=== PATIENT | female | born 1945 | race Caucasian/White ===

== ENCOUNTER → 2016-09-22 | Outpatient (CLI) | payer BC ==
[~2016-09-22] MED LIST: CHOL100010 PO; DABI150C PO; ESCI10TA17 PO; FLUT0.15 NAE; LEVO100T7 PO; LORA10CA2 PO; METO100T44 PO; MULT-506 PO; VRPSR180 PO
== END | disposition home or self-care (01) ==
LOC: C.LABBFT 12:42
PROVIDERS: ATTEND Physician Assistant Medical
DX: I48.0 Paroxysmal atrial fibrillation (principal); Z51.81 Encounter for therapeutic drug level monitoring; Z79.899 Other long term (current) drug therapy

== ENCOUNTER → 2016-10-08 | Outpatient (CLI) | payer BC ==
[2016-10-08 17:40] LABS: BASO % 0.8 %; BASO ABS # 0.07 K/uL (0-0.2); COMPLETE YES; EOS % 4.5 %; HEMATOCRIT 44.6 % (37-47); IG% 0.2 %; LYMPH % 24.5 %; MEAN CELL VOLUME 93.1 fL (80-100); MEAN CORPUSCULAR HEMOGLOBIN 30.7 pg (25-34); MEAN PLATELET VOLUME 10.1 fL (7.4-10.4); PLATELET COUNT 401 K/uL (130-400); RED BLOOD COUNT 4.79 M/uL (4.2-5.4); WHITE BLOOD COUNT 8.97 K/uL (4.8-10.8)
[2016-10-08 17:51] LABS: ALT/SGPT 31 U/L (12-78); BLOOD UREA NITROGEN 26 mg/dl (7-18); BUN/CREATININE RATIO 14.4 (10-20); CALCIUM 9.7 mg/dl (8.5-10.1); CARBON DIOXIDE 26 mmol/L (21-32); CHLORIDE 101 mmol/L (98-107); CHOLESTEROL 235 mg/dl (0-200); GLUCOSE 103 mg/dl (70-99); POTASSIUM 3.6 mmol/L (3.5-5.1); SODIUM 139 mmol/L (136-145)
[2016-10-08 18:01] LABS: ALB/GLOB RATIO 1.2 (0.9-2); ALKALINE PHOSPHATASE 92 U/L (45-117); AST/SGOT 18 U/L (15-37); CHOLESTEROL/HDL RATIO 4.9; HDL CHOLESTEROL 48 mg/dl; LDL CHOLESTEROL CALCULATED 147 mg/dl; TRIGLYCERIDES 199 mg/dl (0-150); VERY LOW DENSITY LIPOPROT CALC 40 mg/dl
[2016-10-09 06:38] LABS: ESTIMATED AVERAGE GLUCOSE 123 mg/dl; HA1C FLAG Normal (Normal)
== END | disposition home or self-care (01) ==
LOC: C.LABBFT 12:01
PROVIDERS: ATTEND Internal Medicine Cardiovascular Disease
DX: Z00.00 Encounter for general adult medical examination without abnormal findings (principal); Z11.59 Encounter for screening for other viral diseases; E03.9 Hypothyroidism, unspecified; I10 Essential (primary) hypertension; R73.01 Impaired fasting glucose; E78.5 Hyperlipidemia, unspecified; I48.0 Paroxysmal atrial fibrillation

== ENCOUNTER → 2016-11-19 | Outpatient (CLI) | payer BC ==
[2016-11-19 13:20] LABS: BLOOD UREA NITROGEN 24 mg/dl (7-18); BUN/CREATININE RATIO 17.2 (10-20); CARBON DIOXIDE 27 mmol/L (21-32); CHLORIDE 103 mmol/L (98-107); GLUCOSE 93 mg/dl (70-99); POTASSIUM 3.6 mmol/L (3.5-5.1); SODIUM 138 mmol/L (136-145)
[2016-11-19 13:31] LABS: THYROID STIMULATING HORMONE 0.264 uIu/ml (0.300-4.500)
== END | disposition home or self-care (01) ==
LOC: C.LABBFT 10:03
PROVIDERS: ATTEND Internal Medicine
DX: E03.9 Hypothyroidism, unspecified (principal); N18.3 Chronic kidney disease, stage 3 (moderate)

== ENCOUNTER → 2017-03-23 | Outpatient (CLI) | payer BC ==
[~2017-03-23] MED LIST changes: -METO100T44 PO; +METO1TAB69 PO
--- NOTE | 2017-03-24 15:21 | MAMMOGRAPHY REPORT ---
BILATERAL DIGITAL SCREENING MAMMOGRAM TOMOSYNTHESIS WITH CAD: 03/23/2017 CLINICAL HISTORY: Routine screening. Patient has no complaints. TECHNIQUE: Breast tomosynthesis in addition to standard 2D mammography was performed. Current study was also evaluated with a Computer Aided Detection (CAD) system. COMPARISON: Comparison is made to exams dated: 03/21/2016 mammogram, 03/20/2015 ultrasound, 03/20/20 15 mammogram, 03/12/2015 mammogram, 03/09/2014 mammogram, and 03/01/2013 mammogram - [facility]. BREAST COMPOSITION: The tissue of both breasts is heterogeneously dense, which may obscure small mas ses. FINDINGS: There are mild vascular calcifications and scattered benign coarse calcifications in the b reasts. No suspicious mass, architectural distortion or cluster of microcalcifications is seen. IMPRESSION: ACR BI-RADS CATEGORY 2: BENIGN There is no mammographic evidence of malignancy. A 1 year screening mammogram is recommended. The pa tient will receive written notification of the results. Approximately 10% of breast cancers are not detected with mammography. A negative mammographic report should not delay biopsy if a clinically suggestive mass is present. Amara Trejo M.D. ay/:03/24/2017 08:22:17 Emergency Medicine Nurse Practitioner: Jessica NATHAN(R)(M), [facility] letter sent: Normal 1/2 BI-RADS Code: ACR BI-RADS Category 2: Benign
== END | disposition home or self-care (01) ==
LOC: C.MAMM 11:41
PROVIDERS: ATTEND Obstetrics & Gynecology
DX: Z12.31 Encounter for screening mammogram for malignant neoplasm of breast (principal)

== ENCOUNTER → 2017-06-05 | Outpatient (CLI) | payer BC ==
[~2017-06-05] MED LIST changes: +METO100T44 PO; -METO1TAB69 PO
[2017-06-05 12:50] LABS: BLOOD UREA NITROGEN 19 mg/dl (7-18); CALCIUM 9.3 mg/dl (8.5-10.1); CARBON DIOXIDE 23 mmol/L (21-32); GLUCOSE 106 mg/dl (70-99); POTASSIUM 3.8 mmol/L (3.5-5.1); SODIUM 135 mmol/L (136-145)
== END | disposition home or self-care (01) ==
LOC: C.LABBFT 10:35
PROVIDERS: ATTEND Internal Medicine
DX: Z00.00 Encounter for general adult medical examination without abnormal findings (principal); E03.9 Hypothyroidism, unspecified; N18.3 Chronic kidney disease, stage 3 (moderate)

== ENCOUNTER → 2018-01-11 | Outpatient (CLI) | payer BC | END | disposition home or self-care (01) | LOC: C.MAMM 12:13 | PROVIDERS: ATTEND Internal Medicine | DX: Z00.00 Encounter for general adult medical examination without abnormal findings (principal); M81.0 Age-related osteoporosis without current pathological fracture ==

== ENCOUNTER 2018-12-12 09:02 | Inpatient (IN) ==
[2018-12-12] MEDS ORDERED: dilTIAZem HCl 5 MG/ML 5 ML VIAL IV ONE (09:23)
[2018-12-12] MEDS ORDERED: dilTIAZem HCl 5 MG/ML 5 ML VIAL IV STA (09:24)
[2018-12-12] MEDS ORDERED: SODIUM CHLORIDE 0.9% 500 ML IV SCH (09:30)
[2018-12-12] MEDS ORDERED: dilTIAZem HCl 125 MG in DEXTROSE 5% 100 ML IV SCH (09:30)
[2018-12-12 09:35] LABS: Hematocrit (blood only) 40.2 % (37-47); Mean Corpuscular Hgb Conc 34.8 g/dL (32-36); Mean Corpuscular Volume 90.1 fL (80-100); Platelet Count 321 K/uL (130-400); RDW Coefficient of Variation 13.9 % (11.5-14.5); RDW Standard Deviation 46.1 fL (36.4-46.3); Red Blood Count 4.46 M/uL (4.2-5.4); White Blood Count 14.06 K/uL (4.8-10.8)
[2018-12-12 09:36] LABS: iSTAT Creatinine 1.6 mg/dl (0.6-1.3); iSTAT Ionized Calcium 1.09 mmol/l (1.12-1.32)
--- NOTE | 2018-12-12 09:43 | XRay Report ---
XR chest 1V portable HISTORY: 73 years-old Female Chest Pain acute atypical chest pain COMPARISON: Chest radiographs 07/12/2018 TECHNIQUE: Portable AP view of the chest FINDINGS: Cardiac silhouette is enlarged, unchanged. Stable positioning of left subclavian pacer. Calcification the thoracic aortic arch. No pneumothorax or large pleural effusion, focal airspace consolidation or overt pulmonary edema. Mild blunting of the left costophrenic angle. Degenerative changes of the kian ulders and spine. IMPRESSION: 1. Cardiomegaly without overt pulmonary 2. Mild blunting of the left costophrenic angle may be secondary to atelectasis or trace effusion. The above report was generated using voice recognition software. It may contain grammatical, syntax o r spelling errors. Electronically signed by: Demetrius Nesbitt M.D. 12/12/2018 9:41 AM
[2018-12-12 09:45] LABS: Alanine Aminotransferase 38 U/L (12-78); Albumin Level 3.2 gm/dl (3.4-5.0); Aspartate Aminotransferase 21 U/L (15-37); BUN Creatinine Ratio 7.7 (10-20); Blood Urea Nitrogen 13 mg/dl (7-18); Calcium 9.4 mg/dl (8.5-10.1); Carbon Dioxide 23 mmol/L (21-32); Chloride 98 mmol/L (98-107); Creatinine Clr Calc Pharmacy 24.7 ml/min; Est GFR (African American) 36.1; Est GFR (Non-African American) 31.2; Glucose 136 mg/dl (70-99); Sodium 132 mmol/L (136-145)
[2018-12-12 09:46] LABS: INR 1.3 (0.9-1.1); Partial Thromboplastin Ratio 1.5; Prothrombin Time 12.8 Seconds (9.0-12.0)
[2018-12-12 09:50] LABS: Albumin Globulin Ratio 0.7 (0.9-2); Alkaline Phosphatase 90 U/L (45-117); Bilirubin,Total 0.9 mg/dl (0.2-1); Creatine Kinase 67 U/L (26-192); Globulin 4.5 gm/dl (2.5-4.0); Total Protein 7.7 gm/dl (6.4-8.2); Troponin I < 0.015 ng/ml (0-0.045)
[2018-12-12] MEDS ORDERED: METOPROLOL TARTRATE 1 MG/ML VIAL IV STA ×3 (09:53→10:54)
[2018-12-12] MEDS ORDERED: ACETAMINOPHEN 325 MG TAB ONE (09:57)
--- NOTE | 2018-12-12 10:14 | Emergency Department Note ---
Entered by Yoselyn Gonzalez acting as a scribe for Miguel Blair DO History of Present Illness General Chief complaint: Chest Pain Stated complaint: chest pain Time Seen by Provider: 12/12/18 09:23 Source: patient and family (daughter) History of Present Illness Onset (ago): hour(s) (this morning) Location: chest Pain Consistency: + other (episode) Maximum Pain Intensity: 0 Quality: + other (cardiac issue) Relieved By: not by medication (Pradaxa) Associated symptoms: + denies other symptoms (chest pain, lightheadedness ) and + other (diaphoresis, fatigue, instability on feet, back pain, hot/cold feelings, electrolyte imbalance) The patient is a 73 year old female that is presenting to the Emergency Room with complaints of an episode of cardiac issues that worsened this morning. The patient reports that she was feeling nauseous and unstable on her feet. She states that she had back pain but denies any true chest pain. She notes that she currently feels fatigued but denies feeling lightheaded. She reports that she has a history of atrial fibrillation and that she has a pacemaker in place. She denies that she has a defibrillator in place. She notes that she takes Pradaxa. She states that she has been compliant with her medication but notes that she was unable to take her medication this morning secondary to her nausea. The patients daughter reports that the patient was diaphoretic this morning and was unstable on her feet. Her daughter states that the patient fell in the hallway but she denies that the patient hit her head. Her daughter reports that the patient has been unable to walk more than 10 steps at a time without having to sit down due to fatigue. Her daughter notes that the patient was recently in a hospital in [place] for 4 days and diagnosed with a possible UTI. Her daughter states that the patient went to the hospital at that time because she was unstable on her feet and was unable to get herself out of bed. Her daughter notes that the patient was alternating between feeling hot and cold before, during, and after the hospital stay. Her daughter reports that the patient was given fluid during her stay and notes that she went into congestive heart failure as a result. The patients daughter notes that the patients sodium and potassium levels were low during her hospital stay. Her daughter states that the patient had an MRI, CT, and echo completed at that time. Her daughter notes that the patient was started on an antibiotic for a UTI due to some bacteria in her urine culture and an elevated white blood count. Her daughter states that the patient has not felt like herself since being discharged. Her daughter reports that the patient is always in atrial fibrillation. Home Medications Home Medications Medication Instructions Recorded Confirmed Type DABIGATRAN ETEXILATE MESYLATE 150 mg PO BID #0 cap 03/22/14 History (PRADAXA) Escitalopram (Lexapro) 10 mg PO DAILY #0 tab 03/22/14 History LORATADINE (CLARITIN) 10 mg PO DAILY PRN #0 cap 03/22/14 History Verapamil HCl (Verapamil HCl ER) 360 mg PO DAILY #180 03/22/14 History CHOLECALCIFEROL (Vitamin D) 2,000 inter.unit PO DAILY #0 tab 11/04/15 History Fluticasone Propionate (Nasal) 2 spry LAKESHA DAILY #0 11/04/15 History (Flonase Allergy Relief) LEVOTHYROXINE SODIUM 100 mg PO DAILY #0 11/04/15 History Metoprolol Succ (Toprol Xl) 100 mg PO DAILY #0 tab 11/04/15 History (Toprol-Xl ) Multivitamin 1 tab PO DAILY #0 tab 11/04/15 History Allergies Allergy/AdvReac Type Severity Reaction Status Date / Time No Known Allergies Allergy Unverified 11/04/15 14:21 Past Med/Surg History Medical History Pacemaker Episode of shaking (Acute) Headache (Acute) Stroke (Resolved) Migraine (Chronic) Atrial fibrillation (Chronic) Complete heart block Episode of shaking (Acute) Family History Other Family history non-contributory Social History Preferred Language: Algerian marital status: Current Living Situation: Spouse current occupational status: retired Feels Safe at Home: Yes Smoking Status: Never smoker Review of Systems See HPI for pertinent positives & negatives. and A total of 10 systems reviewed and were otherwise negative Physical Exam Vital Signs Vital Signs - 24 hr 12/12/18 09:25 12/12/18 09:29 12/12/18 09:30 Temperature 36.5 C Temperature Source Oral Sepsis Recent Fever Within 48 Hours No Sepsis New/Unexplained Change in Mental Status No Sepsis Action Taken by Nursing No Action Required Pulse Rate 190 H Pulse Rate [Apical] 135 H Respiratory Rate 20 Respiratory Effort / Characteristics Non-Labored Respiratory Depth Normal Respiratory Pattern Regular Blood Pressure 120/60 Blood Pressure [Right Arm] 110/69 Blood Pressure Mean 80 Blood Pressure Mean [Right Arm] 82 Pulse Oximetry 95 95 96 Oxygen Delivery Method Nasal Cannula Nasal Cannula Nasal Cannula Oxygen Flow Rate 3 3 12/12/18 09:54 Temperature Temperature Source Sepsis Recent Fever Within 48 Hours Sepsis New/Unexplained Change in Mental Status Sepsis Action Taken by Nursing Pulse Rate Pulse Rate [Apical] 130 H Respiratory Rate 26 H Respiratory Effort / Characteristics Respiratory Depth Respiratory Pattern Blood Pressure Blood Pressure [Right Arm] 120/68 Blood Pressure Mean Blood Pressure Mean [Right Arm] 85 Pulse Oximetry 100 Oxygen Delivery Method Nasal Cannula Oxygen Flow Rate CONSTITUTIONAL/VITAL SIGNS: Reviewed / noted above. GENERAL: Non-toxic in appearance. INTEGUMENTARY: Warm, dry, and [place]. HEAD: Normocephalic. EYES: without scleral icterus or trauma. ENT/OROPHARYNX: clear and moist. LYMPHADENOPATHY/NECK: Is supple without lymphadenopathy or meningismus. RESPIRATORY: Lungs clear and equal. CARDIOVASCULAR: Rapid irregular heart rate. GI/ABDOMEN: Soft and nontender. No organomegaly or pulsatile mass. No rebound or guarding. Normal bowel sounds. EXTREMITIES: Warm and well perfused. BACK: No CVA tenderness. NEUROLOGICAL: Intact without focal deficits. PSYCHIATRIC: normal affect. MUSCULOSKELETAL: Normally developed with good muscle tone. Course 0910:The patient was evaluated in room B01. A complete history and physical examination was performed. 0953: Upon reevaluation, the patient is still tachycardic. I ordered Lopressor- IV at this time. 1010: I discussed the patient's case with Dr. Ortega [facility], who will evaluate the patient for further management and care. 1020: Upon reevaluation, the patient is resting comfortably. I discussed laborat ory and radiographic results with the patient. She verbalized agreement of the treatment plan. The patient will be evaluated for further management and care. Consultations Consultation #1: I discussed the patient's case with Dr. Ortega [facility] [place], who will evaluate the patient for further management and care. Time: 10:10 Administered Medications Diltiazem HCl 125 mg/ Dextrose 125 mls @ 10 mls/hr IV .[id number] TRI; Protocol Stop: 01/11/19 09:29 Last Admin: 12/12/18 09:43 Dose: 10 mg/hr, 10 mls/hr Documented by: [id number] Cosigned by: [id number] Discontinued Medications Acetaminophen (Tylenol) Confirm Administered Dose 650 mg .ROUTE .STK-MED ONE Stop: 12/12/18 09:58 Last Admin: 12/12/18 09:58 Dose: 650 mg Documented by: [id number] Diltiazem HCl (Cardizem) Confirm Administered Dose 25 mg IV .STK-MED ONE Stop: 12/12/18 09:24 Last Increment: 12/12/18 09:24 Dose: 20 mg Documented by: [id number] Cosigned by: [id number] Diltiazem HCl (Cardizem) 20 mg IV NOW STA Stop: 12/12/18 09:25 Last Admin: 12/12/18 09:32 Dose: Not Given Documented by: [id number] Sodium Chloride (Nss) 500 mls @ 999 mls/hr IV .Q31M TRI Stop: 12/12/18 10:00 Last Infusion: 12/12/18 09:45 Dose: 0 mls/hr Documented by: [id number] Admin: 12/12/18 09:32 Dose: 999 mls/hr Documented by: [id number] Metoprolol Tartrate (Lopressor) 5 mg IV NOW STA Stop: 12/12/18 09:54 Last Admin: 12/12/18 09:59 Dose: 5 mg Documented by: [id number] Medical Decision Making Differential Diagnosis Differential diagnosis considered includes acute myocardial infarction, acute coronary syndrome, myocarditis, pericarditis, pericardial effusions /tamponad, esophageal perforation, thoracic aortic dissection, pulmonary embolism, pneumon ia, pneumothorax, pancreatitis, shingles, acute cholecystitis, perforated abdominal viscus. Medical Records Attestation: I reviewed the patient's medical records. Home Medications Current Medication List: was personally reviewed by me Laboratory Data Attestation: I reviewed the patient's lab results. Result diagrams: 12/12/18 09:17 12/12/18 09:17 Lab Results 12/12/18 12/12/18 12/12/18 Range/Units 09:17 09:17 09:17 WBC 14.06 H (4.8-10.8) K/uL RBC 4.46 (4.2-5.4) M/uL Hgb 14.0 (12.0-16.0) g/dL POC Hgb (12.0-16.0) g/dl Hct 40.2 (37-47) % POC Hct (37-47) % MCV 90.1 (80-100) fL MCH 31.4 (25-34) pg MCHC 34.8 (32-36) g/dL RDW Std Deviation 46.1 (36.4-46.3) fL RDW Coeff of Hernan 13.9 (11.5-14.5) % Plt Count 321 (130-400) K/uL MPV 9.0 (7.4-10.4) fL PT 12.8 H (9.0-12.0) Seconds INR 1.3 H (0.9-1.1) APTT 41.0 H (21.0-31.0) Seconds PTT Ratio 1.5 POC Sodium (135-144) mEq/L Sodium 132 L (136-145) mmol/L POC Potassium (3.3-5.0) mEq/L Potassium 4.0 (3.5-5.1) mmol/L POC Chloride (101-112) mEq/L Chloride 98 (98-107) mmol/L Carbon Dioxide 23 (21-32) mmol/L POC Total CO2 (24-31) mEq/l Anion Gap 11.0 (3-11) POC Anion Gap (16-25) mmol/L POC BUN (7-18) mg/dl BUN 13 (7-18) mg/dl Creatinine 1.63 H (0.6-1.2) mg/dl POC Creatinine (0.6-1.3) mg/dl Est Cr Clr Drug Dosing 24.7 ml/min Est GFR ( Amer) 36.1 Est GFR (Non-Af Amer) 31.2 BUN/Creatinine Ratio 7.7 L (10-20) Glucose 136 H (70-99) mg/dl POC Glucose (other) (70-99) mg/dl Calcium 9.4 (8.5-10.1) mg/dl POC Ioniz Calcium Diandra (1.12-1.32) mmol/l Total Bilirubin 0.9 (0.2-1) mg/dl AST 21 (15-37) U/L ALT 38 (12-78) U/L Alkaline Phosphatase 90 (45-117) U/L Total Creatine Kinase 67 (26-192) U/L POC Troponin I (0-0.045) ng/ml Troponin I < 0.015 (0-0.045) ng/ml Total Protein 7.7 (6.4-8.2) gm/dl Albumin 3.2 L (3.4-5.0) gm/dl Globulin 4.5 H (2.5-4.0) gm/dl Albumin/Globulin Ratio 0.7 L (0.9-2) Lipase 99 (73-393) U/L 12/12/18 12/12/18 Range/Units 09:21 09:22 WBC (4.8-10.8) K/uL RBC (4.2-5.4) M/uL Hgb (12.0-16.0) g/dL POC Hgb 15.0 (12.0-16.0) g/dl Hct (37-47) % POC Hct 44 (37-47) % MCV (80-100) fL MCH (25-34) pg MCHC (32-36) g/dL RDW Std Deviation (36.4-46.3) fL RDW Coeff of Hernan (11.5-14.5) % Plt Count (130-400) K/uL MPV (7.4-10.4) fL PT (9.0-12.0) Seconds INR (0.9-1.1) APTT (21.0-31.0) Seconds PTT Ratio POC Sodium 131 L (135-144) mEq/L Sodium (136-145) mmol/L POC Potassium 4.0 (3.3-5.0) mEq/L Potassium (3.5-5.1) mmol/L POC Chloride 96 L (101-112) mEq/L Chloride (98-107) mmol/L Carbon Dioxide (21-32) mmol/L POC Total CO2 19 L (24-31) mEq/l Anion Gap (3-11) POC Anion Gap 20.0 (16-25) mmol/L POC BUN 13 (7-18) mg/dl BUN (7-18) mg/dl Creatinine (0.6-1.2) mg/dl POC Creatinine 1.6 H (0.6-1.3) mg/dl Est Cr Clr Drug Dosing ml/min Est GFR ( Amer) Est GFR (Non-Af Amer) BUN/Creatinine Ratio (10-20) Glucose (70-99) mg/dl POC Glucose (other) 143 H (70-99) mg/dl Calcium (8.5-10.1) mg/dl POC Ioniz Calcium Diandra 1.09 L (1.12-1.32) mmol/l Total Bilirubin (0.2-1) mg/dl AST (15-37) U/L ALT (12-78) U/L Alkaline Phosphatase (45-117) U/L Total Creatine Kinase (26-192) U/L POC Troponin I < 0.03 (0-0.045) ng/ml Troponin I (0-0.045) ng/ml Total Protein (6.4-8.2) gm/dl Albumin (3.4-5.0) gm/dl Globulin (2.5-4.0) gm/dl Albumin/Globulin Ratio (0.9-2) Lipase (73-393) U/L Imaging Data Radiologist's Impression: Radiology results as stated below per my review and the radiologist's interpretation: XR chest 1V portable HISTORY: 73 years-old Female Chest Pain acute atypical chest pain COMPARISON: Chest radiographs 07/12/2018 TECHNIQUE: Portable AP view of the chest FINDINGS: Cardiac silhouette is enlarged, unchanged. Stable positioning of left subclavian pacer. Calcification the thoracic aortic arch. No pneumothorax or large pleural effusion, focal airspace consolidation or overt pulmonary edema. Mild blunting of the left costophrenic angle. Degenerative changes of the shoulders and spine. IMPRESSION: 1. Cardiomegaly without overt pulmonary 2. Mild blunting of the left costophrenic angle may be secondary to atelectasis or trace effusion. The above report was generated using voice recognition software. It may contain grammatical, syntax or spelling errors. Electronically signed by: Demetrius Nesbitt M.D. 12/12/2018 9:41 AM ECG Data Attestation: I personally reviewed and interpreted this ECG as follows: Indication: chest pain Rate (beats per minute): 194 Rhythm: atrial fibrillation Findings: no PAC, no PVC, no ST elevation and no ectopy Blood Pressure Blood Pressure Findings: Normal blood pressure MDM Narrative This is a 73-year-old female who presents to the ED with a chief complaint of generalized weakness and fatigue. The patient has a history of A. fib as well as a pacemaker. She is chronically on Pradaxa. The patient states that her symptoms have been going on for several days but worse today. Her initial EKG shows A. fib with a rate of 194. No ischemic changes. Her physical exam reve als generalized weakness. She does have a rapid irregular pulse on exam. White blood cell count was 14. Creatinine was 1.63. Troponin was negative and a chest x-ray was negative for acute disease. Other electrolytes and chemistries were unremarkable. The patient was initially treated with IV Cardizem bolus 20 mg and a 10 mg/h drip. She continued to be somewhat tachycardic with heart rates in the 120s to 140s. The patient was then given 5 mg IV Lopressor this decreased her rate to the 100-110's. The patient's symptoms did improve. She will be seen by the hospitalist, and I spoke with. Impression & Plan Atrial fibrillation with RVR Critical Care Time Critical Care Time: Yes Total Critical Care Time: 35 I have personally spent 35 minutes of critical care time in the direct management of this patient. This includes bedside care, interpretation of diagnostic studies, and testing, discussion with consultants, patient, and [facility], and other required patient management activities. This 35 minutes is in excess of all separately billable procedures. Discharge Plan Visit Data Chief Complaint: Chest Pain Stated Complaint: chest pain ED Provider: Miguel Blair Discharge Problem: Atrial fibrillation with RVR Patient Disposition: Being Evaluated by Hospitalist Forms Stand Alone Forms: Call Back Authorization, [facility] Prescriptions Prescriptions: No Action DABIGATRAN ETEXILATE MESYLATE (PRADAXA) 150 MG capsule 150 mg PO BID Qty: 0 RF: 0 Escitalopram (Lexapro) 10 MG tablet 10 mg PO DAILY Qty: 0 RF: 0 LORATADINE (CLARITIN) 10 MG capsule 10 mg PO DAILY PRN (Reason: Nasal Congestion) Qty: 0 RF: 0 Verapamil HCl (Verapamil HCl ER) 180 MG [id number] 360 mg PO DAILY Qty: 180 RF: 0 Fluticasone Propionate (Nasal) (Flonase Allergy Relief) 50 MCG/ACT SPR 2 spry LAKESHA DAILY Qty: 0 RF: 0 LEVOTHYROXINE SODIUM 100 MCG tablet 100 mg PO DAILY Qty: 0 RF: 0 Metoprolol Succ (Toprol Xl) (Toprol-Xl ) 100 MG [id number] 100 mg PO DAILY Qty: 0 RF: 0 Multivitamin tablet 1 tab PO DAILY Qty: 0 RF: 0 CHOLECALCIFEROL (Vitamin D) 1,000 INTER.UNIT tablet 2,000 inter.unit PO DAILY Qty: 0 RF: 0 Referrals Referrals: Vivien Fragoso MD [Primary Care Provider] - The scribe's documentation has been prepared under my direction and personally reviewed by me in its entirety. I confirm that the note above accurately reflects all work, treatment, procedures, and medical decision making performed by me.
[2018-12-12 10:23] LABS: Basophils # (auto) 0.04 K/uL (0-0.2); Basophils % (auto) 0.3 %; Eosinophils # (auto) 0.02 K/uL (0-0.5); Eosinophils % (auto) 0.1 %; Immature Granulocytes # (auto) 0.07 K/uL (0.00-0.02); Immature Granulocytes % (auto) 0.5 %; Lymphocytes # (auto) 1.84 K/uL (1.2-3.4); Lymphocytes % (auto) 13.1 %; Monocytes # (auto) 0.65 K/uL (0.11-0.59); Monocytes % (auto) 4.6 %; Neutrophils # (auto) 11.44 K/uL (1.4-6.5); Neutrophils % (auto) 81.4 %
--- NOTE | 2018-12-12 10:56 | History & Physical Report ---
Date of Service December 12, 2018 Assessment & Plan (1) Atrial fibrillation with RVR: 73 y/o F Hx CVA 2009, HTN, HLD, hypothyroid, SVTs, chronic AF, complete heart block 2016 leading to pacer placement. The pt presented with nonspecific complaint of nausea, diaphoresis, fatigue and an unsteady gait. She had some back pain but denied CP or SOB. She was apparently unable to walk across the room without resting due to fatigue. When she arrived in the ER, rapid AF in the 200BPM range was apparent. She responded to a dose of diltiazem and IV Metoprolol with symptomatic improvement, but her rate remained in the 120s. Initial labs demonstrated mild ALINA and hyponatremia, and were otherwise unremarkable including a normal troponin. 1) Rapid AF - placed on a Diltiazem drip. Received 7.5 mg Metoprolol. We can be liberal with the rate agents contingent on her BP as she has a pacer. She is anticoagulated with Pradaxa. Her daily Toprol was initilly prescribed at 100QD and then reduced o 50. 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 Due to her symptoms, an additional trop is pending. 2) History of CVA - remains on Pradaxa 3) HTN - cont Verapamil, Toprol when off Diltiazem drip 4) HLD is reported in chart - ni treated 5) Hypothyroidism - cont Synthroid - TSH pending Full code - Pradaxa prophylaxis Total time for this admit including review of labs, meds, imaging, records - discussion with pt and ER attending - 38 min Present on Admission?: Yes History of Present Illness Chief Complaint: Rapid AF Primary Care Provider: Vivien Fragoso MD 73 y/o F Hx CVA 2009, HTN, HLD, hypothyroid, SVTs, chronic AF, complete heart block 2016 leading to pacer placement. The pt presented with nonspecific complaint of nausea, diaphoresis, fatigue and an unsteady gait. She had some back pain but denied CP or SOB. She was apparently unable to walk across the room without resting due to fatigue. When she arrived in the ER, rapid AF in the 200BPM range was apparent. She responded to a dose of diltiazem and IV Metoprolol with symptomatic improvement, but her rate remained in the 120s. Initial labs demonstrated mild ALINA and hyponatremia, and were otherwise unremarkable including a normal troponin. PMH: 1) Chornic AF 2) SVTs 3) CVA 2009 - prior to diagnosis of arrhythmias - residual L weakness - was treated with TPA 4) Hypothyroidism 5) HTN 6) HLD - untreated 7) Vitamin D deficiency 8) Complete heart block - may have occured as she was requiring a high dose of rate agents for AF - she received a pacer in 2016 Surgical: No surgical history aside from a pacer Social: No history of drinking or smoking Family: Father due to lung disease - possibly COPD and silicosis Mother following head trauma Allergies Allergy/AdvReac Type Severity Reaction Status Date / Time No Known Allergies Allergy Unverified 12/12/18 11:00 Home Medications Home Medications Medication Instructions Recorded Confirmed Type acetaminophen [Tylenol] 325 mg PO Q6H PRN 12/12/18 12/12/18 History cephalexin 500 mg PO TID 12/12/18 12/12/18 History cholecalciferol (vitamin D3) 2,000 unit PO HS 12/12/18 12/12/18 History [Vitamin D3] dabigatran etexilate [Pradaxa] 150 mg PO BID 12/12/18 12/12/18 History escitalopram oxalate 10 mg PO QAM 12/12/18 12/12/18 History fluticasone propionate [Flonase 2 spray INTRANASAL DAILY PRN 12/12/18 12/12/18 History Allergy Relief] levothyroxine 100 mcg PO QAM 12/12/18 12/12/18 History metoprolol succinate 50 mg PO QAM 12/12/18 12/12/18 History verapamil 360 mg PO QAM 12/12/18 12/12/18 History Past Med/Surg History Medical History Pacemaker Episode of shaking (Acute) Headache (Acute) Stroke (Resolved) Migraine (Chronic) Atrial fibrillation (Chronic) Complete heart block Episode of shaking (Acute) Family History Other Family history non-contributory Social History Preferred Language: Prydeinig marital status: Current Living Situation: Spouse current occupational status: retired Feels Safe at Home: Yes Smoking Status: Never smoker Review of Systems Review of Systems: Gen: Generalized fatigue reported, diaphoresis - denies f marquis ENT: Denies congestion, throat pain, hearing loss Eyes: Denies acute visual changes CV: Denies CP - did not discern palpitations Pulmonary: Denies SOB, cough, wheezing GI: Nausea without vomiting Neuro: Denies acute or unilateral weakness - gait was acutely unsteady Musculoskeletal: Denies joint pain, inflammation Endocrine: Denies polydipsia, polyuria Skin: Denies acute rashes or ulcers Physical Exam Physical Exam: General: AAO x 3, no distress ENT: No erythema or exudates, no thrush Eyes: VERONICA, EOMI Head and neck: Normocephalic, atraumatic, No JVD, neck is supple. Chest/heart: Nontender, S1,2, tachy/irreg Lungs: CTAB, no wheezing or crackles Abdomen: Nontender, nondistended, BS+ Neuro: AAO x 3, speech is clear, no unilateral weakness or loss of sensation, coordination intact Musculoskeletal: No joint inflammation, muscle tenderness, FROM Skin: No acute rashes or ulcers Extremities: No clubbing, cyanosis, edema Results & Data Vital Signs (Past 12 Hours) Vital Signs Temp Pulse Pulse Resp BP BP Pulse Ox 12/12/18 10:25 128 H 18 111/71 99 12/12/18 10:12 110 H 24 103/64 93 12/12/18 10:11 111 H 22 93 12/12/18 10:01 136 H 24 125/73 100 12/12/18 10:00 146 H 24 99 12/12/18 09:54 143 H 130 H 26 H 120/68 120/68 100 12/12/18 09:50 139 H 22 100 12/12/18 09:40 136 H 24 98 12/12/18 09:31 132 H 32 H 112/68 98 12/12/18 09:30 132 H 135 H 21 110/69 97 12/12/18 09:29 95 12/12/18 09:25 97.7 F 190 H 20 120/60 95 12/12/18 09:20 195 H 32 H 98 12/12/18 09:13 200 H 16 Diagnostic Findings EKG: initial - AF, RVR 190s CXR: No evidence of CHF or PNM PG Care Time/CCT Total # of Minutes Spent Total Time Spent with Patient: Total time spent is greater than 50% in coordination of care (as documented) at patient's floor/unit and/or counseling patient:
[2018-12-12] MEDS ORDERED: SODIUM CHLORIDE 0.9% 500 ML IV ONE (11:52)
[2018-12-12] MEDS ORDERED: MAGNESIUM HYDROXIDE SUSP 30 ML UDC PO PRN (12:38)
[2018-12-12] MEDS ORDERED: POLYETHYLENE (MIRALAX) 17 GM PACK PO PRN (12:38)
[2018-12-12] MEDS ORDERED: ALUMINUM/MAGNESIUM SUSP 30 ML UDC PO PRN (12:38)
[2018-12-12] MEDS ORDERED: MoRPHine SULFATE 2 MG/ML CARP IV PRN (12:38)
[2018-12-12] MEDS ORDERED: METOPROLOL TARTRATE 1 MG/ML VIAL IV ONE (13:23)
[2018-12-12] MEDS: SODIUM CHLORIDE 0.9% 1000ML 1,000 ML IV SCH ×2 (13:24→20:48)
[2018-12-12] MEDS: dilTIAZem HCl 125 MG in DEXTROSE 5% 100 ML IV SCH ×2 (14:51→23:17)
[2018-12-12] MEDS: ONDANSETRON INJ 2 MG/ML 2 ML VIAL IV PRN (16:36)
[2018-12-12] MEDS: DABIGATRAN ETEXILATE 75 MG CAP PO SCH (20:48)
[2018-12-13] MEDS: ACETAMINOPHEN 325 MG TAB PO PRN ×3 (03:54→21:54)
[2018-12-13] MEDS: LEVOTHYROXINE SODIUM 100 MCG TABLET PO SCH (06:36)
[2018-12-13 07:08] LABS: Basophils # (auto) 0.03 K/uL (0-0.2); Basophils % (auto) 0.3 %; Hematocrit (blood only) 32.7 % (37-47); Hemoglobin 11.2 g/dL (12.0-16.0); Immature Granulocytes # (auto) 0.02 K/uL (0.00-0.02); Immature Granulocytes % (auto) 0.2 %; Lymphocytes # (auto) 1.42 K/uL (1.2-3.4); Lymphocytes % (auto) 15.4 %; Mean Corpuscular Hgb Conc 34.3 g/dL (32-36); Mean Corpuscular Volume 91.9 fL (80-100); Mean Platelet Volume 8.8 fL (7.4-10.4); Monocytes # (auto) 0.34 K/uL (0.11-0.59); Monocytes % (auto) 3.7 %; Neutrophils # (auto) 7.42 K/uL (1.4-6.5); Neutrophils % (auto) 80.4 %; Platelet Count 223 K/uL (130-400); RDW Coefficient of Variation 14.1 % (11.5-14.5); RDW Standard Deviation 47.5 fL (36.4-46.3); Red Blood Count 3.56 M/uL (4.2-5.4); White Blood Count 9.23 K/uL (4.8-10.8)
[2018-12-13 07:37] LABS: BUN Creatinine Ratio 8.7 (10-20); Calcium 8.2 mg/dl (8.5-10.1); Est GFR (African American) 66.8; Est GFR (Non-African American) 57.6; Magnesium 1.6 mg/dl (1.8-2.4); Potassium 3.2 mmol/L (3.5-5.1)
[2018-12-13] MEDS: dilTIAZem HCl 125 MG in DEXTROSE 5% 100 ML IV SCH (08:05)
[2018-12-13] MEDS: METOPROLOL SUCC 50MG EXT REL TAB PO SCH (08:06)
[2018-12-13] MEDS: ESCITALOPRAM OXALATE 10 MG TAB PO SCH (08:06)
[2018-12-13] MEDS: VERAPAMIL HCL 180 MG TABCR PO SCH ×2 (08:06→21:55)
[2018-12-13] MEDS: DABIGATRAN ETEXILATE 75 MG CAP PO SCH ×2 (08:06→21:54)
[2018-12-13] MEDS ORDERED: POTASSIUM CHLORIDE 10 MEQ / 100ML WTR IV STA (08:22)
[2018-12-13] MEDS ORDERED: FUROSEMIDE 20 MG in SYRINGE 0 ML IV ONE (08:30)
[2018-12-13] MEDS: POTASSIUM CHLORIDE / WTR 10 MEQ/100 ML PLCT IV SCH ×3 (08:37→10:29)
[2018-12-13] MEDS: cefTRIAXone SODIUM 1,000 MG in DEXTROSE 5% 50 ML IV SCH (08:38)
[2018-12-13] MEDS: MAGNESIUM SULFATE / D5W 1 GM/100 ML BAG IV SCH ×2 (08:38→09:39)
[2018-12-13 08:39] LABS: Appearance Urine Clear (Clear); Bacteria Urine Automated Negative (Negative); Bilirubin Urine Negative (Negative); Blood Urine Negative (Negative); Color Urine Yellow; Glucose Urine UA Negative (Negative); Ketones Urine Negative (Negative); Leukocyte Esterase Urine Trace (Negative); Nitrite Urine Negative (Negative); Protein Urine Trace (Negative); RBC Urine Automated 0-4 /hpf (0-4); Specific Gravity Urine 1.014 (1.000-1.030); Urobilinogen Urine Negative (Negative)
[2018-12-13] MEDS: ALBUT/IPRATROP 3MG/0.5MG NEB 3 ML VIAL NEB PRN (09:08)
[2018-12-13 11:13] LABS: Lyme Ab IgG w/WB Rflx Negative (Negative); Lyme Ab IgM w/WB Rflx Negative (Negative)
--- NOTE | 2018-12-13 17:30 | Hospitalist Progress Note ---
Date of Service December 13, 2018 Assessment & Plan (1) Atrial fibrillation with RVR: 73 y/o F Hx CVA 2009, HTN, HLD, hypothyroid, SVTs, chronic AF, complete heart block 2015 leading to pacer placement. The pt presented with nonspecific complaint of nausea, diaphoresis, fatigue and an unsteady gait. She had some back pain but denied CP or SOB. She was apparently unable to walk across the room without resting due to fatigue. When she arrived in the ER, rapid AF in the 200BPM range was apparent. She responded to a dose of diltiazem and IV Metoprolol with symptomatic improvement, but her rate remained in the 120s. Initial labs demonstrated mild ALINA and hyponatremia, and were otherwise unremarkable including a normal troponin. Rapid AF - placed on a Diltiazem drip. Received 7.5 mg Metoprolol. We can be liberal with the rate agents contingent on her BP as she has a pacer. She is anticoagulated with Pradaxa. Her daily Toprol was initilly prescribed at 100QD and then reduced o 50. We will restart 100QD and should discuss this with her paint specialist prior to DC. given good rate control will initiate short acting verapamil inhopes of returning to her usual home medications, and that this issue was affected by physiologic stressors Full code - Pradaxa dvt prophylaxis (2) Fever: fever without defined source, check cultures, get records and check lyme (3) Hypokalemia: replete, apparently this was issue at recent hospital stay (4) Hypomagnesemia: replete (5) HTN (hypertension): now with metoprolol at 100mg restart short acting verapamil (6) History of CVA (cerebrovascular accident): control risk factors, remains on Pradaxa (7) Hypothyroidism: on synthroid Results & Data Vital Signs (Past 12 Hours) Vital Signs Temp Pulse Pulse Resp BP Pulse Ox 12/13/18 15:56 36.8 C 66 17 104/67 94 12/13/18 14:36 67 12/13/18 13:46 67 12/13/18 12:35 74 12/13/18 11:10 37.6 C H 85 20 107/66 94 12/13/18 09:11 91 H 16 94 12/13/18 08:25 37.5 C 133 H 28 H 137/71 93 12/13/18 07:11 37.6 C H 102 H 20 98/59 L 94 12/13/18 06:37 37.7 C H PG Care Time/CCT Total # of Minutes Spent Total Time Spent with Patient: Total time spent is greater than 50% in coordination of care (as documented) at patient's floor/unit and/or counseling patient:
[2018-12-13] MEDS: GUAIFENESIN/CODEINE 200MG/20MG 10ML UDC PO PRN (17:42)
[2018-12-13] MEDS: VERAPAMIL HCL 40 MG TAB PO SCH ×2 (18:19→22:28)
[2018-12-14] MEDS: LEVOTHYROXINE SODIUM 100 MCG TABLET PO SCH (06:26)
[2018-12-14] MEDS: VERAPAMIL HCL 40 MG TAB PO SCH (06:26)
[2018-12-14] MEDS: ALBUT/IPRATROP 3MG/0.5MG NEB 3 ML VIAL NEB PRN (08:05)
[2018-12-14] MEDS: cefTRIAXone SODIUM 1,000 MG in DEXTROSE 5% 50 ML IV SCH (08:57)
[2018-12-14] MEDS: dilTIAZem HCL 240 MG CAPCR PO SCH ×2 (08:57→10:50)
[2018-12-14] MEDS: ESCITALOPRAM OXALATE 10 MG TAB PO SCH (08:58)
[2018-12-14] MEDS: DABIGATRAN ETEXILATE 75 MG CAP PO SCH ×2 (08:58→20:32)
[2018-12-14] MEDS: METOPROLOL SUCC 50MG EXT REL TAB PO SCH (08:58)
--- NOTE | 2018-12-14 08:58 | Cardiology Consultation ---
Date of Consultation December 14, 2018 Assessment & Plan (1) Atrial fibrillation with RVR: She has a long history of atrial fibrillation and although the heart rates have been somewhat elevated in general they have been reasonable. She now presents with a very rapid heart rate on the same medications she has been on. I suspect the increase in heart rate is due to high catecholamines. I agree that we need better rate control when she is in atrial fibrillation, now she is in sinus rhythm but I would still like to increase her AV jason blockers. I would like to put her back on her outpatient verapamil (360 mg), continue the metoprolol succinate 100 mg daily and since her blood pressure is borderline (although asymptomatic) add digoxin. Since her creatinine is elevated today I am just going to give her loading dose of 0.5 mg in divided doses. (2) Pacemaker: I believe her pacemaker is functioning normally on telemetry, but I will interrogated today and it can also tell us her atrial fibrillation burden and overall heart rates. (3) AV block: She has a history of heart block, at times however she is conducting and the pacemaker can accommodate that. It gives an unusual look on telemetry but is likely normal function. We will evaluate the pacer today. History of Present Illness Reason for Consultation: AF with RVR Attending Physician: Alden Monet MD History of Present Illness This is a 73-year-old woman who has a long history of palpitations which I believe were first documented on event monitoring around July of 1999. At that time she was wearing an event monitor, had some palpitations and sent in a recording on August 03, 1999 which shows an irregular intermittently wide complex tachycardia. Possibilities included bypass tract conduction during atrial fibrillation versus aberrancy. It does not appear to be a ventricular arrhythmia. At that time she was evaluated by Dr. Thang Caballero who felt that she should have an electrophysiologic study, his letter suggests that to exclude a bypass tract conduction however she was nervous about the possible risks apparently and that study was never done. I believe that rhythm probably represented atrial fibrillation with rapid conduction and aberrancy. She apparently continued to have intermittent palpitations (although she is very vague about her symptoms) until presenting with a large CVA and was sent to [facility]. That occurred in December of 2009, evaluation at [facility] demonstrated a moderate sized patent foramen ovale with [id number] shunting which could be induced by Valsalva but no atrial mass or thrombus identified. Additionally she had minor atherosclerosis in her carotids but no obstructive disease. She has been on anticoagulation since. More recently in 2016 she had syncope and documented complete heart block as well as rapidly conducted atrial fibrillation when her AV jason blocking medications were withheld and she had a dual-chamber pacemaker implanted on 11/06/2015. Her atrial fibrillation was been becoming quite frequent and she was started on Multaq in the summer of 2015. That was not very effective in controlling her arrhythmia and she may have been having side effects on it therefore it was discontinued. She spent the majority of her time in atrial fibrillation (although not continuously), her digoxin was discontinued and metoprolol succinate was added 10/10/2016. Heart rate histograms indicate that she is not always in atrial fibrillation although we cannot necessarily account for sensing dropout due to lack of sensing of atrial fibrillation. During atrial fibrillation her heart rate did tend to be fast and when I had last seen her in the office July 12, 2018 she was on verapamil ER 360 mg daily and I added metoprolol succinate 50 mg daily. She presents now with a febrile illness and a rapid heart rate, initially at [facility] in [place] and now here. Her heart rate was very fast when she first arrived, she was started on intravenous diltiazem and her heart rate was controlled. That was discontinued and she was on her outpatient dose of verapamil as well as an increased dose of metoprolol succinate to 100 mg daily until this morning. At the time of my evaluation she is feeling weak and tired, she does not feel palpitations and she has not had difficulty with lightheadedness, dizziness or palpitations preceding this admission. She has not had chest discomfort and her cardiac enzymes are negative. Echocardiography done at [facility] shows normal left ventricular function. Allergies Allergy/AdvReac Type Severity Reaction Status Date / Time No Known Allergies Allergy Unverified 12/12/18 11:00 Home Medications Home Medications Medication Instructions Recorded Confirmed Type acetaminophen [Tylenol] 325 mg PO Q6H PRN 12/12/18 12/12/18 History cephalexin 500 mg PO TID 12/12/18 12/12/18 History cholecalciferol (vitamin D3) 2,000 unit PO HS 12/12/18 12/12/18 History [Vitamin D3] dabigatran etexilate [Pradaxa] 150 mg PO BID 12/12/18 12/12/18 History escitalopram oxalate 10 mg PO QAM 12/12/18 12/12/18 History fluticasone propionate [Flonase 2 spray INTRANASAL DAILY PRN 12/12/18 12/12/18 History Allergy Relief] levothyroxine 100 mcg PO QAM 12/12/18 12/12/18 History metoprolol succinate 50 mg PO QAM 12/12/18 12/12/18 History verapamil 360 mg PO QAM 12/12/18 12/12/18 History Patient History Medical History Pacemaker Episode of shaking (Acute) Headache (Acute) Stroke (Resolved) Migraine (Chronic) Atrial fibrillation (Chronic) Complete heart block Episode of shaking (Acute) Family History Other Family history non-contributory Social History Preferred Language: Taiwanese Communication Ability: Effective Film Splicer Required: No Beliefs That Will Affect Care: None marital status: Current Living Situation: Spouse current occupational status: retired Other Information That Helps Us Care for You: No Feels Safe at Home: Yes Safety Concerns: Feels Safe At This Time Smoking Status: Never smoker Do You Dip or Chew Tobacco: No Second Hand Exposure: No Tobacco Cessation Education Requested by Patient: No Hx Alcohol Use: No Hx Substance Use: No Review of Systems Review of Systems: All systems reviewed & are unremarkable except as noted in HPI & below Physical Exam Physical Exam: Constitutional: Alert, cooperative and in no distress. HEENT: Unremarkable Neck: No jugular venous distention, carotid pulses are normal and equal bilaterally without bruits. Pulmonary: Crackles on auscultation bilaterally. Cardiac: Regular rhythm with no murmur, gallop or rub. Abdomen: Soft, nontender with normal bowel sounds. Extremities: No edema. Distal pulses intact. Neurologic: No focal findings. Gait is steady. Skin: No rash, ecchymoses or petechiae. Results & Data Vital Signs (Past 12 Hours) Vital Signs Temp Pulse Pulse Resp BP Pulse Ox 12/14/18 08:09 68 12/14/18 08:05 92 H 20 90 12/14/18 06:40 36.6 C 89 19 103/52 L 91 12/14/18 04:18 36.6 C 60 18 99/64 L 92 12/13/18 23:07 36.6 C 60 17 91/54 L 93 12/13/18 23:00 60 Diagnostic Findings Her admission electrocardiogram shows atrial flutter with 4-1 AV conduction at a rate of 67 bpm Telemetry: Initially atrial fibrillation, sometime around December 13, 2018 she converted to an AV paced rhythm with some atrial sensing. Normal MVP operation. Pacemaker evaluation: Pending
[2018-12-14] MEDS: ONDANSETRON INJ 2 MG/ML 2 ML VIAL IV PRN ×3 (09:06→21:58)
[2018-12-14 09:07] LABS: BUN Creatinine Ratio 12.4 (10-20); Calcium 8.8 mg/dl (8.5-10.1); Creatinine Clr Calc Pharmacy 24.8 ml/min; Est GFR (African American) 36.4; Est GFR (Non-African American) 31.4; Magnesium 2.5 mg/dl (1.8-2.4); Phosphorus 2.5 mg/dl (2.5-4.9); Potassium 3.7 mmol/L (3.5-5.1)
[2018-12-14] MEDS ORDERED: DIGOXIN 0.25 MG TAB PO ONE ×2 (10:45→14:00)
[2018-12-14] MEDS: VERAPAMIL HCL 180 MG TABCR PO SCH (11:36)
--- NOTE | 2018-12-14 13:55 | Hospitalist Progress Note ---
Date of Service December 14, 2018 Assessment & Plan (1) Atrial fibrillation with RVR: 73 y/o F Hx CVA 2009, HTN, HLD, hypothyroid, SVTs, chronic AF, complete heart block 2015 leading to pacer placement. The pt presented with nonspecific complaint of nausea, diaphoresis, fatigue and an unsteady gait. She had some back pain but denied CP or SOB. She was apparently unable to walk across the room without resting due to fatigue. When she arrived in the ER, rapid AF in the 200BPM range was apparent. She responded to a dose of diltiazem and IV Metoprolol with symptomatic improvement, but her rate remained in the 120s. Initial labs demonstrated mild ALINA and hyponatremia, and were otherwise unremarkable including a normal troponin. Rapid AF - placed on a Diltiazem drip. Received 7.5 mg Metoprolol. Her daily Toprol was increased to 100QD she maintains her verapamil and has been taken off her diltiazem drip. Electrophysiology is seen on 12/14 and is adding digoxin. She is anticoagulated with Pradaxa Full code - Pradaxa dvt prophylaxis (2) Fever: fever without defined source, pending results of urine and blood cultures, Lyme check was negative (3) Hypokalemia: replete, apparently this was issue at recent hospital stay her potassium is remained replete but her sodium is dipped somewhat. 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 Her cardiac rhythm has bounced between sinus paced and A. fib flutter rate is never been spectacularly high but is also not been perfectly controlled. She has seen electrophysiology who will interrogate her pacemaker and her adding digoxin to her verapamil and metoprolol. Her metoprolol is been increased on presentation. Review of Systems Review of Systems: ROS: well nourished well developed. No double vision blurry vision No problems with speech or swallowing No palpitations, chest pain or pressure experiences no palpitations with a rapid rate No Wheezing or breathing issues Occasional right-sided abdominal pain without nausea vomiting or diarrhea No burning urine urine frequency or changes in color No focal joint pain or muscle pain No skin rashes or oral lesions No unusual bruising or bleeding No focused back pain or numbness or loss of strength No changes in memory or confusion Physical Exam Physical Exam: The patient appeared well nourished and normally developed. She is in no distress during my visit Vital signs as documented. Head exam is unremarkable. normocephalic, atraumatic Neck is without jugular venous distension, thyromegaly, or lymphademopathy Lungs are clear to auscultation and percussion. Cardiac exam reveals she is in a rate controlled rhythm there are no overt murmurs Abdominal exam reveals normal bowel sounds, no masses, no organomegaly minor reproducible tenderness in the right mid abdomen not Sierra sign or in an area consistent with renal colic clinically Extremities are nonedematous and both pedal pulses are present Neurologic exam is A&Ox3, no focal deficits, strength is equal bilateral Psychologically seems anxious Skin is warm Dry Results & Data Vital Signs (Past 12 Hours) Vital Signs Temp Pulse Pulse Resp BP Pulse Ox 12/14/18 10:50 68 12/14/18 10:42 37.2 C 60 20 101/64 93 12/14/18 09:10 37.1 C 12/14/18 08:09 68 12/14/18 08:05 92 H 20 90 12/14/18 06:40 36.6 C 89 19 103/52 L 91 12/14/18 04:18 36.6 C 60 18 99/64 L 92 PG Care Time/CCT Total # of Minutes Spent Total Time Spent with Patient: Total time spent is greater than 50% in coordination of care (as documented) at patient's floor/unit and/or counseling patient:
[2018-12-14] MEDS: ACETAMINOPHEN 325 MG TAB PO PRN (13:58)
[2018-12-14] MEDS: GUAIFENESIN/CODEINE 200MG/20MG 10ML UDC PO PRN (14:04)
[2018-12-15] MEDS: ALBUT/IPRATROP 3MG/0.5MG NEB 3 ML VIAL NEB PRN ×3 (04:07→19:02)
[2018-12-15] MEDS ORDERED: FUROSEMIDE 40 MG/4 ML VIAL IV STA (04:33)
[2018-12-15 04:44] LABS: Hematocrit (blood only) 33.4 % (37-47); Hemoglobin 11.6 g/dL (12.0-16.0); Mean Corpuscular Volume 88.4 fL (80-100); Mean Platelet Volume 9.5 fL (7.4-10.4); Platelet Count 257 K/uL (130-400); RDW Coefficient of Variation 14.2 % (11.5-14.5); RDW Standard Deviation 46.2 fL (36.4-46.3); Red Blood Count 3.78 M/uL (4.2-5.4); White Blood Count 13.42 K/uL (4.8-10.8)
[2018-12-15] MEDS ORDERED: FUROSEMIDE 40 MG in SYRINGE 0 ML IV ONE (04:45)
[2018-12-15 04:48] LABS: Mean Corpuscular Hgb Conc 34.7 g/dL (32-36)
--- NOTE | 2018-12-15 04:49 | Progress Note ---
Date of Service December 15, 2018 at about 4:30 am Received a page from the patient's nurse that the patient was having increased shortness of breath and work of breathing throughout the night, including increased oxygen requirements. In brief review of the chart, patient was admitted for A. fib with RVR. Apparently denied shortness of breath on arrival. No mention of respiratory difficulties in last progress note. Presently afebrile, paced at 60 bpm, respiratory rate in the mid 20s with SpO2 92% now on 8 L oxygen via oxygen mask. Patient had a noted three-point hemoglobin drop, worsening hyponatremia, and new ALINA on last labs. Nursing reports overnight she has had decreased urine output as well. 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 On exam, found patient awake, alert, with some increased work of breathing. She says that it is a little harder to breathe but denies any chest pain. Denies any acute worsening overnight. Has noticed some wheezing as well. She says she has had some gagging overnight (which is new) without vomiting. Regular rhythm, lungs have mild diffuse wheezing throughout, and some mild work of breathing. She had just received a DuoNeb before this exam. Patient says it did not help with her breathing. Positive JVD. Portable chest x-ray notes a new right lower lung effusion versus loculation in comparison to x-ray three days prior. [Formal rads read pending.] Discussed case with Dr. Fuentes. We will proceed with following: - Give a single dose of Lasix 40 mg IV. - Check morning labs, including magnesium and albumin levels. - Ordered a transthoracic echocardiogram. - We will monitor her respiratory status. Consider BiPAP if continuing to worsen. Hector Jefferson, PGY3 Overnight call Results & Data Vital Signs (Past 12 Hours) Vital Signs Temp Pulse Pulse Resp BP BP Pulse Ox 12/15/18 04:09 59 L 20 92 12/15/18 03:37 36.8 C 60 28 H 106/66 90 12/15/18 00:00 61 12/14/18 23:34 36.4 C L 61 19 98/62 L 90 12/14/18 20:30 60 12/14/18 18:57 36.5 C 60 17 97/67 L 91
[2018-12-15 05:00] LABS: BUN Creatinine Ratio 14.3 (10-20); Calcium 8.6 mg/dl (8.5-10.1); Creatinine Clr Calc Pharmacy 18.8 ml/min; Est GFR (Non-African American) 22.4; Magnesium 2.3 mg/dl (1.8-2.4); Potassium 4.1 mmol/L (3.5-5.1)
[2018-12-15 05:15] LABS: Basophils # (auto) 0.02 K/uL (0-0.2); Basophils % (auto) 0.1 %; Echinocytes 2+; Immature Granulocytes # (auto) 0.04 K/uL (0.00-0.02); Immature Granulocytes % (auto) 0.3 %; Lymphocytes # (auto) 1.45 K/uL (1.2-3.4); Lymphocytes % (auto) 10.8 %; Monocytes # (auto) 0.34 K/uL (0.11-0.59); Monocytes % (auto) 2.5 %; Neutrophils # (auto) 11.57 K/uL (1.4-6.5); Neutrophils % (auto) 86.3 %
[2018-12-15] MEDS ORDERED: PIPERACILL/TAZOBAC CONSULT ACTIVE PRN (07:00)
[2018-12-15] MEDS ORDERED: PIPERACILLIN/TAZOBACTAM 3.375 GM in DEXTROSE 5% 100 ML IV ONE (07:15)
[2018-12-15] MEDS ORDERED: PERFLUTREN LIPID MICROSPHERE (DEFINITY) IV ONE (07:27)
[2018-12-15] MEDS ORDERED: SODIUM CHLORIDE 0.9% 1000ML 1,000 ML IV SCH (07:30)
--- NOTE | 2018-12-15 07:30 | XRay Report ---
XR chest 1V portable HISTORY: Shortness of breath. COMPARISON: Chest 12/12/2018. FINDINGS: No pneumothorax. The heart is mildly enlarged. This remains unchanged. Left-sided dual-amsoud felicia pacemaker. Mild congestive change persists. Interval development of small bilateral pleural effus ions most pronounced on the right with bibasilar densities. This favors atelectasis from the pleural effusions. A pneumonia could also have a similar appearance. IMPRESSION: Interval development of small bilateral pleural effusions most pronounced on the right with bibasilar densities. Electronically signed by: Jaun Olivares M.D. 12/15/2018 7:29 AM
[2018-12-15] MEDS: LEVOTHYROXINE SODIUM 100 MCG TABLET PO SCH (07:57)
[2018-12-15 08:01] LABS: Allen Test Pos (Pos); Base Excess ABG -4.9 mEq/L (-9-1.8); HCO3 ABG 17 mmol/L (19-24); Oxygen Saturation ABG 93.3 % (90-95); PCO2 ABG 23 mmHg (35-46); PO2 ABG 66 mm/Hg (80-95); pH ABG 7.48 (7.35-7.45)
--- NOTE | 2018-12-15 09:11 | Ultrasound Report ---
RENAL ULTRASOUND HISTORY: acute renal failure COMPARISON: Abdominal ultrasound 03/04/2010. FINDINGS: Right kidney: 9.4 cm. No hydronephrosis. Normal corticomedullary differentiation and cortical thickne ss. Left kidney: 9.4 cm. No hydronephrosis. Normal corticomedullary differentiation and cortical thicknes s. Bladder: No bladder wall thickening. The ureteral jets are not identified this time. Miscellaneous: There is a left pleural effusion. Trace ascites. IMPRESSION: 1. No hydronephrosis. 2. Trace ascites and a left pleural effusion. Electronically signed by: Jaun Olivares M.D. 12/15/2018 9:10 AM
[2018-12-15] MEDS ORDERED: DOXYCYCLINE HYCLATE 100 MG in DEXTROSE 5% 100 ML IV STA (09:33)
[2018-12-15] MEDS: DABIGATRAN ETEXILATE 75 MG CAP PO SCH ×2 (09:54→21:43)
[2018-12-15] MEDS: METOPROLOL SUCC 50MG EXT REL TAB PO SCH (09:54)
[2018-12-15] MEDS: ESCITALOPRAM OXALATE 10 MG TAB PO SCH (09:54)
[2018-12-15] MEDS: VERAPAMIL HCL 180 MG TABCR PO SCH (09:54)
--- NOTE | 2018-12-15 09:59 | Nephrology Consultation ---
Date of Consultation December 15, 2018 Assessment & Plan (1) ALINA (acute kidney injury): -- Non-oliguric -- No emergent indication for HD -- Renal US reviewed -- Baseline creatinine <1 mg/dL -- Clinically consistent with ATN associated with hypotension, AF/RVR -- Medications appropriate for kidney function -- Volume status appears appropriate -- Start NaHCO3 replacement 650 mg Q 8 hours -- Repeat metabolic profile at 3 PM (2) Hyponatremia: -- Volume status acceptable -- Free water restriction to 1.8 L/d -- NaHCO3 replacement -- Monitor metabolic profile twice daily -- SSRI held (3) Acute respiratory distress: -- Clinically suggestive of possible PE but unlikely due to chronic anticoagulation -- R to L shunt chronic -- Possible aspiration, Zosyn added overnight -- non contrast chest CT requested today (4) Atrial fibrillation with RVR: -- Rate controlled -- Anticoagulated with Pradaxa -- Digoxin started yesterday (5) Hypothyroidism: -- TSH 4.1 (6) Pacemaker: - Interrogated yesterday, atrial fibrillation 86% (7) AV block: History of Present Illness Reason for Consultation: ALINA Requesting Physician: Alden Monet MD Attending Physician: Alden Monet MD History of Present Illness Mrs. Vicki Blas is a 73-year-old female with a history of PFO, CVA, hypertension, hyperlipidemia, hypothyroidism, atrial fibrillation, AV block, and prior UTI. She presented with nausea, diaphoresis, fatigue and an unsteady gait. The patient was recently admitted to the hospital in [facility] while on vacation with these symptoms. Vicki reports a progressive decline in appetite and activity tolerance over days to weeks prior to presentation. She notes some subjective chills without fever, mild nausea, and poor appetite within 1-2 days prior to admission. On the day that she was admitted to the hospital, she was experiencing notable weakness in her lower extremities. Evaluation was notable for several electrolyte abnormalities and possible UTI. She was hyponatremic. Initially, this responded to IVF saline and diuretics. The patient left the hospital AMA once her symptoms improved and electrolytes stabilized. 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 Unfortunately, symptoms returned requiring admission to [facility]. Creatinine on admission was normal at 0.9 mg/dL. Hospitalization was complicated by AFib with RVR and hypotension. Creatinine lisa within the first 24 hours to 1.6 mg/dL. She has had progressive recurrent hyponatremia. Today, creatinine was 2.1 mg/dL. The patient remains non-oliguric. Renal US did not demonstrate obstruction. TTE obtained in [place] was reviewed. Heart rate has improved. BP acceptable. Digoxin 0.5 mg provided yesterday. Overnight, acute increasing hypoxia noted. ABG demonstrated respiratory alkalosis with concurrent metabolic acidosis. Allergies Allergy/AdvReac Type Severity Reaction Status Date / Time No Known Allergies Allergy Unverified 12/12/18 11:00 Home Medications Home Medications Medication Instructions Recorded Confirmed Type acetaminophen [Tylenol] 325 mg PO Q6H PRN 12/12/18 12/12/18 History cephalexin 500 mg PO TID 12/12/18 12/12/18 History cholecalciferol (vitamin D3) 2,000 unit PO HS 12/12/18 12/12/18 History [Vitamin D3] dabigatran etexilate [Pradaxa] 150 mg PO BID 12/12/18 12/12/18 History escitalopram oxalate 10 mg PO QAM 12/12/18 12/12/18 History fluticasone propionate [Flonase 2 spray INTRANASAL DAILY PRN 12/12/18 12/12/18 History Allergy Relief] levothyroxine 100 mcg PO QAM 12/12/18 12/12/18 History metoprolol succinate 50 mg PO QAM 12/12/18 12/12/18 History verapamil 360 mg PO QAM 12/12/18 12/12/18 History Patient History Medical History Pacemaker Episode of shaking (Acute) Headache (Acute) Stroke (Resolved) Migraine (Chronic) Atrial fibrillation (Chronic) Complete heart block Episode of shaking (Acute) Family History Other Family history non-contributory Social History Preferred Language: Sinhala Communication Ability: Effective Neurocritical Care Physician Required: No Beliefs That Will Affect Care: None marital status: Current Living Situation: Spouse current occupational status: retired Other Information That Helps Us Care for You: No Feels Safe at Home: Yes Safety Concerns: Feels Safe At This Time Smoking Status: Never smoker Do You Dip or Chew Tobacco: No Second Hand Exposure: No Tobacco Cessation Education Requested by Patient: No Hx Alcohol Use: No Hx Substance Use: No Review of Systems Review of Systems: All systems reviewed & are unremarkable except as noted in HPI & below Physical Exam Constitutional: well developed; no acute distress Eyes: no scleral abnormality and no corneal abnormality ENMT: Mouth: + dry oral mucous membranes; no oral mucosal abnormality Neck: normal visual inspection Thyroid: normal thyroid Respiratory: + labored breathing Auscultation: + wheezes; no crackles Cardiovascular: Rate/Rhythm: + irregularly irregular Heart Sounds: normal S1 and normal S2 Vessels: + JVD Extremities: no edema Gastrointestinal (Abdomen): Inspection/Auscultation: + abdomen distended and normal bowel sounds Percussion/Palpation: + abdomen tender (RUQ mild) Musculoskeletal: Extremities: no cyanosis and no clubbing Skin: no rashes Neurologic: Motor/Sensory: no tremor and no asterixis Results & Data Vital Signs (Past 12 Hours) Vital Signs Temp Pulse Pulse Resp BP BP Pulse Ox 12/15/18 09:52 60 18 94 12/15/18 07:55 37.1 C 60 24 106/64 92 12/15/18 07:15 60 12/15/18 04:09 59 L 20 92 12/15/18 03:37 36.8 C 60 28 H 106/66 90 12/15/18 00:00 61 12/14/18 23:34 36.4 C L 61 19 98/62 L 90 Laboratory Results Laboratory Results - last 24 hr 12/14/18 12/15/18 12/15/18 10:18 04:29 04:29 WBC RBC Hgb Hct MCV MCH MCHC RDW Std Deviation RDW Coeff of Hernan Plt Count MPV Immature Gran % (Auto) Neut % (Auto) Lymph % (Auto) Pepin % (Auto) Eos % (Auto) Baso % (Auto) Immature Gran # (Auto) Neut # (Auto) Lymph # (Auto) Pepin # (Auto) Eos # (Auto) Baso # (Auto) Echinocytes Peripher Smr Path Cons ABG pH ABG pCO2 ABG pO2 ABG HCO3 ABG O2 Saturation ABG Base Excess Darío Test Barometric Pressure Oxygen Given Sodium 125 L Potassium 4.1 Chloride 93 L Carbon Dioxide 20 L Anion Gap 12.0 H BUN 31 H D Creatinine 2.14 H D Est Cr Clr Drug Dosing 18.8 Est GFR ( Amer) 26.0 Est GFR (Non-Af Amer) 22.4 BUN/Creatinine Ratio 14.3 Glucose 126 H Calcium 8.6 Magnesium 2.3 Urine Color Urine Appearance Urine pH Ur Specific [place]ble Urine Protein Urine Glucose (UA) Urine Ketones Urine Blood Urine Nitrite Urine Bilirubin Urine Urobilinogen Ur Leukocyte Esterase Ur Random Sodium 55 Digoxin 1.4 12/15/18 12/15/18 12/15/18 04:29 07:10 07:48 WBC 13.42 H RBC 3.78 L Hgb 11.6 L Hct 33.4 L MCV 88.4 MCH 30.7 MCHC 34.7 RDW Std Deviation 46.2 RDW Coeff of Hernan 14.2 Plt Count 257 MPV 9.5 Immature Gran % (Auto) 0.3 Neut % (Auto) 86.3 Lymph % (Auto) 10.8 Pepin % (Auto) 2.5 Eos % (Auto) 0.0 Baso % (Auto) 0.1 Immature Gran # (Auto) 0.04 H Neut # (Auto) 11.57 H Lymph # (Auto) 1.45 Pepin # (Auto) 0.34 Eos # (Auto) 0.00 Baso # (Auto) 0.02 Echinocytes 2+ Peripher Smr Path Cons ABG pH 7.48 H ABG pCO2 23 L ABG pO2 66 L ABG HCO3 17 L ABG O2 Saturation 93.3 ABG Base Excess -4.9 Darío Test Pos Barometric Pressure 733.8 Oxygen Given 8 L Sodium Potassium Chloride Carbon Dioxide Anion Gap BUN Creatinine Est Cr Clr Drug Dosing Est GFR ( Amer) Est GFR (Non-Af Amer) BUN/Creatinine Ratio Glucose Calcium Magnesium Urine Color Pending Urine Appearance Pending Urine pH Pending Ur Specific [place] Pending Urine Protein Pending Urine Glucose (UA) Pending Urine Ketones Pending Urine Blood Pending Urine Nitrite Pending Urine Bilirubin Pending Urine Urobilinogen Pending Ur Leukocyte Esterase Pending Ur Random Sodium Digoxin
[2018-12-15 10:09] LABS: Appearance Urine Turbid (Clear); Bacteria Urine Automated Negative (Negative); Bilirubin Urine Negative (Negative); Blood Urine Negative (Negative); Color Urine Dark Yellow; Epithelial Cell Urine Auto >30 /lpf (0-5); Glucose Urine UA Negative (Negative); Ketones Urine Trace (Negative); Leukocyte Esterase Urine 1+ (Negative); Nitrite Urine Negative (Negative); Protein Urine 1+ (Negative); RBC Urine Automated 0-4 /hpf (0-4); Specific Gravity Urine 1.022 (1.000-1.030); Urobilinogen Urine Negative (Negative); WBC Urine Automated >30 /hpf (0-5)
[2018-12-15 11:10] LABS: Cast Urine Automated >30 /lpf (0-5)
[2018-12-15] MEDS: SODIUM BICARBONATE 650 MG TAB PO SCH ×3 (11:27→21:44)
[2018-12-15] MEDS ORDERED: NORMOSOL-R 500 ML IV ONE (15:13)
--- NOTE | 2018-12-15 15:18 | Hospitalist Progress Note ---
Date of Service December 15, 2018 Assessment & Plan (1) Fever: 73 y/o F Hx CVA 2009, HTN, HLD, hypothyroid, SVTs, chronic AF, complete heart block 2015 leading to pacer placement. The pt presented with nonspecific complaint of nausea, diaphoresis, fatigue and an unsteady gait. She had some back pain but denied CP or SOB. She was apparently unable to walk across the room without resting due to fatigue. When she arrived in the ER, rapid AF in the 200BPM range was apparent. She responded to a dose of diltiazem and IV Metoprolol with symptomatic improvement, but her rate remained in the 120s. Initial labs demonstrated mild ALINA and hyponatremia, and were otherwise unremarkable including a normal troponin. fever, peripheral smear now with concern for anaplasmosis, negative results of urine and blood cultures, Lyme check was negative Pt started on doxycycline and also zosyn as developed gram negative and/or aspiration pneumonitis with concern for aspiration pneumonia (2) Atrial fibrillation with RVR: Rapid AF - initially placed on a Diltiazem drip. Received 7.5 mg Metoprolol. Her daily Toprol was increased to 100QD she maintains her verapamil and has been taken off her diltiazem drip. Electrophysiology is seen on 12/14 and is adding digoxin. She is anticoagulated with Pradaxa now rate controlled Pt has developed acute kidney injury and thus digoxin dose was one time load Full code - Pradaxa dvt prophylaxis (3) Acute kidney injury: Pt has had progressive elevation of Cr. stable K+ and bicarb, normal renal U/s and nephrology has seen and feels this is ATN from brief hypotension during fever and afib (4) Acute respiratory failure with hypoxia: pt had episode of aspiration of water and now has right lower lobe changes on CXR, CT scan is pending. started on Zosyn due to concern for gram negative and/or aspiration pneumonitis with concern for aspiration pneumonia (5) HTN (hypertension): now with metoprolol at 100mg resume home verapamil (6) History of CVA (cerebrovascular accident): control risk factors, remains on Pradaxa (7) Hypothyroidism: Clinically stable on synthroid Results & Data Vital Signs (Past 12 Hours) Vital Signs Temp Pulse Pulse Resp BP BP Pulse Ox 12/15/18 11:46 37.1 C 61 20 81/57 L 90 12/15/18 09:52 60 18 94 12/15/18 07:55 37.1 C 60 24 106/64 92 12/15/18 07:15 60 12/15/18 04:09 59 L 20 92 12/15/18 03:37 36.8 C 60 28 H 106/66 90 PG Care Time/CCT Total # of Minutes Spent Total Time Spent with Patient: Total time spent is greater than 50% in coordination of care (as documented) at patient's floor/unit and/or counseling patient:
[2018-12-15] MEDS: PIPERACILLIN/TAZOBACTAM 3.375 GM in DEXTROSE 5% 100 ML IV SCH (15:29)
[2018-12-15 15:41] LABS: Albumin Level 2.4 gm/dl (3.4-5.0); BUN Creatinine Ratio 17.9 (10-20); Calcium 8.8 mg/dl (8.5-10.1); Creatinine Clr Calc Pharmacy 23.5 ml/min; Est GFR (African American) 29.8; Est GFR (Non-African American) 25.7; Potassium 4.2 mmol/L (3.5-5.1)
[2018-12-15 15:44] LABS: Albumin Globulin Ratio 0.6 (0.9-2); Bilirubin,Total 0.6 mg/dl (0.2-1); Total Protein 6.4 gm/dl (6.4-8.2)
--- NOTE | 2018-12-15 16:12 | CT Scan Report ---
CT chest wo con CT DOSE: 171.08 mGy.cm CLINICAL HISTORY: 73 years-old Female with acute respiratory distress. Acute respiratory distress TECHNIQUE: Multiaxial CT images of the chest were performed without contrast. A dose lowering techni que was utilized adhering to the principles of ALARA. COMPARISON: Chest radiograph of same day. FINDINGS: Limited study without the use of IV contrast. No focal thyroid nodule. Mildly prominent hilar and sub carinal lymph nodes are seen measuring up to 9 mm. Moderate cardiomegaly with prominently enlarged ri ght atrium. Left subclavian pacer is noted with leads overlying the right atrium and right ventricle. No pericardial effusion. No thoracic aortic aneurysm. Calcified plaque of the thoracic aortic arch. Small bilateral pleural effusions are noted with bibasilar consolidative opacities. Limited study sec ondary to respiratory motion. No pneumothorax. No significant intralobular septal thickening to sugge st pulmonary edema. No suspicious pulmonary nodules or masses. 2 mm solid nodule of the apical segmen t right upper lobe, image 51 series 4 is indeterminate and likely benign. Central airways appear to b e patent. Mild nonspecific stranding about the upper abdomen. Trace perihepatic ascites. Fluid distended distal esophagus. Soft tissues and breast parenchyma appear unremarkable. Degenerative changes are seen abo ut the shoulders and spine. No suspicious bone lesions. IMPRESSION: 1. Motion degraded exam. 2. Cardiomegaly without overt pulmonary edema. 3. Small pleural effusions with bibasilar dependent consolidative and groundglass densities suggestiv e of atelectasis or pneumonitis. 4. Prominent mediastinal and hilar lymph nodes, likely reactive. 5. Trace upper abdominal ascites with mild nonspecific stranding of the upper abdomen, partially imag ed. Electronically signed by: Demetrius Nesbitt M.D. 12/15/2018 4:10 PM
[2018-12-15] MEDS: LORazepam 0.5 MG/1 ML VIAL IV PRN (17:17)
[2018-12-15] MEDS: DOXYCYCLINE HYCLATE 100 MG in DEXTROSE 5% 100 ML IV SCH (21:43)
[2018-12-16] MEDS: PIPERACILLIN/TAZOBACTAM 3.375 GM in DEXTROSE 5% 100 ML IV SCH ×3 (03:24→18:29)
[2018-12-16] MEDS: LEVOTHYROXINE SODIUM 100 MCG TABLET PO SCH (06:17)
[2018-12-16] MEDS: SODIUM BICARBONATE 650 MG TAB PO SCH ×3 (06:17→21:02)
[2018-12-16 06:26] LABS: Hemoglobin 9.9 g/dL (12.0-16.0); Mean Corpuscular Hgb Conc 35.4 g/dL (32-36); Mean Corpuscular Volume 86.4 fL (80-100); Mean Platelet Volume 9.6 fL (7.4-10.4); Platelet Count 231 K/uL (130-400); RDW Coefficient of Variation 13.8 % (11.5-14.5); RDW Standard Deviation 44.1 fL (36.4-46.3); Red Blood Count 3.24 M/uL (4.2-5.4); White Blood Count 8.15 K/uL (4.8-10.8)
[2018-12-16 06:55] LABS: Albumin Level 2.3 gm/dl (3.4-5.0); BUN Creatinine Ratio 21.3 (10-20); Calcium 8.2 mg/dl (8.5-10.1); Creatinine Clr Calc Pharmacy 30.1 ml/min; Est GFR (African American) 39.9; Est GFR (Non-African American) 34.4; Potassium 3.6 mmol/L (3.5-5.1)
[2018-12-16] MEDS: ALBUT/IPRATROP 3MG/0.5MG NEB 3 ML VIAL NEB PRN (06:59)
[2018-12-16] MEDS: DOXYCYCLINE HYCLATE 100 MG in DEXTROSE 5% 100 ML IV SCH ×2 (08:21→22:40)
[2018-12-16] MEDS: DABIGATRAN ETEXILATE 75 MG CAP PO SCH ×2 (08:23→21:02)
[2018-12-16] MEDS: VERAPAMIL HCL 180 MG TABCR PO SCH (08:23)
[2018-12-16] MEDS: ESCITALOPRAM OXALATE 10 MG TAB PO SCH (08:24)
[2018-12-16] MEDS: METOPROLOL SUCC 50MG EXT REL TAB PO SCH (08:24)
--- NOTE | 2018-12-16 08:27 | Cardiology Progress Note ---
Date of Service December 16, 2018 Assessment & Plan (1) Atrial fibrillation with RVR: She has a long history of atrial fibrillation and although the heart rates have been somewhat elevated in general they have been reasonable. She now presents with a very rapid heart rate on the same medications she has been on. I suspect the increase in heart rate was due to high catecholamines. I agree that we need better rate control when she is in atrial fibrillation, now she is on an increase her AV jason blockers. Specifically her Toprol has been increased and I added a loading dose of digoxin (level 1.4 yesterday). This and treating her underlying condition has controlled her heart rate well. Her blood pressure is borderline and somewhat low at times. The advantage of digoxin as it may not slow her heart rate therefore my inclination is to continue digoxin and decrease her metoprolol back to her outpatient dose. I am going to do that now that she is on telemetry and we can follow her rhythm. (2) Pacemaker: Pacemaker interrogation shows normal pacemaker function, her unusual pattern on telemetry was MVP mode. She is in atrial fibrillation most, but not all, of the time. Overall rate control since last interrogation is adequate although a little bit elevated and further rate control may be prudent over the long run. (3) AV block: She has a history of heart block, at times however she is conducting and the pacemaker can accommodate that. It gives an unusual look on telemetry but is normal function. (4) Right ventricular dilation: On her echocardiogram yesterday she has right ventricular dilatation but her pressures are not elevated. She does have severe TR. This may be acute related to her pulmonary presentation, in any case there is no indication for further evaluation or treatment but we can follow this as an outpatient to see if it resolves. Subjective She is feeling better, she is still on oxygen and still has some shortness of breath and has not been out of bed. She does not have any cardiovascular symptoms, she is not a palpitations or chest discomfort. She is tolerating her increasing medications well. Physical Exam Physical Exam: Constitutional: Alert, cooperative and in no distress. Pulmonary: Expiratory wheezing on auscultation bilaterally. Cardiac: Regular rhythm with no murmur, gallop or rub. Abdomen: Soft, nontender with normal bowel sounds. Extremities: No edema. Skin: No rash, ecchymoses or petechiae. Results & Data Vital Signs (Past 12 Hours) Vital Signs Temp Pulse Pulse Resp BP BP Pulse Ox 12/16/18 07:04 60 20 97 12/16/18 06:59 36.7 C 60 18 97/57 L 97 12/16/18 04:54 60 20 94 12/16/18 03:07 36.5 C 63 22 105/65 93 12/16/18 01:47 62 18 89 L 12/16/18 00:00 60 12/15/18 23:20 36.6 C 60 23 91/48 L 93 12/15/18 22:54 60 20 91 12/15/18 20:45 60 Diagnostic Findings Telemetry: Ventricular pacing, no further rapid heart rates. Echocardiogram: Normal LV function, suggestion of acute right ventricular overload without elevated pressures.
[2018-12-16] MEDS ORDERED: POTASSIUM CHLORIDE 10 MEQ TABCR PO STA (09:03)
--- NOTE | 2018-12-16 09:45 | Nephrology Progress Note ---
Date of Service December 16, 2018 Assessment & Plan (1) ALINA (acute kidney injury): -- Non-oliguric -- Renal US did not demonstrate evidence of obstruction -- Creatinine improving with supportive care -- Baseline creatinine <1 mg/dL -- Clinically consistent with ATN associated with hypotension, AF/RVR -- Medications appropriate for kidney function -- Volume status appears euvolemic -- Continue NaHCO3 replacement 650 mg Q 8 hours -- Repeat metabolic profile at 3 PM (2) Hyponatremia: -- Volume status acceptable -- Free water restriction to 1.8 L/d -- Continue NaHCO3 replacement for now -- Monitor metabolic profile twice daily -- SSRI held (3) Acute respiratory distress: -- Clinically suggestive of possible PE but unlikely due to chronic anticoagulation -- R to L shunt chronic -- Cardiology consult reviewed, TTE notable for TR but normal right sided pressures -- Possible aspiration, bibasilar pneumonitis noted on CT chest yesterday, Zosyn was added -- Doxy added yesterday for possible anaplasmosis (4) Atrial fibrillation with RVR: -- Rate controlled -- Anticoagulated with Pradaxa -- Digoxin aded (5) Hypothyroidism: -- TSH 4.1 (6) Pacemaker: (7) AV block: Subjective No acute events overnight. Overall feeling improved today. Continues to have notable oxygen requirement. She denies significant dyspnea at rest. No fevers or chills overnight. Denies significant orthopnea. No chest pain or palpitations. Peripheral smear demonstrated intracellular inclusions suggesting possible anaplasmosis. Review of Systems Review of Systems: All systems reviewed & are unremarkable except as noted in HPI & below Physical Exam Constitutional: well developed; no acute distress Eyes: no scleral abnormality and no corneal abnormality ENMT: Mouth: + dry oral mucous membranes; no oral mucosal abnormality Neck: normal visual inspection Thyroid: normal thyroid Respiratory: + labored breathing Auscultation: + wheezes; no crackles Cardiovascular: Rate/Rhythm: + irregularly irregular Heart Sounds: normal S1 and normal S2 Vessels: + JVD Extremities: no edema Gastrointestinal (Abdomen): Inspection/Auscultation: + abdomen distended and normal bowel sounds Percussion/Palpation: + abdomen tender (RUQ mild) Musculoskeletal: Extremities: no cyanosis and no clubbing Skin: no rashes Neurologic: Motor/Sensory: no tremor and no asterixis Results & Data Vital Signs (Past 12 Hours) Vital Signs Temp Pulse Pulse Resp BP BP Pulse Ox 12/16/18 08:24 60 18 115/70 93 12/16/18 08:00 60 12/16/18 07:04 60 20 97 12/16/18 06:59 36.7 C 60 18 97/57 L 97 12/16/18 04:54 60 20 94 12/16/18 03:07 36.5 C 63 22 105/65 93 12/16/18 01:47 62 18 89 L 12/16/18 00:00 60 12/15/18 23:20 36.6 C 60 23 91/48 L 93 12/15/18 22:54 60 20 91 Laboratory Results Laboratory Results - last 24 hr 12/15/18 12/15/18 12/15/18 07:10 15:14 15:39 WBC RBC Hgb Hct MCV MCH MCHC RDW Std Deviation RDW Coeff of Hernan Plt Count MPV Sodium 124 L Potassium 4.2 Chloride 93 L Carbon Dioxide 19 L Anion Gap 12.0 H BUN 34 H Creatinine 1.91 H Est Cr Clr Drug Dosing 23.5 Est GFR ( Amer) 29.8 Est GFR (Non-Af Amer) 25.7 BUN/Creatinine Ratio 17.9 Glucose 130 H Lactate 2.4 H* Calcium 8.8 Total Bilirubin 0.6 AST 37 ALT 44 Alkaline Phosphatase 93 Total Protein 6.4 Albumin 2.4 L Globulin 4.0 Albumin/Globulin Ratio 0.6 L Urine Color Dark Yellow Urine Appearance Turbid A Urine pH 5.0 Ur Specific [place] 1.022 Urine Protein 1+ H Urine Glucose (UA) Negative Urine Ketones Trace H Urine Blood Negative Urine Nitrite Negative Urine Bilirubin Negative Urine Urobilinogen Negative Ur Leukocyte Esterase 1+ H Urine WBC (Auto) >30 H Urine RBC (Auto) 0-4 U Hyaline Cast (Auto) >30 H U Epithel Cells (Auto) >30 H Urine Bacteria (Auto) Negative Ur Renal Epithelial Cell Not Reportable Granular Casts 1-5 H Urine Yeast Budding A 12/16/18 12/16/18 06:02 06:02 WBC 8.15 RBC 3.24 L Hgb 9.9 L Hct 28.0 L MCV 86.4 MCH 30.6 MCHC 35.4 RDW Std Deviation 44.1 RDW Coeff of Hernan 13.8 Plt Count 231 MPV 9.6 Sodium 125 L Potassium 3.6 Chloride 93 L Carbon Dioxide 21 Anion Gap 11.0 BUN 32 H Creatinine 1.50 H D Est Cr Clr Drug Dosing 30.1 Est GFR ( Amer) 39.9 Est GFR (Non-Af Amer) 34.4 BUN/Creatinine Ratio 21.3 H Glucose 84 Lactate Calcium 8.2 L Total Bilirubin AST ALT Alkaline Phosphatase Total Protein Albumin 2.3 L Globulin Albumin/Globulin Ratio Urine Color Urine Appearance Urine pH Ur Specific [place] Urine Protein Urine Glucose (UA) Urine Ketones Urine Blood Urine Nitrite Urine Bilirubin Urine Urobilinogen Ur Leukocyte Esterase Urine WBC (Auto) Urine RBC (Auto) U Hyaline Cast (Auto) U Epithel Cells (Auto) Urine Bacteria (Auto) Ur Renal Epithelial Cell Granular Casts Urine Yeast
[2018-12-16 15:30] LABS: Albumin Level 2.4 gm/dl (3.4-5.0); BUN Creatinine Ratio 18.9 (10-20); Calcium 8.5 mg/dl (8.5-10.1); Creatinine Clr Calc Pharmacy 28.6 ml/min; Est GFR (African American) 37.5; Est GFR (Non-African American) 32.3; Phosphorus 2.4 mg/dl (2.5-4.9); Potassium 3.5 mmol/L (3.5-5.1)
--- NOTE | 2018-12-16 16:20 | Consultation Report ---
DATE OF CONSULTATION: 12/16/2018 PULMONARY MEDICINE CONSULTATION REASON FOR CONSULTATION: Dyspnea/hypoxemia. HISTORY OF PRESENT ILLNESS: A 73-year-old white female with past history of CVA in 2010, hypertension, hypothyroidism, chronic atrial fibrillation with bouts of supraventricular tachycardia and complete heart block in 2016 leading to pacemaker implantation, was admitted onto the hospitalist service on 12/12 with diaphoresis, nausea, vomiting and unsteady gait as well as weakness. She denied chest pain, but she was unable to walk across the room without resting due to fatigue. She was brought to the Emergency Room and found to be in atrial fibrillation with a rapid ventricular response as well as hyponatremic. She was given a dose of IV diltiazem and IV metoprolol with a rate coming down into the 120s. She also demonstrated a mild ALINA and had a normal troponin level. She was placed on IV diltiazem drip and she has been chronically anticoagulated with Pradaxa. Her metoprolol dose was adjusted. She has a negative smoking history, but her father did of lung disease, possibly COPD and had silicosis/occupational lung disease. There was significant secondary exposure. Chest x-ray showed no acute infiltrate on admission. She was admitted on to Dr. Monet's service. Dr. Trent was consulted on 12/14 who was familiar with her history. He wanted to place her back on outpatient verapamil at 360 mg daily and metoprolol 100 mg daily and interrogated the pacemaker, which was functioning properly. Her tachyarrhythmias began in 07/1999. She has a patent foramen ovale with right to left shunting, mild atherosclerosis involving the carotids without occlusive disease. She had a syncopal episode in 2016. She was started on Multaq in the summer of 2016, which was not very effective in controlling her arrhythmia and because of side effects, was discontinued. She presented with a febrile illness and rapid ventricular response and was initially seen at [facility] in [place] where they were vacationing and once again started on intravenous diltiazem. Echocardiogram showed normal LV function. She was discharged and then readmitted here, found to be in atrial flutter with a 4:1 AV conduction at a rate of 67. She has been evaluated by Dr. Miguel Bhatt from nephrology who felt that her ATN was associated with hypotension, AF/RVR and restricted her free water to 1.8 liters daily. There was a question of aspiration with right lower lobe infiltrate and she was started on IV Zosyn and I have been asked to see the patient in consultation. She states she is unable to produce phlegm. She has had no pleuritic pain or hemoptysis, but has been dyspneic with modest exertion. Echo has shown acute right ventricular overload with elevated PA pressures with an LVEF estimated at 65% and the RV was mildly dilated with PA pressures, with [id number] TR, but normal estimated pulmonary arterial systolic pressure. Chest CT done on 12/15 without the use of IV contrast. Cardiomegaly without overt pulmonary edema was seen. Small pleural effusions with bibasilar dependent consolidative and ground-glass densities very suggestive of atelectasis versus pneumonitis. Prominent mediastinal and hilar lymphadenopathy and a suggestion of abdominal ascites. Outside CT scan done of the head at the [facility] showed no acute abnormality. LABORATORIES: H and H 9.9 and 28, white count 8100. ABGs on 8 liters on 12/15/2018; pH 7.48, pCO2 23, pO2 66. Sodium 125, creatinine 1.5. Blood cultures negative. Urine culture negative. OVERALL ASSESSMENT AND PLAN: A 73-year-old with chronic atrial fibrillation, pacemaker insertion, acute tubular necrosis with hyponatremia and admitted with a febrile illness(presumably secondary to Aasplasmosis) with a suggestion of pulmonary hypertension, right ventricular overload and a history of a patent foramen ovale with right to left intrapulmonic shunting. The chest CT scan obtained without contrast really shows a small right pleural effusion with a right lower lobe infiltrate and a suggestion of atelectasis. Certainly aspiration pneumonia cannot be ruled out in this patient.The degree of hypoxemia requiring high flow O2 supplementation is surprising and no doubt the R to L shunting is problematic with the acute febrile illness playing a contributing role.May need a R heart catheterization down the road. At this point in time, I agree with current treatment including pulmonary toilet and the use of aerosolized bronchodilator, IV antibiotic in the form of Zosyn and the patient is also on IV doxycycline and has received 1 dose of IV Lasix. At this point in time, I would continue to follow and look for clearance of that infiltrate and resolution of the right pleural effusion as well as monitoring the patient's temperature and febrile response to treatment. We will follow along with you. Thank you very much for this consultation. No intervention or workup is planned at this point in time. BIJUD
--- NOTE | 2018-12-16 16:30 | Hospitalist Progress Note ---
Date of Service December 16, 2018 Assessment & Plan (1) Fever: 73 y/o F Hx CVA 2009, HTN, HLD, hypothyroid, SVTs, chronic AF, complete heart block 2015 leading to pacer placement. The pt presented with nonspecific complaint of nausea, diaphoresis, fatigue and an unsteady gait. She had some back pain but denied CP or SOB. She was apparently unable to walk across the room without resting due to fatigue. When she arrived in the ER, rapid AF in the 200BPM range was apparent. She responded to a dose of diltiazem and IV Metoprolol with symptomatic improvement, but her rate remained in the 120s. Initial labs demonstrated mild ALINA and hyponatremia, and were otherwise unremarkable including a normal troponin. fever, peripheral smear now with concern for anaplasmosis, negative results of urine and blood cultures, Lyme check was negative Pt started on doxycycline and also zosyn as developed gram negative and/or aspiration pneumonitis with concern for aspiration pneumonia (2) Atrial fibrillation with RVR: Rapid AF - initially placed on a Diltiazem drip. Received 7.5 mg Metoprolol. Her daily Toprol was increased to 100QD she maintains her verapamil and has been taken off her diltiazem drip. Electrophysiology is seen on 12/14 and added digoxin. She is anticoagulated with Pradaxa now rate controlled Pt has developed acute kidney injury and thus digoxin dose was reduced to 0.125 daily Full code - Pradaxa dvt prophylaxis (3) Acute kidney injury: Pt has had progressive elevation of Cr. stable K+ and bicarb, normal renal U/s and nephrology has seen and feels this is ATN Patient has had gradual improvement of her creatinine since the event associate with hypotension, however not at baseline (4) Acute respiratory failure with hypoxia: pt had episode of aspiration of water and now has right lower lobe changes on CXR, CT scan is pending. started on Zosyn due to concern for gram negative and/or aspiration pneumonitis with concern for aspiration pneumonia patient has required high flow oxygen to combat this respiratory failure (5) HTN (hypertension): now with metoprolol at 100mg plus home verapamil 360 mg a day (6) History of CVA (cerebrovascular accident): control risk factors, remains on Pradaxa (7) Hypothyroidism: Clinically stable on synthroid Subjective To good spirits she remains on high flow oxygen she is only a little cough she said no episodes of aspiration remains on dual antibiotic treatment 1 for aspiration pneumonia 1 for her anaplasmosis. Her atrial fibrillation is been in good control Review of Systems Review of Systems: ROS: She has fatigue and mild uncomfortable distress No double vision blurry vision No problems with speech or swallowing No palpitations, chest pain or pressure She feels dyspneic and has a mild nonproductive cough No abdominal pain nausea vomiting diarrhea changes in appetite or weight No burning urine urine frequency or changes in color No focal joint pain or muscle pain No skin rashes or oral lesions No unusual bruising or bleeding No focused back pain or numbness or loss of strength No changes in memory or confusion Physical Exam Physical Exam: The patient appeared well nourished and normally developed. She is in mild to moderate distress Vital signs as documented. Head exam is unremarkable. normocephalic, atraumatic Neck is without jugular venous distension, thyromegaly, or lymphademopathy Lungs are with bibasilar coarse rhonchi right greater than left Cardiac exam reveals irregular but rate controlled no murmurs Abdominal exam reveals normal bowel sounds, no masses, no organomegaly Extremities are nonedematous and both pedal pulses are present Neurologic exam is A&Ox3, no focal deficits, strength is equal bilateral Psychologically seems neither anxious or depressed Skin is warm Dry without rashes Results & Data Vital Signs (Past 12 Hours) Vital Signs Temp Pulse Pulse Resp BP Pulse Ox 12/16/18 15:39 36.6 C 60 18 91/59 L 96 12/16/18 15:03 60 60 20 91 12/16/18 11:36 36.5 C 59 L 18 94/59 L 93 12/16/18 11:05 60 18 91 12/16/18 08:24 60 18 115/70 93 12/16/18 08:00 60 12/16/18 07:04 60 20 97 12/16/18 06:59 36.7 C 60 18 97/57 L 97 12/16/18 04:54 60 20 94 PG Care Time/CCT Total # of Minutes Spent Total Time Spent with Patient: Total time spent is greater than 50% in coordination of care (as documented) at patient's floor/unit and/or counseling patient:
[2018-12-16] MEDS: DIGOXIN 0.125 MG TAB PO SCH (17:13)
[2018-12-16] MEDS: ACETAMINOPHEN 325 MG TAB PO PRN (19:50)
[2018-12-16] MEDS: LORazepam 0.5 MG/1 ML VIAL IV PRN (21:48)
[2018-12-17] MEDS: PIPERACILLIN/TAZOBACTAM 3.375 GM in DEXTROSE 5% 100 ML IV SCH ×3 (04:46→19:52)
[2018-12-17] MEDS: SODIUM BICARBONATE 650 MG TAB PO SCH ×3 (04:52→19:53)
[2018-12-17] MEDS: LEVOTHYROXINE SODIUM 100 MCG TABLET PO SCH (04:53)
[2018-12-17 07:13] LABS: BUN Creatinine Ratio 21.4 (10-20); Calcium 8.8 mg/dl (8.5-10.1); Creatinine Clr Calc Pharmacy 34.5 ml/min; Est GFR (African American) 47.9; Est GFR (Non-African American) 41.3; Potassium 3.5 mmol/L (3.5-5.1)
--- NOTE | 2018-12-17 08:57 | Nuclear Medicine Report ---
NM pul vent and perfuse CLINICAL HISTORY: Abnormal chest x-ray. Fatigue. Aspiration. . COMPARISON STUDY: Chest CT and chest x-ray 12/15/2018 TECHNIQUE: Immediately following the inhalation of 33 mCi of technetium 99 M DTPA for the ventilation scan and the intravenous administration of 5.4 mCi of technetium 99 M MAA for the perfusion scan, an terior, oblique, lateral, and posterior views of the chest were obtained. FINDINGS: Prominence of the cardiac silhouette. No segmental or mismatched filling defects within the lungs. IMPRESSION: Above findings consistent with a very low probability scan. Electronically signed by: Jaun Olivares M.D. 12/17/2018 8:56 AM
[2018-12-17] MEDS ORDERED: METOPROLOL SUCC 50MG EXT REL TAB PO SCH (09:00)
--- NOTE | 2018-12-17 09:26 | Nephrology Progress Note ---
Date of Service December 17, 2018 Assessment & Plan (1) ALINA (acute kidney injury): -- Non-oliguric -- Renal US did not demonstrate evidence of obstruction -- Creatinine improving with supportive care -- Baseline creatinine <1 mg/dL -- Clinically consistent with ATN associated with hypotension, AF/RVR -- Medications appropriate for kidney function -- Volume status acceptable -- Continue NaHCO3 replacement 650 mg Q 8 hours -- Repeat metabolic profile tomorrow AM (2) Hyponatremia: -- Volume status acceptable -- Free water restriction to 1.8 L/d -- Continue NaHCO3 replacement for now -- Monitor metabolic profile twice daily -- Advance diet as tolerated (3) Acute respiratory distress: -- Pulm consult reviewed this morning -- R to L shunt chronic -- Cardiology consult reviewed, TTE notable for TR but normal right sided pressures -- Possible aspiration, bibasilar pneumonitis noted on CT chest, remains on Zosyn -- Doxy added for possible anaplasmosis (4) Atrial fibrillation with RVR: -- Rate controlled -- Anticoagulated with Pradaxa -- Digoxin added during admission (5) Hypothyroidism: -- TSH 4.1 (6) Pacemaker: (7) AV block: Subjective No acute events overnight. Returned from [employer] this morning. Dyspnea improved. O2 is being weaned. No fevers or chills. No chest pain or palpitations. Appetite improving. Mild intermittent nausea persists. Tolerating liquid diet. No other GI symptoms at this time. Review of Systems Review of Systems: All systems reviewed & are unremarkable except as noted in HPI & below Physical Exam Constitutional: well developed; no acute distress Eyes: no scleral abnormality and no corneal abnormality ENMT: Mouth: + dry oral mucous membranes; no oral mucosal abnormality Neck: normal visual inspection Thyroid: normal thyroid Respiratory: + labored breathing Auscultation: + wheezes; no crackles Cardiovascular: Rate/Rhythm: + irregularly irregular Heart Sounds: normal S1 and normal S2 Vessels: + JVD Extremities: no edema Gastrointestinal (Abdomen): Inspection/Auscultation: + abdomen distended and normal bowel sounds Percussion/Palpation: + abdomen tender (RUQ mild) Musculoskeletal: Extremities: no cyanosis and no clubbing Skin: no rashes Neurologic: Motor/Sensory: no tremor and no asterixis Results & Data Vital Signs (Past 12 Hours) Vital Signs Temp Pulse Resp BP Pulse Ox 12/17/18 07:35 36.6 C 60 17 110/66 93 12/17/18 06:57 68 18 97 12/17/18 04:30 36.5 C 59 L 16 97/63 L 92 12/17/18 04:05 67 20 93 12/17/18 00:03 36.5 C 23 95 12/16/18 23:19 66 18 94 Laboratory Results Laboratory Results - last 24 hr 12/16/18 12/17/18 14:57 06:13 Sodium 124 L 127 L Potassium 3.5 3.5 Chloride 91 L 93 L Carbon Dioxide 24 26 Anion Gap 9.0 9.0 BUN 30 H 28 H Creatinine 1.58 H 1.29 H Est Cr Clr Drug Dosing 28.6 34.5 Est GFR ( Amer) 37.5 47.9 Est GFR (Non-Af Amer) 32.3 41.3 BUN/Creatinine Ratio 18.9 21.4 H Glucose 108 H 79 Calcium 8.5 8.8 Phosphorus 2.4 L Albumin 2.4 L
[2018-12-17] MEDS: DOXYCYCLINE HYCLATE 100 MG in DEXTROSE 5% 100 ML IV SCH ×2 (09:30→23:53)
--- NOTE | 2018-12-17 09:33 | Cardiology Progress Note ---
Date of Service December 17, 2018 Assessment & Plan (1) Atrial fibrillation with RVR: She has a long history of atrial fibrillation and although the heart rates have been somewhat elevated in general they have been reasonable. She now presents with a very rapid heart rate on the same medications she has been on. I suspect the increase in heart rate was due to high catecholamines. I agree that we need better rate control when she is in atrial fibrillation, now she is on an increase her AV jason blockers. Specifically I added a loading dose of digoxin (level 1.4) with a daily dose starting December 16, 2018. This and treating her underlying condition has controlled her heart rate very well. Her blood pressure is borderline and somewhat low at times. The advantage of digoxin as it may not lower her blood pressure therefore my inclination is to continue digoxin and perhaps we can discontinue metoprolol. I am going to do that now that she is on telemetry and we can follow her rhythm. If she goes home we can also follow her heart rate with her pacemaker monitoring. (2) Pacemaker: Pacemaker interrogation shows normal pacemaker function, her unusual pattern on telemetry was MVP mode. She is in atrial fibrillation most, but not all, of the time. Overall rate control since last interrogation is adequate although a little bit elevated and further rate control may be prudent over the long run. (3) AV block: She has a history of heart block, at times however she is conducting and the pacemaker can accommodate that. It gives an unusual look on telemetry but is normal function. (4) Right ventricular dilation: On her echocardiogram this visit she has right ventricular dilatation but her pressures are not elevated. She does have severe TR. This may be acute related to her pulmonary presentation, possibly due to volume overload, in any case there is no indication for further evaluation or treatment now but we can follow this as an outpatient to see if it resolves. Subjective She looks better today and evidently is feeling better as well. Less shortness of breath. No cardiovascular symptoms. Physical Exam Physical Exam: Constitutional: Alert, cooperative and in no distress. Pulmonary: Clear to auscultation bilaterally. Cardiac: Regular rhythm with no murmur, gallop or rub. Abdomen: Soft, nontender with normal bowel sounds. Extremities: No edema. Skin: No rash, ecchymoses or petechiae. Results & Data Vital Signs (Past 12 Hours) Vital Signs Temp Pulse Resp BP Pulse Ox 07/12/19 07:35 36.6 C 60 17 110/66 93 12/17/18 06:57 68 18 97 12/17/18 04:30 36.5 C 59 L 16 97/63 L 92 12/17/18 04:05 67 20 93 12/17/18 00:03 36.5 C 23 95 12/16/18 23:19 66 18 94 Diagnostic Findings Telemetry: Pacing in the 60s for the most part, only rare conduction. Underlying rhythm is for the most part atrial fibrillation.
[2018-12-17] MEDS: DABIGATRAN ETEXILATE 75 MG CAP PO SCH ×2 (10:09→19:53)
[2018-12-17] MEDS: VERAPAMIL HCL 180 MG TABCR PO SCH (10:10)
[2018-12-17] MEDS: ESCITALOPRAM OXALATE 10 MG TAB PO SCH (10:10)
--- NOTE | 2018-12-17 14:16 | Hospitalist Progress Note ---
Date of Service December 17, 2018 Assessment & Plan (1) Fever: 73 y/o F Hx CVA 2009, HTN, HLD, hypothyroid, SVTs, chronic AF, complete heart block 2015 leading to pacer placement. The pt presented with nonspecific complaint of nausea, diaphoresis, fatigue and an unsteady gait. She had some back pain but denied CP or SOB. She was apparently unable to walk across the room without resting due to fatigue. When she arrived in the ER, rapid AF in the 200BPM range was apparent. She responded to a dose of diltiazem and IV Metoprolol with symptomatic improvement, but her rate remained in the 120s. Initial labs demonstrated mild ALINA and hyponatremia, and were otherwise unremarkable including a normal troponin. fever, peripheral smear now with concern for anaplasmosis, negative results of urine and blood cultures, Lyme check was negative Pt started on doxycycline and also zosyn as developed gram negative and/or aspiration pneumonitis with concern for aspiration pneumonia patient is in no additional fever since the addition of treatment for anaplasmosis (2) Atrial fibrillation with RVR: Rapid AF - initially placed on a Diltiazem drip. Received 7.5 mg Metoprolol. Her daily Toprol was increased to 100QD she maintains her verapamil and has been taken off her diltiazem drip. Electrophysiology is seen on 12/14 and added digoxin. She is anticoagulated with Pradaxa now rate controlled Pt has developed acute kidney injury and thus digoxin dose was reduced to 0.125 daily Full code - Pradaxa dvt prophylaxis (3) Acute kidney injury: Patient had chronic daily improvement of her creatinine, previously she has had normal renal U/s and nephrology has seen and feels this is ATN Patient has had gradual improvement of her creatinine since the event associate with hypotension, however not at baseline but trending downward nicely (4) Acute respiratory failure with hypoxia: pt had episode of aspiration of water and now has right lower lobe changes on CXR, CT scan is pending. started on Zosyn due to concern for gram negative and/or aspiration pneumonitis with concern for aspiration pneumonia patient has been able to be weaned off high flow There is some mention of a right to left shunt in the chart on her echo this does not seem to be the case this might be typographical airoxygen. (5) HTN (hypertension): now with metoprolol at 100mg plus home verapamil 360 mg a day (6) History of CVA (cerebrovascular accident): control risk factors, remains on Pradaxa (7) Hypothyroidism: Clinically stable on synthroid (8) Insomnia: Will try 1 dose of Seroquel at bedtime to see if it improves her sleep Subjective Patient feels somewhat improved today she did have a poor night sleep she is off high flow oxygen to nasal cannula she is able to eat her clear liquid diet and will progress to more soft bite sized diet. Pulmonary medicine has no new interventions regarding her hypoxia Review of Systems Review of Systems: ROS: Fatigued and in mild distress No double vision blurry vision No problems with speech or swallowing No palpitations, chest pain or pressure Shortness of breath and dyspnea on exertion No abdominal pain nausea vomiting diarrhea changes in appetite or weight No burning urine or changes in color No focal joint pain or muscle pain No skin rashes or oral lesions No unusual bruising or bleeding No focused back pain or numbness or loss of strength No changes in memory or confusion Physical Exam Physical Exam: The patient appeared well nourished and in mild to moderate distress Vital signs as documented. Head exam is unremarkable. normocephalic, atraumatic Neck is without jugular venous distension, thyromegaly, or lymphademopathy Lungs are coarse bilaterally with rales at the bases which is more consistent with atelectasis Cardiac exam reveals Rhythm is regular. Rate is been controlled Abdominal exam reveals normal bowel sounds, no masses, no organomegaly Extremities are nonedematous and both pedal pulses are present Neurologic exam is A&Ox3, no focal deficits, strength is equal bilateral Psychologically seems depressed Skin is warm Dry Results & Data Vital Signs (Past 12 Hours) Vital Signs Temp Pulse Resp BP BP Pulse Ox 12/17/18 11:02 36.5 C 73 18 104/66 98 12/17/18 07:35 36.6 C 60 17 110/66 93 12/17/18 06:57 68 18 97 12/17/18 04:30 36.5 C 59 L 16 97/63 L 92 12/17/18 04:05 67 20 93 PG Care Time/CCT Total # of Minutes Spent Total Time Spent with Patient: Total time spent is greater than 50% in coordination of care (as documented) at patient's floor/unit and/or counseling patient:
[2018-12-17] MEDS: DIGOXIN 0.125 MG TAB PO SCH (16:01)
[2018-12-17] MEDS ORDERED: QUETIAPINE FUMARATE 25 MG TABLET PO SCH (21:00)
[2018-12-18] MEDS: PIPERACILLIN/TAZOBACTAM 3.375 GM in DEXTROSE 5% 100 ML IV SCH ×2 (02:10→11:08)
[2018-12-18] MEDS: LEVOTHYROXINE SODIUM 100 MCG TABLET PO SCH (06:34)
[2018-12-18] MEDS: SODIUM BICARBONATE 650 MG TAB PO SCH (06:35)
[2018-12-18 07:23] LABS: Hematocrit (blood only) 28.1 % (37-47); Hemoglobin 9.7 g/dL (12.0-16.0); Mean Corpuscular Hgb Conc 34.5 g/dL (32-36); Mean Corpuscular Volume 89.8 fL (80-100); Mean Platelet Volume 8.5 fL (7.4-10.4); Platelet Count 308 K/uL (130-400); RDW Coefficient of Variation 13.9 % (11.5-14.5); RDW Standard Deviation 45.8 fL (36.4-46.3); Red Blood Count 3.13 M/uL (4.2-5.4); White Blood Count 7.24 K/uL (4.8-10.8)
[2018-12-18 08:04] LABS: Creatinine Clr Calc Pharmacy 41.8 ml/min; Est GFR (African American) 60.1; Est GFR (Non-African American) 51.8; Potassium 3.2 mmol/L (3.5-5.1)
[2018-12-18] MEDS ORDERED: POTASSIUM CHLORIDE 10 MEQ / 100ML WTR IV STA (08:13)
[2018-12-18] MEDS: VERAPAMIL HCL 180 MG TABCR PO SCH (08:46)
[2018-12-18] MEDS: DOXYCYCLINE HYCLATE 100 MG in DEXTROSE 5% 100 ML IV SCH ×2 (08:46→21:11)
[2018-12-18] MEDS: ESCITALOPRAM OXALATE 10 MG TAB PO SCH (08:46)
[2018-12-18] MEDS: DABIGATRAN ETEXILATE 75 MG CAP PO SCH ×2 (08:46→20:45)
[2018-12-18] MEDS: POTASSIUM CHLORIDE / WTR 10 MEQ/100 ML PLCT IV SCH ×3 (09:29→11:38)
--- NOTE | 2018-12-18 10:22 | Nephrology Progress Note ---
Date of Service December 18, 2018 Assessment & Plan (1) ALINA (acute kidney injury): -- Non-oliguric -- Renal US did not demonstrate evidence of obstruction -- Creatinine improving with supportive care -- Baseline creatinine <1 mg/dL -- Clinically consistent with ATN associated with hypotension, AF/RVR -- Medications appropriate for kidney function -- Volume status acceptable -- Stop NaHCO3 replacement -- Repeat metabolic profile tomorrow AM (2) Hyponatremia: -- Volume status acceptable -- Serum sodium improved -- Stop fluid restriction and oral NaHCO3 (3) Acute respiratory distress: -- Possible aspiration, bibasilar pneumonitis noted on CT chest, remains on Zosyn -- Doxy added for possible anaplasmosis (4) Atrial fibrillation with RVR: -- Rate controlled -- Anticoagulated with Pradaxa -- Digoxin added during admission (5) Hypothyroidism: -- TSH 4.1 (6) Pacemaker: (7) AV block: Subjective No acute events overnight. Vicki feels well this morning. O2 weaned off. No fevers or chills. Breathing comfortably. Appetite improving. Denies abdominal pain. Review of Systems Review of Systems: All systems reviewed & are unremarkable except as noted in HPI & below Physical Exam Constitutional: well developed; no acute distress Eyes: no scleral abnormality and no corneal abnormality ENMT: Mouth: no oral mucosal abnormality and oral mucous membranes not dry Neck: normal visual inspection Thyroid: normal thyroid Respiratory: normal respiratory effort Auscultation: lungs clear to auscultation bilaterally Cardiovascular: Rate/Rhythm: + irregularly irregular Heart Sounds: normal S1 and normal S2 Vessels: no JVD Extremities: no edema Gastrointestinal (Abdomen): Percussion/Palpation: abdomen soft; abdomen nontender Musculoskeletal: Extremities: no cyanosis and no clubbing Skin: no rashes Neurologic: Motor/Sensory: no tremor and no asterixis Results & Data Vital Signs (Past 12 Hours) Vital Signs Temp Pulse Resp BP Pulse Ox 12/18/18 08:40 112/72 93 12/18/18 08:19 95 12/18/18 07:06 37 C 73 20 96/58 L 95 12/18/18 04:01 36.6 C 67 18 98/59 L 93 12/17/18 23:04 37.0 C 60 18 109/68 93 Laboratory Results Laboratory Results - last 24 hr 0712/18/18 12/18/18 07:11 07:11 07:11 WBC 7.24 RBC 3.13 L Hgb 9.7 L Hct 28.1 L MCV 89.8 MCH 31.0 MCHC 34.5 RDW Std Deviation 45.8 RDW Coeff of [place]an 13.9 Plt Count 308 MPV 8.5 Sodium 136 D Potassium 3.2 L Chloride 101 Carbon Dioxide 28 Anion Gap 7.0 BUN 16 Creatinine 1.07 Est Cr Clr Drug Dosing 41.8 Est GFR ( Amer) 60.1 Est GFR (Non-Af Amer) 51.8 BUN/Creatinine Ratio 15.0 Glucose 79 Calcium 9.0 Digoxin 1.1
[2018-12-18] MEDS: POTASSIUM CHLORIDE 20 MEQ TABCR PO SCH ×2 (10:30→20:45)
--- NOTE | 2018-12-18 10:34 | Cardiology Progress Note ---
Date of Service December 18, 2018 Assessment & Plan (1) Atrial fibrillation with RVR: She has a long history of atrial fibrillation and although the heart rates have been somewhat elevated in general they have been reasonable. She now presents with a very rapid heart rate on the same medications she has been on. I suspect the increase in heart rate was due to high catecholamines. I agree that we need better rate control when she is in atrial fibrillation, now she is on an increase her AV jason blockers. Specifically I added a loading dose of digoxin (level 1.4) with a daily dose starting December 16, 2018. This and treating her underlying condition has controlled her heart rate very well. Her blood pressure is borderline and somewhat low at times. The advantage of digoxin as it may not lower her blood pressure therefore my inclination is to continue digoxin and perhaps we can discontinue metoprolol. I discontinued her metoprolol yesterday but she may have received it, so far her heart rate is well controlled. Digoxin level is good at 1.1 today. If she goes home we can also follow her heart rate with her pacemaker monitoring. (2) Pacemaker: Pacemaker interrogation shows normal pacemaker function, her unusual pattern on telemetry was MVP mode. She is in atrial fibrillation most, but not all, of the time. Overall rate control since last interrogation is adequate although a little bit elevated and further rate control may be prudent over the long run. (3) AV block: She has a history of heart block, at times however she is conducting and the pacemaker can accommodate that. It gives an unusual look on telemetry but is normal function. (4) Right ventricular dilation: On her echocardiogram this visit she has right ventricular dilatation but her pressures are not elevated. She does have severe TR. This may be acute related to her pulmonary presentation, possibly due to volume overload, in any case there is no indication for further evaluation or treatment now but we can follow this as an outpatient to see if it resolves. Subjective She is feeling quite well today, she is not on oxygen and is not short of breath at rest. Understand with activity she is short of breath and I did not evaluate that. She has no palpitations. Physical Exam Physical Exam: Constitutional: Alert, cooperative and in no distress. Pulmonary: Clear to auscultation bilaterally. Cardiac: Irregular rhythm with no murmur, gallop or rub. Abdomen: Soft, nontender with normal bowel sounds. Extremities: No edema. Skin: No rash, ecchymoses or petechiae. Results & Data Vital Signs (Past 12 Hours) Vital Signs Temp Pulse Resp BP Pulse Ox 12/18/18 08:40 112/72 93 12/18/18 08:19 95 12/18/18 07:06 37 C 73 20 96/58 L 95 12/18/18 04:01 36.6 C 67 18 98/59 L 93 12/17/18 23:04 37.0 C 60 18 109/68 93 Diagnostic Findings Telemetry: Atrial fibrillation with intermittent ventricular pacing. Heart rate overall well controlled
[2018-12-18] MEDS ORDERED: Nursing to Pharmacy Communication ONE (11:07)
--- NOTE | 2018-12-18 15:52 | Hospitalist Progress Note ---
Date of Service December 18, 2018 Assessment & Plan (1) Fever: 73 y/o F Hx CVA 2009, HTN, HLD, hypothyroid, SVTs, chronic AF, complete heart block 2015 leading to pacer placement. The pt presented with nonspecific complaint of nausea, diaphoresis, fatigue and an unsteady gait. She had some back pain but denied CP or SOB. She was apparently unable to walk across the room without resting due to fatigue. When she arrived in the ER, rapid AF in the 200BPM range was apparent. She responded to a dose of diltiazem and IV Metoprolol with symptomatic improvement, but her rate remained in the 120s. Initial labs demonstrated mild ALINA and hyponatremia, and were otherwise unremarkable including a normal troponin. fever, peripheral smear now with concern for anaplasmosis, negative results of urine and blood cultures, Lyme check was negative Pt started on doxycycline and also zosyn as developed gram negative and/or aspiration pneumonitis with concern for aspiration pneumonia patient is in no additional fever since the addition of treatment for anaplasmosis. Patient's oxygen requirement is now returned to room air her Zosyn will be discontinued in favor that this was pneumonitis and not pneumonia she maintains doxycycline for her anaplasmosis (2) Atrial fibrillation with RVR: Rapid AF - initially placed on a Diltiazem drip. Received 7.5 mg Metoprolol. Her daily Toprol was increased to 100QD she maintains her verapamil and has been taken off her diltiazem drip. Electrophysiology is seen on 12/14 and added digoxin. She is anticoagulated with Pradaxa Continues to remain rate controlled Pt has developed acute kidney injury and thus digoxin dose was reduced to 0.125 daily Full code - Pradaxa dvt prophylaxis (3) Acute kidney injury: Acute kidney injury is resolved, previously she has had normal renal U/s and nephrology had diagnosed ATN (4) Acute respiratory failure with hypoxia: pt had episode of aspiration of water and had right lower lobe changes on CXR, started on Zosyn due to concern for gram negative and/or aspiration pneumonitis with concern for aspiration pneumonia patient is now been weaned off oxygen in the room air suggesting this is not pneumonia but more likely a pneumonitis which has resolved There is some mention of a right to left shunt in the chart on her echo this does not seem to be the case this might be typographical airoxygen. (5) HTN (hypertension): now with metoprolol at 100mg plus home verapamil 360 mg a day (6) History of CVA (cerebrovascular accident): control risk factors, remains on Pradaxa (7) Hypothyroidism: Clinically stable on synthroid (8) Insomnia: We will stop Seroquel as it had an untoward effect on eating a feeling of being hung over in the morning Subjective Patient feels better today although the Seroquel for sleep was slightly deeper with some of a hangover she has not having it tonight. She is markedly weak and deconditioned and will have a PT OT evaluation. She overall is improving her sodium is returned to normal she still is hypokalemic. Her A. fib is been in control and she is currently on room air suggesting that her pneumonic process has resolved Review of Systems Review of Systems: ROS: well nourished well developed. No double vision blurry vision No problems with speech or swallowing No palpitations, chest pain or pressure No Wheezing or breathing issues No abdominal pain nausea vomiting diarrhea changes in appetite or weight No burning urine urine frequency or changes in color No focal joint pain or muscle pain No skin rashes or oral lesions No unusual bruising or bleeding No focused back pain or numbness or loss of strength overall feels very weak and fatigued No changes in memory or confusion Physical Exam Physical Exam: The patient appeared well nourished and normally developed. Vital signs as documented. Her heart rate remains rate controlled Head exam is unremarkable. normocephalic, atraumatic Neck is without jugular venous distension, thyromegaly, or lymphademopathy Lungs are with some right basilar persistent rhonchi but much less than previous Cardiac exam reveals rate controlled irregular rhythm Abdominal exam reveals normal bowel sounds, no masses, no organomegaly Extremities are nonedematous and both pedal pulses are present Neurologic exam is A&Ox3, no focal deficits, strength is equal bilateral globally reduced Psychologically seems anxious Skin is warm Dry Results & Data Vital Signs (Past 12 Hours) Vital Signs Temp Pulse Pulse Resp BP Pulse Ox 12/18/18 15:32 36.5 C 60 20 111/57 L 92 12/18/18 14:47 60 12/18/18 10:57 36.6 C 72 20 101/64 92 12/18/18 08:40 112/72 93 12/18/18 08:19 95 12/18/18 07:06 37 C 73 20 96/58 L 95 12/18/18 04:01 36.6 C 67 18 98/59 L 93 PG Care Time/CCT Total # of Minutes Spent Total Time Spent with Patient: Total time spent is greater than 50% in coordination of care (as documented) at patient's floor/unit and/or counseling patient:
[2018-12-18] MEDS: DIGOXIN 0.125 MG TAB PO SCH (15:59)
[2018-12-19] MEDS: LEVOTHYROXINE SODIUM 100 MCG TABLET PO SCH (05:41)
[2018-12-19] MEDS: DOXYCYCLINE HYCLATE 100 MG in DEXTROSE 5% 100 ML IV SCH (09:27)
[2018-12-19] MEDS: VERAPAMIL HCL 180 MG TABCR PO SCH (09:28)
[2018-12-19] MEDS: DABIGATRAN ETEXILATE 75 MG CAP PO SCH ×2 (09:28→20:24)
[2018-12-19] MEDS: ESCITALOPRAM OXALATE 10 MG TAB PO SCH (09:28)
[2018-12-19] MEDS: POTASSIUM CHLORIDE 20 MEQ TABCR PO SCH (09:28)
[2018-12-19 10:31] LABS: Albumin Level 2.6 gm/dl (3.4-5.0); BUN Creatinine Ratio 11.9 (10-20); Calcium 9.1 mg/dl (8.5-10.1); Creatinine Clr Calc Pharmacy 45.1 ml/min; Est GFR (Non-African American) 56.9; Phosphorus 2.4 mg/dl (2.5-4.9); Potassium 4.3 mmol/L (3.5-5.1)
--- NOTE | 2018-12-19 11:05 | Nephrology Progress Note ---
Date of Service December 19, 2018 Assessment & Plan (1) ALINA (acute kidney injury): -- Consistent with ATN associated with hypotension, AF/RVR -- Creatinine has returned to baseline -- Metabolic profile is otherwise normal at this time -- Volume status acceptable -- Nephrology will sign-off, please call with any additional questions or concerns (2) Hyponatremia: -- Associated with acute illness, poor solute intake, and CRS -- This appears to have resolved -- Outpatient follow up can be arranged in the nephrology clinic at discharge if additional monitoring is felt necessary (3) Acute respiratory distress: -- Possible aspiration, bibasilar pneumonitis noted on CT chest, remains on Zosyn -- Doxy added for suspected anaplasmosis (4) Atrial fibrillation with RVR: -- Rate controlled -- Anticoagulated with Pradaxa -- Digoxin level has been appropriate (5) Hypothyroidism: -- TSH 4.1 (6) Pacemaker: (7) AV block: Subjective No acute events overnight. Metabolic profile remains normal. Vicki feels reasonably well. Breathing comfortably on room air. Review of Systems Review of Systems: All systems reviewed & are unremarkable except as noted in HPI & below Physical Exam Constitutional: well developed; no acute distress Eyes: no scleral abnormality and no corneal abnormality ENMT: Mouth: no oral mucosal abnormality and oral mucous membranes not dry Neck: normal visual inspection Thyroid: normal thyroid Respiratory: normal respiratory effort Auscultation: lungs clear to auscultation bilaterally Cardiovascular: Rate/Rhythm: + irregularly irregular Heart Sounds: normal S1 and normal S2 Vessels: no JVD Extremities: no edema Gastrointestinal (Abdomen): Inspection/Auscultation: + abdomen distended and normal bowel sounds Percussion/Palpation: abdomen soft; abdomen nontender Musculoskeletal: Extremities: no cyanosis and no clubbing Skin: no rashes Neurologic: Motor/Sensory: no tremor and no asterixis Results & Data Vital Signs (Past 12 Hours) Vital Signs Temp Pulse Pulse Resp BP Pulse Ox 12/19/18 10:49 36.4 C L 77 18 123/69 92 12/19/18 07:36 37 C 78 18 126/75 94 12/19/18 07:12 66 12/19/18 03:41 36.8 C 64 18 109/69 97 Laboratory Results Laboratory Results - last 24 hr 12/19/18 09:49 Sodium 137 Potassium 4.3 D Chloride 104 Carbon Dioxide 26 Anion Gap 7.0 BUN 12 Creatinine 0.99 Est Cr Clr Drug Dosing 45.1 Est GFR ( Amer) 66.0 Est GFR (Non-Af Amer) 56.9 BUN/Creatinine Ratio 11.9 Glucose 91 Calcium 9.1 Phosphorus 2.4 L Albumin 2.6 L
--- NOTE | 2018-12-19 11:59 | Progress Note ---
DATE: 12/19/2018 Chart reviewed. The patient not examined as she was in the bathroom during my visit. SUBJECTIVE: Review of the ventilation perfusion lung scan was essentially normal and certainly suggested a low probability scan for pulmonary thromboembolic disease to explain the patient's significant hypoxemia and A-a gradient on admission. Zosyn has been discontinued. There is no historical suggestion of aspiration and suspect some atelectasis on the CT scan of 12/15/2018. We will repeat a chest x-ray and come back to see the patient when she is disposed for examination.
--- NOTE | 2018-12-19 12:31 | XRay Report ---
TWO VIEW CHEST CLINICAL HISTORY: Atelectasis.. FINDINGS: PA and lateral chest radiographs are compared to chest x-ray and chest CT dated 12/15/2018. A 2-lead cardiac pacemaker is unchanged in position and partially obscures the left mid chest. The he art is enlarged and there is atherosclerotic calcification of the thoracic aorta. The pulmonary vascu lature is noncongested. Chronic interstitial thickening is similar to previous. Small pleural effusio ns are identified with bibasilar atelectasis. There is no pneumothorax. The skeletal structures are o steopenic. The bony thorax appears intact. IMPRESSION: 1. Cardiomegaly and cardiac pacemaker. There is no radiographic evidence of congestive failure. 2. Small pleural effusions with bibasilar atelectasis are similar to previous. Electronically signed by: Honorio Jeffers M.D. 12/19/2018 12:30 PM
--- NOTE | 2018-12-19 13:31 | Hospitalist Progress Note ---
Date of Service December 19, 2018 Assessment & Plan (1) Fever: 73 y/o F Hx CVA 2009, HTN, HLD, hypothyroid, SVTs, chronic AF, complete heart block 2015 leading to pacer placement. The pt presented with nonspecific complaint of nausea, diaphoresis, fatigue and an unsteady gait. She had some back pain but denied CP or SOB. She was apparently unable to walk across the room without resting due to fatigue. When she arrived in the ER, rapid AF in the 200BPM range was apparent. She responded to a dose of diltiazem and IV Metoprolol with symptomatic improvement, but her rate remained in the 120s. Initial labs demonstrated mild ALINA and hyponatremia, and were otherwise unremarkable including a normal troponin. fever, peripheral smear now with concern for anaplasmosis, negative results of urine and blood cultures, Lyme check was negative Pt started on doxycycline and also zosyn as developed gram negative and/or aspiration pneumonitis with concern for aspiration pneumonia patient is in no additional fever since the addition of treatment for anaplasmosis. Physician oral doxycycline on 12/19 Patient's oxygen requirement is now returned to room air her Zosyn will be discontinued in favor that this was pneumonitis and not pneumonia she maintains doxycycline for her anaplasmosis (2) Atrial fibrillation with RVR: Rapid AF - initially placed on a Diltiazem drip. Received 7.5 mg Metoprolol. Her daily Toprol was increased to 100QD she maintains her verapamil and has been taken off her diltiazem drip. Electrophysiology is seen on 12/14 and added digoxin. She is anticoagulated with Pradaxa Continues to remain rate controlled Pt has developed acute kidney injury and thus digoxin dose was reduced to 0.125 daily acute kidney injury is resolved Full code - Pradaxa dvt prophylaxis (3) Acute kidney injury: Acute kidney injury is resolved, previously she has had normal renal U/s and nephrology had diagnosed ATN (4) Acute respiratory failure with hypoxia: pt had episode of aspiration of water and had right lower lobe changes on CXR, started on Zosyn due to concern for gram negative and/or aspiration pneumon itis with concern for aspiration pneumonia patient is now been weaned off oxygen in the room air suggesting this is not pneumonia but more likely a pneumonitis which has resolved There is some mention of a right to left shunt in the chart on her echo this does not seem to be the case this might be typographical airoxygen. (5) HTN (hypertension): now with metoprolol at 100mg plus home verapamil 360 mg a day (6) History of CVA (cerebrovascular accident): control risk factors, remains on Pradaxa consider adding antiplatelet agent (7) Hypothyroidism: Remain clinically stable on synthroid (8) Insomnia: We will stop Seroquel as it had an untoward effect on eating a feeling of being hung over in the morning Subjective Patient feels improved she still using incentive spirometry overall she has had good control of her atrial arrhythmia laboratories have returned to normal sodium is at 137 electrolytes are replete. Patient be moved to med telemetry continue to watch her atrial fib continue her rehab with hopes that she will transition to home with outpatient rehab this week Review of Systems 2 Review of Systems: ROS: well nourished well developed. No double vision blurry vision No problems with speech or swallowing No palpitations, chest pain or pressure No Wheezing or breathing issues No abdominal pain nausea vomiting diarrhea changes in appetite or weight No burning urine urine frequency or changes in color No focal joint pain or muscle pain No skin rashes or oral lesions No unusual bruising or bleeding No focused back pain or numbness or loss of strength No changes in memory or confusion Physical Exam Physical Exam: The patient appeared well nourished and normally developed. Vital signs as documented. Head exam is unremarkable. normocephalic, atraumatic Neck is without jugular venous distension, thyromegaly, or lymphademopathy Lungs are few basilar rales which clear with deep inspiration Cardiac exam reveals irregular rate controlled rhythm Abdominal exam reveals normal bowel sounds, no masses, no organomegaly Extremities are nonedematous and both pedal pulses are present Neurologic exam is A&Ox3, no focal deficits, strength is equal bilateral Psychologically seems neither anxious or depressed Skin is warm Dry without bruises or lesions Results & Data Vital Signs (Past 12 Hours) Vital Signs Temp Pulse Pulse Resp BP Pulse Ox 12/19/18 10:49 36.4 C L 77 18 123/69 92 12/19/18 07:36 37 C 78 18 126/75 94 12/19/18 07:12 66 12/19/18 03:41 36.8 C 64 18 109/69 97 PG Care Time/CCT Total # of Minutes Spent Total Time Spent with Patient: Total time spent is greater than 50% in coordination of care (as documented) at patient's floor/unit and/or counseling patient:
[2018-12-19] MEDS: DIGOXIN 0.125 MG TAB PO SCH (15:53)
[2018-12-19] MEDS: DOXYCYCLINE HYCLATE 100 MG CAP PO SCH (20:24)
[2018-12-20] MEDS: LEVOTHYROXINE SODIUM 100 MCG TABLET PO SCH (05:39)
[2018-12-20 06:47] LABS: Hematocrit (blood only) 30.6 % (37-47); Hemoglobin 10.2 g/dL (12.0-16.0); Mean Corpuscular Hgb Conc 33.3 g/dL (32-36); Mean Corpuscular Volume 91.6 fL (80-100); Mean Platelet Volume 8.5 fL (7.4-10.4); Platelet Count 390 K/uL (130-400); RDW Coefficient of Variation 14.6 % (11.5-14.5); RDW Standard Deviation 48.5 fL (36.4-46.3); Red Blood Count 3.34 M/uL (4.2-5.4); White Blood Count 10.03 K/uL (4.8-10.8)
[2018-12-20] MEDS: VERAPAMIL HCL 180 MG TABCR PO SCH (08:05)
[2018-12-20] MEDS: DABIGATRAN ETEXILATE 75 MG CAP PO SCH (08:05)
[2018-12-20] MEDS: ESCITALOPRAM OXALATE 10 MG TAB PO SCH (08:05)
[2018-12-20] MEDS: DOXYCYCLINE HYCLATE 100 MG CAP PO SCH (08:05)
[2018-12-20] MEDS: DIGOXIN 0.125 MG TAB PO SCH (16:35)
[2018-12-25 00:07] LABS: Ehrlichia chaff DNA Bld Not Detected (Not Detected)
--- NOTE | 2018-12-27 06:52 | Discharge Summary ---
Date of Service date of admission - December 12, 2018 date of discharge - December 20, 2018 Admission HPI Per Admitting Provider 73 y/o F Hx CVA 2009, HTN, HLD, hypothyroid, SVTs, chronic AF, complete heart block 2015 leading to pacer placement. The pt presented with nonspecific complaint of nausea, diaphoresis, fatigue and an unsteady gait. She had some back pain but denied CP or SOB. She was apparently unable to walk across the room without resting due to fatigue. When she arrived in the ER, rapid AF in the 200BPM range was apparent. She responded to a dose of diltiazem and IV Metoprolol with symptomatic improvement, but her rate remained in the 120s. Initial labs demonstrated mild ALNIA and hyponatremia, and were otherwise unremarkable including a normal troponin. Principal Diagnosis anaplasmosis tick-borne infection Discharge Exam Constitutional well developed and well nourished; no acute distress ENMT external ear and nose normal, oropharynx normal Respiratory normal respiratory effort; no respiratory distress Auscultation: + rales (fine, bases); no wheezes Cardiovascular Rate/Rhythm: regular rate and + irregularly irregular Heart Sounds: normal S1 and normal S2; no murmur Vessels: posterior tibial pulses present and dorsalis pedis pulses present; no JVD Extremities: no edema Gastrointestinal (Abdomen) normal bowel sounds, soft, nontender, no hepatosplenomegaly Skin no rashes, warm and dry Psychiatric A+Ox3, euthymic affect Discharge Data Allergies Allergy/AdvReac Type Severity Reaction Status Date / Time No Known Allergies Allergy Unverified 12/22/18 14:15 Consultations 1. cardiology - Justino rTent MD 2. nephrology - Miguel Bhatt DO 3. pulmonary - Obdulio Law MD 4. PT, OT Ordered Studies 1. CT chest: IMPRESSION: 1. Motion degraded exam. 2. Cardiomegaly without overt pulmonary edema. 3. Small pleural effusions with bibasilar dependent consolidative and groundglass densities suggestive of atelectasis or pneumonitis. 4. Prominent mediastinal and hilar lymph nodes, likely reactive. 5. Trace upper abdominal ascites with mild nonspecific stranding of the upper abdomen, partially imaged. 2. renal u/s - no hydronephrosis. 3. chest x-ray - IMPRESSION: 1. Cardiomegaly and cardiac pacemaker. There is no radiographic evidence of congestive failure. 2. Small pleural effusions with bibasilar atelectasis are similar to previous. 4. V/Q scan - low probability for PE. 5. echocardiogram - * EF 60-65% * moderate RV systolic dysfunction * moderate-severe TR * normal estimated pulmonary pressures Hospital Course (1) Anaplasmosis: Patient had fevers with chills about 24 hours after admission. Blood/urine cultures were dispatched on the AM of 12/13/18. These were ultimately negative. On 12/15/18 a formal peripheral smear by pathology showed intracytoplasmic inclusion bodies highly concerning for anaplasmosis. Doxycycline was added at that time. The patient's infectious symptoms, fatigue, etc all improved with doxycycline therapy. At time of discharge anaplasmosis and ehrlichia PCR testing were both pending; however, she will complete a course of doxycycline for suspected anaplasmosis. (2) Atrial fibrillation with RVR: Patient had severe a.fib with RVR at time of hospital presentation. Fortunately troponins remained negative and she never had decompensated CHF. She was seen in consult by Dr Justino Trent who provided retana recommendations for her cardiac care. Ultimately a combination of digoxin and verapamil were used for rate control. This combination provided excellent control while hospitalized. Metoprolol was discontinued in jose juan of digoxin. She remains on pradaxa twice daily for anticoagulation. Echo showed preserved EF but development of RV dysfunction - etiology uncertain. Will need follow-up for such. (3) Acute respiratory failure with hypoxia: The patient's respiratory status worsened on the AM of 12/15/18. CT chest showed findings suggestive of a pneumonitis. She was seen by Dr Obdulio Law from pulmonary who recommended broad-spectrum IV antibiotics in addition to the doxycycline for the suspected anaplamosis. Apparently the patient has a history of a right-left shunt via a PFO and this was felt to be contributing to her oxygen requirement as well. Further, she received some IV diuretic for questionable decompensated CHF although later on it was felt that CHF was likely not a primary player in her clinical course. She gradually improved from a pulmonary standpoint and O2 was weaned off by the time of discharge. Additional work-up for her hypoxia included V/Q scan which showed low probability for PE. At discharge she will remain on doxycycline for the anaplasmosis; this will also cover any atypical infectious process of the lungs. (4) Acute kidney injury: Likely due to ATN in setting of hypotension from infection and a.fib with RVR. Peak Cr 2.1, improving to 0.9 at discharge. Retana recommendations were provided by Dr Bhatt from [facility]. (5) Hyponatremia: Lowest Na level was 124, improving to 137 by discharge. SIADH was suspected, and the sodium normalized with fluid restriction. She will need BMP after discharge to ensure stability. Perhaps the hyponatremia was related to her anaplasmosis infection or her pneumonitis. (6) HTN (hypertension): Controlled during the stay. (7) Hypothyroidism: TSH was 4 while here. She remains on synthroid 100mcg daily. (8) Pacemaker: Placed remotely for h/o high degree AV block. (9) Right heart failure: NEW, as seen on echo this admission. Etiology uncertain. Follow-up with cardiology advised. Total Time Total Time Spent Total Time Spent (In Minutes): 45 Total Time Includes: Examination of the Patient, Discharge Planning and Med ication Reconciliation Discharge Plan Discharge Items Patient Disposition: Home - Home Health Services Reason For Visit: rapid a.fib Discharge Diagnosis: 1. rapid a.fib - much improved. 2. suspected anaplasmosis (tick-borne infection) - resolving. Discharge Goals: Diagnostic testing and Therapeutic intervention Activity: Resume your previous activity Activity Comment: as tolerated Non-emergency contact: Primary Care Provider Call non-emergency contact if: you have any medication questions, your symptoms worsen and your temperature is above 100.5 Follow-up/Referrals: Vivien Fragoso MD [Primary Care Provider] - 12/22/18 2:00 pm (Please, follow up at Dr. Fragoso's office with her associate, Renee NIX, on ThursdayDecember 22 at 2:00 pm. *If you need to change this appointment, call their office at [phone].) Diet: Heart Healthy Diet Texture: Dental soft (bite-sized) Addtl Provider Instructions: You were admitted to the hospital due to rapid atrial fibrillation. Shortly after admission you then developed fever with shaking chills. We ultimately found evidence of a tick-borne infection called anaplasmosis. You improved with doxycycline antibiotic. Dr Trent from [facility] saw you for your a.fib and multiple changes were made in your a.fib medications. Recommendations - 1. anaplasmosis treatment - * doxycycline 100mg twice a day for 8 days * this medication can cause heartburn * it can also cause a rash if you go out in the sun while taking it; thus, cover up well and use sunscreen liberally over the next 10 days * we have sent confirmatory testing and this should be back in about 1 week; your family doctor can follow-up on these lab tests 2. a.fib - * STOP your metoprolol * in its place please take digoxin 0.125mg daily, about 4-5pm each day * I have called the digoxin into the pharmacy for you follow-up - see separate section. Return to [facility] if -- * you have recurrent fevers over 100.5 degrees * you have worsening shortness of breath or chest pains * you have rapid heart beating / palpitations * you have worsening fatigue or weakness * any other concerns Prescriptions: New doxycycline hyclate 100 mg Capsule 100 mg PO BID 8 Days Qty: 16 RF: 0 digoxin 125 mcg Tablet 0.125 mg PO DAILY@1600 Qty: 30 RF: 2 Continued loratadine 10 mg tablet 1 PO .Take 1 tablet daily Qty: 90 RF: 0 acetaminophen [Tylenol] 325 mg Tablet 325 mg PO Q6H PRN (Reason: Pain) RF: 0 verapamil 360 mg capsule,ext rel. pellets 24 hr 360 mg PO QAM RF: 0 levothyroxine 100 mcg tablet 100 mcg PO QAM RF: 0 fluticasone propionate [Flonase Allergy Relief] 50 mcg/actuation [place],Suspension 2 spray INTRANASAL DAILY PRN (Reason: Congestion) RF: 0 escitalopram oxalate 10 mg tablet 10 mg PO QAM RF: 0 cholecalciferol (vitamin D3) [Vitamin D3] 2,000 unit Tablet 2,000 unit PO HS RF: 0 Pradaxa 150 mg capsule 150 mg PO BID RF: 0 Discontinued metoprolol succinate 50 mg tablet extended release 24 hr 50 mg PO QAM RF: 0 cephalexin 500 mg capsule 500 mg PO TID RF: 0 Stand-Alone Forms: Call Back Authorization, [facility] Discharge Orders: Discharge Order (Routine); Ordered 12/20/18 Ordered By: Khoa Ortega Admission Data Admit Date/Time: 12/12/18 11:20 Attending Provider: Khoa Ortega Admit Provider: Royer Bahena Primary Care Provider: Vivien Fragoso Other Providers: Royer Bahena ; Khoa Ortega ; Justino Trent ; Suraj Law Service: Telemetry Medical Other Interventions: Discharge Summary Assessment (RN) Last Done: 12/20/18 16:05 Pending Studies at Discharge: Yes Studies:: tick-borne disease testing DC Date/Time DO NOT enter until pt leaves facility: 12/20/18 16:55
== END 2018-12-20 16:55 | disposition home health service (06) | DRG 308 ==
LOC: ED 09:02 → SUATTDRO 11:20 → 2S 11:57 → 2N 12-19 13:26

== ENCOUNTER 2021-05-23 12:47 | Inpatient (IN) ==
[2021-05-23] MEDS ORDERED: HYDROmorphone INJ 1 MG/ML SYRINGE IV STA (13:21)
[2021-05-23 13:55] LABS: Basophils # (auto) 0.03 K/uL (0-0.2); Basophils % (auto) 0.3 %; Eosinophils # (auto) 0.03 K/uL (0-0.5); Eosinophils % (auto) 0.3 %; Hematocrit (blood only) 33.8 % (37-47); Hemoglobin 11.6 g/dL (12.0-16.0); Immature Granulocytes # (auto) 0.01 K/uL (0.00-0.02); Immature Granulocytes % (auto) 0.1 %; Lymphocytes # (auto) 1.53 K/uL (1.2-3.4); Lymphocytes % (auto) 13.7 %; Mean Corpuscular Hemoglobin 30.9 pg (25-34); Mean Corpuscular Hgb Conc 34.3 g/dL (32-36); Mean Corpuscular Volume 89.9 fL (80-100); Mean Platelet Volume 8.8 fL (7.4-10.4); Monocytes # (auto) 1.07 K/uL (0.11-0.59); Monocytes % (auto) 9.6 %; Neutrophils # (auto) 8.53 K/uL (1.4-6.5); Platelet Count 332 K/uL (130-400); RDW Coefficient of Variation 12.8 % (11.5-14.5); RDW Standard Deviation 42.2 fL (36.4-46.3); Red Blood Count 3.76 M/uL (4.2-5.4)
--- NOTE | 2021-05-23 14:01 | Emergency Department Note ---
Impression & Plan Postoperative pain of left knee, Foreign body of left knee ED Provider Note CHIEF COMPLAINT: Left knee pain HISTORY OF PRESENT ILLNESS: Vicki Blas is a 76 year old female with recent history of left knee replacement on 04/15/21 followed by revision on 05/15/21 due to infection, currently on IV Vancomycin through R PICC, who presents to the Emergency Department for evaluation of worsening pain to her left knee over the past week. Currently she describes her pain as "spasms" and rates her discomfort as a 9/10 which has not been relieved after taking Oxycodone and Tramadol yesterday as well as Flexeril today. The patient states that she has been having difficulty ambulating secondary to her discomfort which has led to several falls. She denies hitting her head or losing consciousness during these episodes and denies injuring anything else. The patient does still have the post-operat nichole bandage in place over her left knee with a small amount of dried blood on the gauze. She states that she previously had a wound vac but this has since been removed. She has not had yet had a post-op check since her last procedure. The patient denies recent fevers/chills, chest pain, palpitations, shortness of breath, abdominal pain, nausea, vomiting, diarrhea or urinary symptoms. No other acute complaints. REVIEW OF SYSTEMS: 10 systems were reviewed and were negative unless otherwise stated in HPI as above PHYSICAL EXAM: VITALS: Vitals are noted on the nurse's note and reviewed by myself. Vital signs stable. General: Resting in bed, appears uncomfortable but no acute distress HEENT: Normocephalic, atraumatic, PERRL, EOMI, oropharynx clear Neck: No mid-line cervical tenderness, ROM intact Resp: Good inspiratory effort on room air, lung sounds clear bilaterally CV: Regular rate and rhythm, peripheral pulses palpated Abd: Soft, non-tender MSK/Integumentary: With attention to the LLE, left knee with post-op dressing in place with small amount of dried blood, otherwise clean, dry and intact. Left knee appears edematous with some ecchymosis surrounding the dressing, warm and tender to the touch. ROM intact but limited secondary to pain. No significant tenderness to palpation of the hip, thigh, amaya/calf or foot. D/p pulse intact. Moving all other extremities without apparent pain or difficulty. No other appreciable wounds or rashes. Neuro: Awake, alert, interacting and answering questions appropriately Differential diagnosis includes post-operative pain, post-operative infection, septic joint, new fracture, dislocation, subluxation, effusion, hardware malfunction among others were considered. EMERGENCY DEPARTMENT COURSE: Physical exam and history were performed. Nursing triage notes, EMR, and medication list were personally reviewed. Patient with recent history of left knee replacement on 04/15/21 followed by revision on 05/15/21 due to infection, currently on IV Vancomycin through R PICC, who presents to the Emergency Department for evaluation of worsening pain to her left knee over the past week as described above. See exam as above. She was offered pain medication. IV access was established and she was given Dilaudid 1 mg. Labs were obtained and reviewed by myself as below. Of note, she did have a leukocytosis with a WBC of 11.20 increased from 8.94 since previous draw on 05/20. Mild anemia with hemoglobin 11.6 which appears to be at baseline compared to previous. She was hyponatremic with Na 131, slightly decreased from 132 on 05/22. Additional electrolytes WNL. LFTs non-diagnostic. Lactate not elevated at 1.9. CRP increased at 5.67 and ESR elevated at 41 consistent with recent infection and operative procedure. X-rays were obtained and were reviewed by radiologist and myself as below. This did show a 3 cm foreign body, thought to be a catheter fragment, projected over the inferior margin of the patella. Upon reevaluation, the patient was feeling improved after receiving the pain medication. I discussed the results of the above findings with her and her at bedside as well as my attending, Dr. Peña, who was involved throughout the patient's course of care. Nathanael Ervin PA-C of [facility] was also contacted regarding the patient's case. He agreed to evaluate the patient for further management. The patient and her verbalized their understanding and agreement with this treatment plan. The chart was completed utilizing [employer] Voice Recognition Software. Grammatical errors, random word insertions, pronoun errors, and incomplete sentences are an occasional consequence of this system due to software limitations, ambient noise, and hardware issues. Any formal questions or concer ns about the content, text, or information contained within the body of this dictation should be directly addressed to the provider for clarification. Past Med/Surg History Medical History Anaplasmosis Atrial fibrillation Complete heart block Depression Dyslipidemia History of CVA (cerebrovascular accident) HTN (hypertension) Hypothyroidism Impaired fasting glucose Mitral valve disease Osteoporosis declines meds Pacemaker Rheumatic fever Urge incontinence Vitamin D deficiency Surgical History History of permanent cardiac pacemaker placement Status post left knee replacement Family History Unknown Cancer Thyroid disorder History of arthritis Other Family history non-contributory Social History Smoking Status: Never smoker Second Hand Exposure: No; Hx Alcohol Use: No Hx Substance Use: No Preferred Language: Spanish Communication Ability: Effective Hearing Ability: Normal Screener Perfumer Required: No marital status: Current Living Situation: Spouse current occupational status: retired Feels Safe at Home: Yes Seatbelt Use: always Sunscreen Use: Yes Assistive Devices: Glasses and Walker Allergies Allergies Allergy/AdvReac Type Severity Reaction Status Date / Time simvastatin Allergy Unknown MYALGIA Verified 05/23/21 14:19 Sulfa (Sulfonamide Allergy Unknown Verified 05/23/21 14:19 Antibiotics) Home Meds Home Medications Medication Instructions Recorded Confirmed acetaminophen 325 mg tablet 325 mg PO Q6H PRN 01/10/19 05/23/21 (Tylenol) cholecalciferol (vitamin D3) 50 2,000 unit PO HS 01/10/19 05/23/21 mcg (2,000 unit) tablet (Vitamin D3) Previous Rx's Medication Instructions Recorded dabigatran etexilate 150 mg 150 mg PO BID #180 cap 07/20/20 capsule (Pradaxa) triamterene 37.5 1 cap PO DAILY #90 cap 11/13/20 mg-hydrochlorothiazide 25 mg capsule verapamil 360 mg 24 hr 360 mg PO DAILY #90 cap 11/13/20 capsule,extended release digoxin 125 mcg (0.125 mg) tablet 125 mcg PO DAILY #90 tab 04/08/21 cyclobenzaprine 5 mg tablet 5 mg PO BID PRN #30 tab 04/30/21 Results & Data (ED) Vital Signs Vital Signs - 24 hr 05/23/21 12:39 05/23/21 13:04 05/23/21 13:30 Temperature 36.9 C Temperature Source Oral Pulse Rate 103 H 95 H 98 H Pulse Rate from SpO2 Sensor 103 H Respiratory Rate 18 18 22 Respiratory Effort / Characteristics Non-Labored Spontaneous Respiratory Depth Normal Blood Pressure 132/59 L 135/70 Blood Pressure Mean 83 91 Pulse Oximetry 98 99 97 Oxygen Delivery Method Room Air Sepsis Recent Fever Within 48 Hours No Sepsis New/Unexplained Change in Mental Status No Sepsis Action Taken by Nursing No Action Required 05/23/21 14:00 05/23/21 14:30 05/23/21 15:00 Temperature Temperature Source Pulse Rate 100 H 84 93 H Pulse Rate from SpO2 Sensor Respiratory Rate 19 22 15 Respiratory Effort / Characteristics Respiratory Depth Blood Pressure 129/67 Blood Pressure Mean 87 Pulse Oximetry 97 97 98 Oxygen Delivery Method Sepsis Recent Fever Within 48 Hours Sepsis New/Unexplained Change in Mental Status Sepsis Action Taken by Nursing 05/23/21 15:30 05/23/21 16:00 05/23/21 16:37 Temperature Temperature Source Pulse Rate 82 91 H Pulse Rate from SpO2 Sensor Respiratory Rate 16 21 57 H Respiratory Effort / Characteristics Respiratory Depth Blood Pressure 129/67 118/88 Blood Pressure Mean 87 98 Pulse Oximetry Oxygen Delivery Method Sepsis Recent Fever Within 48 Hours Sepsis New/Unexplained Change in Mental Status Sepsis Action Taken by Nursing 05/23/21 17:00 05/23/21 17:30 05/23/21 18:00 Temperature Temperature Source Pulse Rate 105 H 98 H 81 Pulse Rate from SpO2 Sensor 80 83 Respiratory Rate 15 19 21 Respiratory Effort / Characteristics Respiratory Depth Blood Pressure 120/84 Blood Pressure Mean 96 Pulse Oximetry 94 96 Oxygen Delivery Method Sepsis Recent Fever Within 48 Hours Sepsis New/Unexplained Change in Mental Status Sepsis Action Taken by Nursing 05/23/21 18:30 05/23/21 18:37 Temperature Temperature Source Pulse Rate 84 Pulse Rate from SpO2 Sensor Respiratory Rate 17 Respiratory Effort / Characteristics Respiratory Depth Blood Pressure 134/80 Blood Pressure Mean 98 Pulse Oximetry 98 Oxygen Delivery Method Room Air Sepsis Recent Fever Within 48 Hours Sepsis New/Unexplained Change in Mental Status Sepsis Action Taken by Nursing Laboratory Data Result diagrams: 05/23/21 13:45 05/23/21 13:45 Lab Results 12/16/21 12/16/21 12/16/21 Range/Units 13:45 13:45 13:45 WBC 11.20 H (4.8-10.8) K/uL RBC 3.76 L (4.2-5.4) M/uL Hgb 11.6 L (12.0-16.0) g/dL Hct 33.8 L (37-47) % MCV 89.9 (80-100) fL MCH 30.9 (25-34) pg MCHC 34.3 (32-36) g/dL RDW Std Deviation 42.2 (36.4-46.3) fL RDW Coeff of Hernan 12.8 (11.5-14.5) % Plt Count 332 (130-400) K/uL MPV 8.8 (7.4-10.4) fL Immature Gran % (Auto) 0.1 % Neut % (Auto) 76.0 % Lymph % (Auto) 13.7 % Wallace % (Auto) 9.6 % Eos % (Auto) 0.3 % Baso % (Auto) 0.3 % Neut # (Auto) 8.53 H (1.4-6.5) K/uL Lymph # (Auto) 1.53 (1.2-3.4) K/uL Wallace # (Auto) 1.07 H (0.11-0.59) K/uL Eos # (Auto) 0.03 (0-0.5) K/uL Baso # (Auto) 0.03 (0-0.2) K/uL Immature Gran # (Auto) 0.01 (0.00-0.02) K/uL ESR 41 H (0-30) mm/hr Sodium 131 L (136-145) mmol/L Potassium 3.5 (3.5-5.1) mmol/L Chloride 99 (98-107) mmol/L Carbon Dioxide 23 (21-32) mmol/L Anion Gap 9.0 (3-11) BUN 13 (7-18) mg/dl Creatinine 0.99 (0.6-1.2) mg/dl Est Cr Clr Drug Dosing 43.1 ml/min Est GFR ( Amer) 64.6 ml/min Est GFR (Non-Af Amer) 55.7 ml/min BUN/Creatinine Ratio 12.6 (10-20) Glucose 121 H (70-99) mg/dl Lactate (0.4-2.0) mmol/L Calcium 9.6 (8.5-10.1) mg/dl Total Bilirubin 0.8 (0.2-1) mg/dl AST 57 H (15-37) U/L ALT 36 (12-78) Alkaline Phosphatase 93 (45-117) U/L C-Reactive Protein 5.67 H (0-0.29) mg/dl Total Protein 6.9 (6.4-8.2) gm/dl Albumin 3.1 L (3.4-5.0) gm/dl Globulin 3.8 (2.5-4.0) gm/dl Albumin/Globulin Ratio 0.8 L (0.9-2) SARS-CoV-2, RNA, NAAT (NEGATIVE) 05/23/21 05/23/21 Range/Units 13:45 17:00 WBC (4.8-10.8) K/uL RBC (4.2-5.4) M/uL Hgb (12.0-16.0) g/dL Hct (37-47) % MCV (80-100) fL MCH (25-34) pg MCHC (32-36) g/dL RDW Std Deviation (36.4-46.3) fL RDW Coeff of Hernan (11.5-14.5) % Plt Count (130-400) K/uL MPV (7.4-10.4) fL Immature Gran % (Auto) % Neut % (Auto) % Lymph % (Auto) % Wallace % (Auto) % Eos % (Auto) % Baso % (Auto) % Neut # (Auto) (1.4-6.5) K/uL Lymph # (Auto) (1.2-3.4) K/uL Wallace # (Auto) (0.11-0.59) K/uL Eos # (Auto) (0-0.5) K/uL Baso # (Auto) (0-0.2) K/uL Immature Gran # (Auto) (0.00-0.02) K/uL ESR (0-30) mm/hr Sodium (136-145) mmol/L Potassium (3.5-5.1) mmol/L Chloride (98-107) mmol/L Carbon Dioxide (21-32) mmol/L Anion Gap (3-11) BUN (7-18) mg/dl Creatinine (0.6-1.2) mg/dl Est Cr Clr Drug Dosing ml/min Est GFR ( Amer) ml/min Est GFR (Non-Af Amer) ml/min BUN/Creatinine Ratio (10-20) Glucose (70-99) mg/dl Lactate 1.9 (0.4-2.0) mmol/L Calcium (8.5-10.1) mg/dl Total Bilirubin (0.2-1) mg/dl AST (15-37) U/L ALT (12-78) Alkaline Phosphatase (45-117) U/L C-Reactive Protein (0-0.29) mg/dl Total Protein (6.4-8.2) gm/dl Albumin (3.4-5.0) gm/dl Globulin (2.5-4.0) gm/dl Albumin/Globulin Ratio (0.9-2) SARS-CoV-2, RNA, NAAT NEGATIVE (NEGATIVE) Administered Medications Discontinued Medications Hydromorphone HCl (Hydromorphone Inj 1 Mg/Ml Syringe) 1 mg IV NOW STA Stop: 05/23/21 13:22 Last Admin: 05/23/21 13:35 Dose: 1 mg Documented by: [id number] Imaging Data Radiologist's Impression: Knee X-Ray 05/23/21 13:21 XR knee LT 3V HISTORY: 76 years-old Female recent replacement, infection, pain [knee total joint arthroplasty COMPARISON: Left knee radiographs 06/09/2019 TECHNIQUE: 3 views of the left knee FINDINGS: Left knee total joint arthroplasty with patellar resurfacing. Anterior midline skin christophe are noted along with a surgical drainage catheter versus catheter f ragment measuring 3 cm projected along the inferior margin of the patella on the lateral film. Overlying gauze material is present. Suspected small joint effusion with mild circumferential soft tissue prominence. IMPRESSION: Left knee total joint arthroplasty and patellar resurfacing with anterior skin christophe. There is a 3 cm catheter fragment projected over the inferior margin of the patella suggestive of a foreign body. ACT 112: Negative or not required by law. The above report was generated using voice recognition software. It may contain grammatical, syntax or spelling errors. Electronically signed by: Alex Nesbitt M.D. 05/23/2021 2:05 PM Discharge Plan Visit Data Chief Complaint: Leg Injury/Pain Stated Complaint: L LEG CRAMPING ED Provider: Adrien Peña ED Midlevel Provider: Trish Mejia Patient Disposition: Admitted As Inpatient Prescriptions Prescriptions: No Action Pradaxa 150 mg capsule 150 mg PO BID Qty: 180 RF: 3 triamterene-hydrochlorothiazid 37.5-25 mg capsule 1 cap PO DAILY Qty: 90 RF: 3 verapamil 360 mg capsule,ext rel. pellets 24 hr 360 mg PO DAILY Qty: 90 RF: 3 digoxin 125 mcg (0.125 mg) tablet 125 mcg PO DAILY Qty: 90 RF: 3 cyclobenzaprine 5 mg tablet 5 mg PO BID PRN (Reason: muscle spasm) Qty: 30 RF: 0 acetaminophen [Tylenol] 325 mg tablet 325 mg PO Q6H PRN (Reason: Pain) RF: 0 cholecalciferol (vitamin D3) [Vitamin D3] 2,000 unit tablet 2,000 unit PO HS RF: 0
--- NOTE | 2021-05-23 14:07 | XRay Report ---
XR knee LT 3V HISTORY: 76 years-old Female recent replacement, infection, pain [knee total joint arthroplasty COMPARISON: Left knee radiographs 06/09/2019 TECHNIQUE: 3 views of the left knee FINDINGS: Left knee total joint arthroplasty with patellar resurfacing. Anterior midline skin christophe are noted along with a surgical drainage catheter versus catheter fragment measuring 3 cm projected along the inferior margin of the patella on the lateral film. Overlying gauze material is present. Suspected sm all joint effusion with mild circumferential soft tissue prominence. IMPRESSION: Left knee total joint arthroplasty and patellar resurfacing with anterior skin christophe. T here is a 3 cm catheter fragment projected over the inferior margin of the patella suggestive of a fo reign body. ACT 112: Negative or not required by law. The above report was generated using voice recognition software. It may contain grammatical, syntax o r spelling errors. Electronically signed by: Alex Nesbitt M.D. 05/23/2021 2:05 PM
[2021-05-23 15:12] LABS: Albumin Globulin Ratio 0.8 (0.9-2); Albumin Level 3.1 gm/dl (3.4-5.0); BUN Creatinine Ratio 12.6 (10-20); Bilirubin,Total 0.8 mg/dl (0.2-1); C Reactive Protein 5.67 mg/dl (0-0.29); Calcium 9.6 mg/dl (8.5-10.1); Creatinine Clr Calc Pharmacy 43.1 ml/min; Est GFR (African American) 64.6 ml/min; Est GFR (Non-African American) 55.7 ml/min; Globulin 3.8 gm/dl (2.5-4.0); Potassium 3.5 mmol/L (3.5-5.1); Total Protein 6.9 gm/dl (6.4-8.2)
--- NOTE | 2021-05-23 17:50 | History & Physical Report ---
Date of Service May 23, 2021 Assessment & Plan (1) Ambulatory dysfunction: Plan: Patient will be admitted for ambulatory dysfunction and pain control. We tried to ambulate the patient after putting on her new immobilizer. She initially started out well for the first few steps however she continued to become more anxious and her ambulation ability declined rapidly. I have discussed the case with Dr. Ti Matson. We will have orthotics place her in a hinged knee brace tomorrow with range of motion of 0 to 40 degrees. We will also start her on PT and OT protocols weightbearing as tolerated with a hinged knee brace or immobilizer on at all times. He would like to continue the IV antibiotics that he had started secondary to her wound dehiscence. We will consult [facility] for medical management. I have discussed the case as well wi th Dr. Castorena who is agreeable to take her on his service. History of Present Illness Chief Complaint: Ambulatory dysfunction status post left TKA Primary Care Provider: Vivien Fragoso MD Patient is a 76-year-old white female who had undergone a total knee arthroplasty by Dr. Ti Matson in April. The patient states that she was doing well postoperatively however she ended up having part of her wound dehisce. She was taken back to surgery early May and underwent irrigation and debridement of the wound dehiscence along with I believe a retinacular repair. Dr. Matson placed her on IV vancomycin 1000 mg daily secondary to her w ound dehiscence. She was placed in an immobilizer to keep her from bending the knee to ensure healing. She was started on home health PT and nursing care after her second surgery. The patient states that she was having spasms off and on in the left lower extremity. This was around the knee mostly and also sometimes in the hamstring region and also the quadriceps regions. She denies any low back pain and no pain in the left buttock radiating down into the foot. Patient was having ever-increasing ability to ambulate secondary to the spasms. She is accompanied by her presently who states that within the last 48 hours she continued to have multiple spasms and continued pain in the left lower extremity. Dr. Matson had ordered a muscle relaxer for the patient of which she approximately had 2 doses which did not seem to help. An appointment was scheduled for her tomorrow to see Dr. Matson in the office however patient continued to have pain in the left knee and inability to ambulate and they came into the emergency room to be seen. After examination of the patient and attempts to ambulate her it was felt that she would not be able to go home and is being admitted for ambulation dysfunction. Allergies Allergy/AdvReac Type Severity Reaction Status Date / Time simvastatin Allergy Unknown MYALGIA Verified 05/23/21 14:19 Sulfa (Sulfonamide Allergy Unknown Verified 05/23/21 14:19 Antibiotics) Home Medications Medication Instructions Recorded Confirmed Type acetaminophen 325 mg tablet 325 mg PO Q6H PRN 01/10/19 05/23/21 History (Tylenol) cholecalciferol (vitamin D3) 50 2,000 unit PO HS 01/10/19 05/23/21 History mcg (2,000 unit) tablet (Vitamin D3) dabigatran etexilate 150 mg 150 mg PO BID #180 cap 07/20/20 05/23/21 Rx capsule (Pradaxa) triamterene 37.5 1 cap PO DAILY #90 cap 11/13/20 05/23/21 Rx mg-hydrochlorothiazide 25 mg capsule verapamil 360 mg 24 hr 360 mg PO DAILY #90 cap 11/13/20 05/23/21 Rx capsule,extended release digoxin 125 mcg (0.125 mg) tablet 125 mcg PO DAILY #90 tab 04/08/21 05/23/21 Rx cyclobenzaprine 5 mg tablet 5 mg PO BID PRN #30 tab 04/30/21 05/23/21 Rx Past Med/Surg History Medical History Anaplasmosis Atrial fibrillation Complete heart block Depression Dyslipidemia History of CVA (cerebrovascular accident) HTN (hypertension) Hypothyroidism Impaired fasting glucose Mitral valve disease Osteoporosis declines meds Pacemaker Rheumatic fever Urge incontinence Vitamin D deficiency Surgical History History of permanent cardiac pacemaker placement Status post left knee replacement Family History Unknown Cancer Thyroid disorder History of arthritis Other Family history non-contributory Social History Smoking Status: Never smoker Second Hand Exposure: No; Hx Alcohol Use: No Hx Substance Use: No Preferred Language: Portuguese Communication Ability: Effective Hearing Ability: Normal Application Defense 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 Required: No marital status: Current Living Situation: Spouse current occupational status: retired Feels Safe at Home: Yes Seatbelt Use: always Sunscreen Use: Yes Assistive Devices: Walker Review of Systems Review of Systems: All systems reviewed & are unremarkable except as noted in HPI & below Physical Exam Constitutional: WD/WN, vitals as above Eyes: PERRL, conjunctivae normal, anicteric sclerae ENMT: external ear and nose normal, oropharynx normal Respiratory: normal respiratory effort, lungs clear to auscultation Cardiovascular: Rate/Rhythm: + irregularly irregular Gastrointestinal (Abdomen): normal bowel sounds, soft, nontender, no hepatosplenomegaly Musculoskeletal: On examination of the patient's left knee, she had the knee flexed and approximately 100 degrees or more upon entering the room. A apolonia wound VAC dressing was on the wound. The patient was reluctant to straighten her leg out secondary to her history of muscle spasms. However, over a period of time she was able to relax leg to get her knee not quite fully extended but in approximately 30 degrees of flexion. The apolonia dressing was removed. The wound is still well approximated with christophe. She does have an area over the patella that has a little bit increased rubor to it with some scant serous drainage at best. No purulence that I can notice. Nothing that I can express. She has some general tenderness over the knee itself more medially than lateral. The knee is not hot and again no erythema. The patient is very hesitant in trying to go through gentle range of motion. She does not have much in the way of pain and bending the knee but is more afraid of muscle spasms. A new dressing with an Keaton wrap was then placed on the left knee wound. A new immobilizer was applied to the left knee. Calves are soft nontender. Patient denies any decrease sensation in her left foot and toes. She has good range of motion of her left ankle and toes. She states she has some mild tenderness on palpation of the quadriceps muscles and also hamstring however she states most of her pain is in and around the knee and behind the knee mostly. No pain with range of motion of the left hip. Right lower extremity is essentially benign and range of motion intact. Upper extremities are unaffected and range of motion is within normal limits. She denies any cervical, thoracic, lumbar pain at this time. There is no gross motor or sensory loss seen at this time. Skin: no rashes, warm and dry Results & Data Results & Data ([facility]) Vital Signs (Past 12 Hours) Vital Signs Temp Pulse Resp BP Pulse Ox 05/23/21 15:00 93 H 15 98 05/23/21 14:30 84 22 129/67 97 05/23/21 14:00 100 H 19 97 05/23/21 13:30 98 H 22 135/70 97 05/23/21 13:04 95 H 18 99 05/23/21 12:39 36.9 C 103 H 18 132/59 L 98 Diagnostic Findings Patient:LISA KEEN Admit Date:05/23/21 MR#:[id number] Address1:[address] [place] [address] Acct ID:[id number] Address2: Date:1945 [facility] Zip:[place] [address] Age:76 Location:ED Sex:F Room/Bed: Att Phy: Diagnosis:L LEG CRAMPING Beatriz Phy:Vivien Fragoso MD Service Date:05/23/21 Fam Phy:Alicia Mandujano MD Interpreting Phy:Alex NesbittAdmit Phy: Ordering Phy:Trish Mejia PA-C cc: ~ XR knee LT 3V HISTORY: 76 years-old Female recent replacement, infection, pain [knee total joint arthroplasty COMPARISON: Left knee radiographs 06/09/2019 TECHNIQUE: 3 views of the left knee FINDINGS: Left knee total joint arthroplasty with patellar resurfacing. Anterior midline skin christophe are noted along with a surgical drainage catheter versus catheter fragment measuring 3 cm projected along the inferior margin of the patella on the lateral film. Overlying gauze material is present. Suspected small joint effusion with mild circumferential soft tissue prominence. IMPRESSION: Left knee total joint arthroplasty and patellar resurfacing with anterior skin christophe. There is a 3 cm catheter fragment projected over the inferior margin of the patella suggestive of a foreign body. Code Status & VTE Plan VTE Prophylaxis Plan VTE Prophylaxis will be ordered: Yes
[2021-05-23] MEDS ORDERED: VANCOMYCIN CONSULT ACTIVE PRN (19:19)
[2021-05-23] MEDS ORDERED: VANCOMYCIN HCL 1,500 MG in SODIUM CHLORIDE 0.9% 500 ML IV ONE (20:00)
[2021-05-23 20:01] LABS: BUN Creatinine Ratio 10.3 (10-20); Calcium 9.7 mg/dl (8.5-10.1); Creatinine Clr Calc Pharmacy 38.1 ml/min; Est GFR (African American) 55.6 ml/min; Potassium 3.2 mmol/L (3.5-5.1)
--- NOTE | 2021-05-23 20:40 | Consultation ---
Date of Consultation May 23, 2021 Assessment & Plan (1) Ambulatory dysfunction: 76yo female presenting with ambulatory dysfunction, worsening pain and spasm of LLE. Patient has been admitted to the Orthopedic Surgery service. 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 -To havehinged knee brace placed tomorrow -PT and OT -Flexeril PRN spasm -Heating pain PRN spasm (2) Status post left knee replacement: Patient is s/p left knee total arthroplasty performed by Dr. Matson at [facility] on 04/15/21. Concern for post-op infection as patient had some wound dehiscence and drainage. She returned to the OR on 05/09/21 for irrigation and has been on Vancomycin since. Elevated ESR and CRP. Patient is afebrile, HD stable, non-toxic in appearance. She does have a mildly elevated WBC count to 11.2 with neutrophil predominance. XR with possible foreign body present -Continue IV Vancomycin -Remainder of management per primary team - ?utility of arthrocentesis to assist with antibiotic management. Does not seem to be plans to return patient to the OR as of yet. If patient is to go to the OR she should have intraoperative cultures performed to assist with antibiotic management. (3) Leg muscle spasm: As above -Continue Flexeril PRN -Heat -Gentle IVF and electrolyte repletion as needed (4) Hypothyroidism: Patient states she is no longer on thyroid medication. Last TSH on record from 01/21/21 normal at 3.74 -Repeat TSH in AM (5) HTN (hypertension): Blood pressure stable and acceptable at 134/84 -Pain management with Tylenol PRN, Oxycodone and Dilaudid PRN per primary team -Continue Triamterene/HCTZ -Continue Verapamil -Continue to monitor (6) Atrial fibrillation: Rate controlled. Patient anticoagulated on Pradaxa -Continue Digoxin -Continue Verapamil -Continue Pradaxa for now - if plans for OR will hold blood thinner (7) Complete heart block: Patient with pacer in place. No acute issues F/E/N - KVO. K repletion with repeat labs in am. Ppx - Patient on Pradaxa for AF Code - Full per discussion with patient History of Present Illness Reason for Consultation: medical management Attending Physician: Lj Castorena, DO History of Present Illness Vicki Blas is a 76yo female with AF on Pradaxa anticoagulation, HTN, HLP. Patient had a TKA performed on April 15, [address] Matson at [facility]. She reports the surgery went well with no complications. At her two week followup appointment there was some wound dehiscence and drainage noted. Patient returned to the OR on 05/09/21 for irrigation. She comes to the hospital today with worsening pain in the right knee, muscle spasms and ambulatory dysfunction. She denies fever, chills, malaise, nausea, vomiting, diarrhea or constipation. No additional complaints at this time. Allergies Allergy/AdvReac Type Severity Reaction Status Date / Time simvastatin Allergy Unknown MYALGIA Verified 05/23/21 14:19 Sulfa (Sulfonamide Allergy Unknown Verified 05/23/21 14:19 Antibiotics) Home Medications Medication Instructions Recorded Confirmed Type acetaminophen 325 mg tablet 325 mg PO Q6H PRN 01/10/19 05/23/21 History (Tylenol) cholecalciferol (vitamin D3) 50 2,000 unit PO HS 01/10/19 05/23/21 History mcg (2,000 unit) tablet (Vitamin D3) dabigatran etexilate 150 mg 150 mg PO BID #180 cap 07/20/20 05/23/21 Rx capsule (Pradaxa) triamterene 37.5 1 cap PO DAILY #90 cap 11/13/20 05/23/21 Rx mg-hydrochlorothiazide 25 mg capsule verapamil 360 mg 24 hr 360 mg PO DAILY #90 cap 11/13/20 05/23/21 Rx capsule,extended release digoxin 125 mcg (0.125 mg) tablet 125 mcg PO DAILY #90 tab 04/08/21 05/23/21 Rx cyclobenzaprine 5 mg tablet 5 mg PO BID PRN #30 tab 04/30/21 05/23/21 Rx Patient History Medical History Anaplasmosis Atrial fibrillation Complete heart block Depression Dyslipidemia History of CVA (cerebrovascular accident) HTN (hypertension) Hypothyroidism Impaired fasting glucose Mitral valve disease Osteoporosis declines meds Pacemaker Rheumatic fever Urge incontinence Vitamin D deficiency Surgical History History of permanent cardiac pacemaker placement Status post left knee replacement Family History Unknown Cancer Thyroid disorder History of arthritis Other Family history non-contributory Social History Smoking Status: Never smoker Second Hand Exposure: No; Hx Alcohol Use: No Hx Substance Use: No Preferred Language: Tanzanian Communication Ability: Effective Hearing Ability: Normal Rotary Drier Required: No marital status: Current Living Situation: Spouse current occupational status: retired Feels Safe at Home: Yes Seatbelt Use: always Sunscreen Use: Yes Assistive Devices: Glasses and Walker Review of Systems Review of Systems: All systems reviewed & are unremarkable except as noted in HPI & below Physical Exam Physical Exam: General: patient resting comfortably, NAD, non-toxic in appearance, AA&O x 4 Skin: warm, dry, intact, no rashes or lesions HEENT: NC/AT, PERRL, EOMI, anicteric sclera, conjunctiva without injection, external ear normal to inspection and nontender, nares patent, moist mucus membranes, dentition intact, no oropharyngeal lesions, neck supple, trachea midline, no LAD, no thyromegaly, no JVD Heart: +S1/S2, regular, no m/r/g Lungs: equal air entry bilaterally, no rales/rhonchi/wheezes Abd: +BS, soft, NT/ND, no masses/organomegaly/ascites Ext: warm, 2+ pulses in UE/LE bilaterally, no clubbing/cyanosis or edema, immobilizer present on RLE, NV intact Neuro: nonfocal, patient AA&O x 4, speech intact, left facial droop from prior CVA, moving all extremities on command, mildly decreased strength in LUE Results & Data ([facility]) Vital Signs (Past 12 Hours) Vital Signs Temp Pulse Resp BP Pulse Ox 05/23/21 18:30 84 17 134/80 98 05/23/21 18:00 81 21 96 05/23/21 17:30 98 H 19 05/23/21 17:00 105 H 15 120/84 94 05/23/21 16:37 57 H 05/23/21 16:00 91 H 21 118/88 05/23/21 15:30 82 16 129/67 05/23/21 15:00 93 H 15 98 05/23/21 14:30 84 22 129/67 97 05/23/21 14:00 100 H 19 97 05/23/21 13:30 98 H 22 135/70 97 05/23/21 13:04 95 H 18 99 05/23/21 12:39 36.9 C 103 H 18 132/59 L 98 Laboratory Results Laboratory Results WBC 11.20 K/uL (4.8-10.8) H 05/23/21 13:45 RBC 3.76 M/uL (4.2-5.4) L 05/23/21 13:45 Hgb 11.6 g/dL (12.0-16.0) L 05/23/21 13:45 Hct 33.8 % (37-47) L 05/23/21 13:45 MCV 89.9 fL (80-100) 05/23/21 13:45 MCH 30.9 pg (25-34) 05/23/21 13:45 MCHC 34.3 g/dL (32-36) 05/23/21 13:45 RDW Std Deviation 42.2 fL (36.4-46.3) 05/23/21 13:45 RDW Coeff of Hernan 12.8 % (11.5-14.5) 05/23/21 13:45 Plt Count 332 K/uL (130-400) 05/23/21 13:45 MPV 8.8 fL (7.4-10.4) 05/23/21 13:45 Immature Gran % (Auto) 0.1 % 05/23/21 13:45 Neut % (Auto) 76.0 % 05/23/21 13:45 Lymph % (Auto) 13.7 % 05/23/21 13:45 [place] % (Auto) 9.6 % 05/23/21 13:45 Eos % (Auto) 0.3 % 05/23/21 13:45 Baso % (Auto) 0.3 % 05/23/21 13:45 Neut # (Auto) 8.53 K/uL (1.4-6.5) H 05/23/21 13:45 Lymph # (Auto) 1.53 K/uL (1.2-3.4) 05/23/21 13:45 [place] # (Auto) 1.07 K/uL (0.11-0.59) H 05/23/21 13:45 Eos # (Auto) 0.03 K/uL (0-0.5) 05/23/21 13:45 Baso # (Auto) 0.03 K/uL (0-0.2) 05/23/21 13:45 Immature Gran # (Auto) 0.01 K/uL (0.00-0.02) 05/23/21 13:45 ESR 41 mm/hr (0-30) H 05/23/21 13:45 Sodium 131 mmol/L (136-145) L 05/23/21 19:26 Potassium 3.2 mmol/L (3.5-5.1) L 05/23/21 19:26 Chloride 99 mmol/L (98-107) 05/23/21 19:26 Carbon Dioxide 23 mmol/L (21-32) 05/23/21 19:26 Anion Gap 10.0 (3-11) 05/23/21 19:26 BUN 12 mg/dl (7-18) 05/23/21 19:26 Creatinine 1.12 mg/dl (0.6-1.2) 05/23/21 19:26 Est Cr Clr Drug Dosing 38.1 ml/min 05/23/21 19:26 Est GFR ( Amer) 55.6 ml/min 05/23/21 19:26 Est GFR (Non-Af Amer) 48.0 ml/min 05/23/21 19:26 BUN/Creatinine Ratio 10.3 (10-20) 05/23/21 19:26 Glucose 108 mg/dl (70-99) H 05/23/21 19:26 Lactate 1.9 mmol/L (0.4-2.0) 05/23/21 13:45 Calcium 9.7 mg/dl (8.5-10.1) 05/23/21 19:26 Total Bilirubin 0.8 mg/dl (0.2-1) 05/23/21 13:45 AST 57 U/L (15-37) H 05/23/21 13:45 ALT 36 (12-78) 05/23/21 13:45 Alkaline Phosphatase 93 U/L (45-117) 05/23/21 13:45 C-Reactive Protein 5.67 mg/dl (0-0.29) H 05/23/21 13:45 Total Protein 6.9 gm/dl (6.4-8.2) 05/23/21 13:45 Albumin 3.1 gm/dl (3.4-5.0) L 05/23/21 13:45 Globulin 3.8 gm/dl (2.5-4.0) 05/23/21 13:45 Albumin/Globulin Ratio 0.8 (0.9-2) L 05/23/21 13:45 SARS-CoV-2, RNA, NAAT NEGATIVE (NEGATIVE) 05/23/21 17:00 Impressions Knee X-Ray 05/23/21 13:21 XR knee LT 3V HISTORY: 76 years-old Female recent replacement, infection, pain [knee total joint arthroplasty COMPARISON: Left knee radiographs 06/09/2019 TECHNIQUE: 3 views of the left knee FINDINGS: Left knee total joint arthroplasty with patellar resurfacing. Anterior midline skin christophe are noted along with a surgical drainage catheter versus catheter fragment measuring 3 cm projected along the inferior margin of the patella on the lateral film. Overlying gauze material is present. Suspected small joint effusion with mild circumferential soft tissue prominence. IMPRESSION: Left knee total joint arthroplasty and patellar resurfacing with anterior skin christophe. There is a 3 cm catheter fragment projected over the inferior margin of the patella suggestive of a foreign body. ACT 112: Negative or not required by law. The above report was generated using voice recognition software. It may contain grammatical, syntax or spelling errors. Electronically signed by: Alex Nesbitt M.D. 05/23/2021 2:05 PM PG Care Time/CCT Total # of Minutes Spent Total Time Spent with Patient: Total time spent is greater than 50% in coordination of care (as documented) at patient's floor/unit and/or counseling patient: Coding Level of Care Code INT OBSERVATION CARE 70M LVL 3 Diagnoses Ambulatory dysfunction R26.2 Status post left knee replacement Z96.652 Leg muscle spasm M62.838 Hypothyroidism E03.9 HTN (hypertension) I10 Atrial fibrillation I48.19 Atrial fibrillation type: persistent (not longstanding) Complete heart block I44.2 (1) Atrial fibrillation Atrial fibrillation type: persistent (not longstanding) Qualified Code(s): I48.19 - Other persistent atrial fibrillation
[2021-05-23] MEDS: oxyCODONE HCL IR 5 MG TAB (IMMEDIATE RELEASE) PO PRN (21:07)
[2021-05-23] MEDS ORDERED: POTASSIUM CHLORIDE CRTAB 20 MEQ TABCR PO STA (21:14)
[2021-05-23] MEDS: DABIGATRAN ETEXILATE 75 MG CAP PO SCH (21:54)
[2021-05-23] MEDS: CHOLECALCIFEROL 1,000 UNITS 25 MCG TAB PO SCH (21:54)
[2021-05-23] MEDS: CYCLOBENZAPRINE HCL 5 MG TAB PO PRN (21:54)
[2021-05-23] MEDS: SODIUM CHLORIDE 0.9% 1000ML 1,000 ML IV SCH (21:55)
[2021-05-24 05:41] LABS: Creatinine Clr Calc Pharmacy 49.1 ml/min; Est GFR (African American) 75.5 ml/min; Est GFR (Non-African American) 65.2 ml/min
[2021-05-24 05:51] LABS: Thyroid Stimulating Hormone 4.67 uIu/ml (0.300-4.500)
[2021-05-24] MEDS: oxyCODONE HCL IR 5 MG TAB (IMMEDIATE RELEASE) PO PRN ×2 (05:52→10:12)
[2021-05-24] MEDS: VANCOMYCIN HCL 1,000 MG in SODIUM CHLORIDE 0.9% 250 ML IV SCH (05:53)
[2021-05-24 06:04] LABS: T4 Free Thyroxine 1.68 ng/dl (0.8-1.6)
[2021-05-24 06:46] LABS: Appearance Urine Clear (Clear); Bilirubin Urine Negative (Negative); Blood Urine Negative (Negative); Color Urine Yellow; Glucose Urine UA Negative (Negative); Ketones Urine 1+ (Negative); Leukocyte Esterase Urine Negative (Negative); Nitrite Urine Negative (Negative); Protein Urine Negative (Negative); Specific Gravity Urine 1.011 (1.000-1.030); Urobilinogen Urine Negative (Negative); pH Urine 6.5 (4.5-7.5)
[2021-05-24] MEDS: DABIGATRAN ETEXILATE 75 MG CAP PO SCH ×2 (10:01→21:30)
[2021-05-24] MEDS: DIGOXIN 0.125 MG TAB PO SCH (10:02)
[2021-05-24] MEDS: VERAPAMIL HCL 180 MG TABCR PO SCH (10:04)
[2021-05-24] MEDS: TRIAMTERENE/HCTZ 37.5/25MG CAP PO SCH (10:04)
--- NOTE | 2021-05-24 10:08 | Pharmacy Report ---
Pharmacy Abx Dose Short Note - Date of Service May 24, 2021 - Assessment & Plan Assessment 76 year old F receiving vancomycin for wound dehiscence and drainage (continued from outpatient regimen). * s/p left knee total arthroplasty on 04/15/21. Pt returned to the OR on 05/09/21 for irrigation due to concerns of post operative infection and was then starting on daily vancomycin IV. Surgery was told that patient had a "good trough" level drawn on 05/20/21. Review of lab records show a level of 14.7 mcg/mL on 05/20. I am unsure of the timing of this level in relation to dosing. Plan Continue home regimen of vancomycin 1000 mg IV q24h Vancomycin level ordered for 05/26 @ 0630 Pharmacy will continue to follow and will adjust dose/frequency as necessary. Thank you.
[2021-05-24] MEDS: CYCLOBENZAPRINE HCL 5 MG TAB PO PRN (10:12)
[2021-05-24] MEDS: ACETAMINOPHEN 500 MG TAB PO PRN (11:36)
--- NOTE | 2021-05-24 13:23 | Hospitalist Progress Note ---
Date of Service May 24, 2021 Assessment & Plan (1) Ambulatory dysfunction: Plan: 76yo female presenting with ambulatory dysfunction, worsening pain and spasm of LLE. Patient has been admitted to the Orthopedic Surgery service. 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 as the patient is doing well overnight no changes at this time. Repeat lab work in a.m. PT/OT evaluating (2) Status post left knee replacement: Plan: Patient is s/p left knee total arthroplasty performed by Dr. Matson at [facility] on 04/15/21. Concern for post-op infection as patient had some wound dehiscence and drainage. She returned to the OR on 05/09/21 for irrigation and has been on Vancomycin since. Elevated ESR and CRP. Patient is afebrile, HD stable, non-toxic in appearance. She does have a mildly elevated WBC count to 11.2 with neutrophil predominance. XR with possible foreign body present -Continue IV Vancomycin, managed by primary team along with pharmacy -Remainder of management per primary team - ?utility of arthrocentesis to assist with antibiotic management. Does not seem to be plans to return patient to the OR as of yet. If patient is to go to the OR she should have intraoperative cultures performed to assist with antibiotic management. continue follow-up with Orthopedics (3) Leg muscle spasm: Plan: As above -Continue Flexeril PRN -Heat -Gentle IVF and electrolyte repletion as needed no reported additional symptoms today (4) Hypothyroidism: Plan: Patient states she is no longer on thyroid medication. Last TSH on record from 01/21/21 normal at 3.74 TSH slightly elevated 4.67, Plan on repeat TSH with T4 and T3 (5) HTN (hypertension): Plan: Blood pressure stable and acceptable -Pain management with Tylenol PRN, Oxycodone and Dilaudid PRN per primary team -Continue Triamterene/HCTZ -Continue Verapamil -Continue to monitor (6) Atrial fibrillation: Plan: Rate controlled. Patient anticoagulated on Pradaxa -Continue Digoxin -Continue Verapamil -Continue Pradaxa for now - if plans for OR will hold blood thinner (7) Complete heart block: Plan: Patient with pacer in place. No acute issues (8) Hypokalemia: Plan: recheck labs in a.m. Eating normal diet Considerations for supplementation Admission and Anticipated Discharge Date Admission Date: May 23, 2021 Subjective no significant changes overnight Pain is controlled Sitting comfortably eating breakfast No fevers chills nausea vomiting Her left knee remains in stabilizer Review of Systems Constitutional: no fever and no chills Respiratory: no cough, no chest congestion, no dyspnea and no wheezing Cardiovascular: no chest pain, no palpitations and no edema Gastrointestinal: no abdominal pain, no heartburn, no nausea, no vomiting and no change in bowel habits Physical Exam Physical Exam: Constitutional: WD/WN, vitals as above Respiratory: Effort normal, CTA B/L CV: IIR, no murmur, no edema Abdomen: normal bowel sounds, soft, nontender, no hepatosplenomegaly musculoskeletal defer to Orthopedics Results & Data Results & Data ([facility]) Vital Signs (Past 12 Hours) Vital Signs Temp Pulse Pulse Resp BP Pulse Ox 05/24/21 11:05 36.8 C 102 H 16 126/50 L 96 05/24/21 10:02 86 05/24/21 08:03 36.6 C 99 H 12 109/65 94 Laboratory Results Laboratory Results - last 24 hr 05/23/21 05/23/21 05/23/21 13:45 13:45 13:45 WBC 11.20 H RBC 3.76 L Hgb 11.6 L Hct 33.8 L MCV 89.9 MCH 30.9 MCHC 34.3 RDW Std Deviation 42.2 RDW Coeff of Hernan 12.8 Plt Count 332 MPV 8.8 Immature Gran % (Auto) 0.1 Neut % (Auto) 76.0 Lymph % (Auto) 13.7 [place] % (Auto) 9.6 Eos % (Auto) 0.3 Baso % (Auto) 0.3 Neut # (Auto) 8.53 H Lymph # (Auto) 1.53 [place] # (Auto) 1.07 H Eos # (Auto) 0.03 Baso # (Auto) 0.03 Immature Gran # (Auto) 0.01 ESR 41 H Sodium 131 L Potassium 3.5 Chloride 99 Carbon Dioxide 23 Anion Gap 9.0 BUN 13 Creatinine 0.99 Est Cr Clr Drug Dosing 43.1 Est GFR ( Amer) 64.6 Est GFR (Non-Af Amer) 55.7 BUN/Creatinine Ratio 12.6 Glucose 121 H Lactate Calcium 9.6 Total Bilirubin 0.8 AST 57 H ALT 36 Alkaline Phosphatase 93 C-Reactive Protein 5.67 H Total Protein 6.9 Albumin 3.1 L Globulin 3.8 Albumin/Globulin Ratio 0.8 L TSH Free T4 Urine Color Urine Appearance Urine pH Ur Specific Martin Urine Protein Urine Glucose (UA) Urine Ketones Urine Blood Urine Nitrite Urine Bilirubin Urine Urobilinogen Ur Leukocyte Esterase Random Vancomycin SARS-CoV-2, RNA, NAAT 05/23/21 05/23/21 05/23/21 13:45 17:00 19:26 WBC RBC Hgb Hct MCV MCH MCHC RDW Std Deviation RDW Coeff of Hernan Plt Count MPV Immature Gran % (Auto) Neut % (Auto) Lymph % (Auto) [place] % (Auto) Eos % (Auto) Baso % (Auto) Neut # (Auto) Lymph # (Auto) [place] # (Auto) Eos # (Auto) Baso # (Auto) Immature Gran # (Auto) ESR Sodium 131 L Potassium 3.2 L Chloride 99 Carbon Dioxide 23 Anion Gap 10.0 BUN 12 Creatinine 1.12 Est Cr Clr Drug Dosing 38.1 Est GFR ( Amer) 55.6 Est GFR (Non-Af Amer) 48.0 BUN/Creatinine Ratio 10.3 Glucose 108 H Lactate 1.9 Calcium 9.7 Total Bilirubin AST ALT Alkaline Phosphatase C-Reactive Protein Total Protein Albumin Globulin Albumin/Globulin Ratio TSH Free T4 Urine Color Urine Appearance Urine pH Ur Specific Martin Urine Protein Urine Glucose (UA) Urine Ketones Urine Blood Urine Nitrite Urine Bilirubin Urine Urobilinogen Ur Leukocyte Esterase Random Vancomycin SARS-CoV-2, RNA, NAAT NEGATIVE 05/23/21 05/24/21 05/24/21 20:10 04:51 06:15 WBC RBC Hgb Hct MCV MCH MCHC RDW Std Deviation RDW Coeff of Hernan Plt Count MPV Immature Gran % (Auto) Neut % (Auto) Lymph % (Auto) [place] % (Auto) Eos % (Auto) Baso % (Auto) Neut # (Auto) Lymph # (Auto) [place] # (Auto) Eos # (Auto) Baso # (Auto) Immature Gran # (Auto) ESR Sodium Potassium Chloride Carbon Dioxide Anion Gap BUN Creatinine 0.87 Est Cr Clr Drug Dosing 49.1 Est GFR ( Amer) 75.5 Est GFR (Non-Af Amer) 65.2 BUN/Creatinine Ratio Glucose Lactate Calcium Total Bilirubin AST ALT Alkaline Phosphatase C-Reactive Protein Total Protein Albumin Globulin Albumin/Globulin Ratio TSH 4.670 H Free T4 1.68 H Urine Color Yellow Urine Appearance Clear Urine pH 6.5 Ur Specific Martin 1.011 Urine Protein Negative Urine Glucose (UA) Negative Urine Ketones 1+ H Urine Blood Negative Urine Nitrite Negative Urine Bilirubin Negative Urine Urobilinogen Negative Ur Leukocyte Esterase Negative Random Vancomycin 19.2 SARS-CoV-2, RNA, NAAT Diagnostic Findings Knee X-Ray 05/23/21 13:21 XR knee LT 3V HISTORY: 76 years-old Female recent replacement, infection, pain [knee total joint arthroplasty COMPARISON: Left knee radiographs 06/09/2019 TECHNIQUE: 3 views of the left knee FINDINGS: Left knee total joint arthroplasty with patellar resurfacing. Anterior midline skin christophe are noted along with a surgical drainage catheter versus catheter fragment measuring 3 cm projected along the inferior margin of the patella on the lateral film. Overlying gauze material is present. Suspected small joint effusion with mild circumferential soft tissue prominence. IMPRESSION: Left knee total joint arthroplasty and patellar resurfacing with anterior skin christophe. There is a 3 cm catheter fragment projected over the inferior margin of the patella suggestive of a foreign body. ACT 112: Negative or not required by law. The above report was generated using voice recognition software. It may contain grammatical, syntax or spelling errors. Electronically signed by: Alex Nesbitt M.D. 05/23/2021 2:05 PM PG Care Time/CCT Total # of Minutes Spent Total Time Spent with Patient: Total time spent is greater than 50% in coordination of care (as documented) at patient's floor/unit and/or counseling patient: Coding Level of Care Code 67275 Subseq Hosp Care Lvl 2 Diagnoses Ambulatory dysfunction R26.2 Status post left knee replacement Z96.652 Leg muscle spasm M62.838 Hypothyroidism E03.9 HTN (hypertension) I10 Atrial fibrillation I48.19 Atrial fibrillation type: persistent (not longstanding) Complete heart block I44.2 Hypokalemia E87.6 (1) Atrial fibrillation Atrial fibrillation type: persistent (not longstanding) Qualified Code(s): I48.19 - Other persistent atrial fibrillation
[2021-05-24] MEDS: HYDROmorphone INJ 0.5 MG/0.5 ML SYR IV PRN ×2 (14:22→18:33)
--- NOTE | 2021-05-24 17:53 | Orthopedic Progress Note ---
Date of Service May 24, 2021 Assessment & Plan (1) Ambulatory dysfunction: Plan: Ambulation dysfunction likely secondary to repeat retinacular tear and muscle spasms. Orthotics to place the patient in a hinged knee orthosis with limitations of 0 to 40 degrees. PT/OT protocols. Continue to use immobilizer or hinged knee brace at all times. Weightbearing as tolerated. DVT prophylaxis-patient is currently on dabigatran twice daily, SCDs Pain management as written. DC planning-patient will need to try and increase her ambulation abilities. I have spoken to Dr. Ti Matson about the situation. With her likely tear of her medial retinaculum, depending on the severity of the tear, the patient may need further surgery down the road. Dr. Matson would like to do this at another facility if possible. Vancomycin was started secondary to her dehiscence and per Dr. Matson is prophylaxis for up to 4 weeks. No cultures done at the time of the repair of the wound dehiscence. Possible need for [facility] if surgery is to be held off. Admission and Anticipated Discharge Date Admission Date: May 23, 2021 Subjective Patient sitting up in her bed awake and alert. She appears comfortable. She is currently wearing her immobilizer at this time. She appears to have the knee in approximately 20 degrees of flexion even in the immobilizer. She states she has not been up with PT yet. She did not have much in the way of spasms last night. Pain is currently controlled. Physical Exam Physical Exam: Immobilizer taken off. Dressing changed. She had minimal dressing that I put on last night. Wound remains intact. She continues to have a small area of darkened erythema over the area of the patella but I cannot express any drainage at this time. Calves are soft nontender. Negative Homans exam. She is able to relax the knee to where she gets about 10 degree flexion remaining. She is unable to do a straight leg raise with the left lower extremity. Even with helping her do a straight leg raise that she is unable to hold a straight leg raise on her own. Wound redressed and immobilizer replaced. Results & Data ([facility]) Vital Signs (Past 12 Hours) Vital Signs Temp Pulse Pulse Resp BP Pulse Ox 05/24/21 15:37 36.6 C 77 12 106/64 96 05/24/21 11:05 36.8 C 102 H 16 126/50 L 96 05/24/21 10:02 86 05/24/21 08:03 36.6 C 99 H 12 109/65 94
[2021-05-24] MEDS: CHOLECALCIFEROL 1,000 UNITS 25 MCG TAB PO SCH (21:30)
[2021-05-24] MEDS: SODIUM CHLORIDE 0.9% 1000ML 1,000 ML IV SCH (22:38)
[2021-05-25] MEDS: HYDROmorphone INJ 0.5 MG/0.5 ML SYR IV PRN ×2 (02:38→17:15)
[2021-05-25] MEDS: VANCOMYCIN HCL 1,000 MG in SODIUM CHLORIDE 0.9% 250 ML IV SCH (06:00)
[2021-05-25] MEDS ORDERED: VANCOMYCIN TROUGH ONE (06:30)
[2021-05-25 06:35] LABS: Basophils # (auto) 0.05 K/uL (0-0.2); Basophils % (auto) 0.6 %; Eosinophils # (auto) 0.32 K/uL (0-0.5); Hematocrit (blood only) 33.8 % (37-47); Hemoglobin 11.2 g/dL (12.0-16.0); Immature Granulocytes # (auto) 0.01 K/uL (0.00-0.02); Immature Granulocytes % (auto) 0.1 %; Mean Corpuscular Hemoglobin 29.8 pg (25-34); Mean Corpuscular Hgb Conc 33.1 g/dL (32-36); Mean Corpuscular Volume 89.9 fL (80-100); Mean Platelet Volume 8.8 fL (7.4-10.4); Monocytes # (auto) 0.72 K/uL (0.11-0.59); Neutrophils # (auto) 5.72 K/uL (1.4-6.5); Neutrophils % (auto) 71.3 %; Platelet Count 327 K/uL (130-400); RDW Coefficient of Variation 12.9 % (11.5-14.5); RDW Standard Deviation 42.1 fL (36.4-46.3); Red Blood Count 3.76 M/uL (4.2-5.4); White Blood Count 8.02 K/uL (4.8-10.8)
[2021-05-25 07:09] LABS: Albumin Level 2.7 gm/dl (3.4-5.0); BUN Creatinine Ratio 15.2 (10-20); Calcium 9.4 mg/dl (8.5-10.1); Creatinine Clr Calc Pharmacy 38.4 ml/min; Est GFR (African American) 63.8 ml/min; Est GFR (Non-African American) 55.1 ml/min; Potassium 3.5 mmol/L (3.5-5.1)
[2021-05-25 07:19] LABS: Albumin Globulin Ratio 0.8 (0.9-2); Bilirubin,Total 0.6 mg/dl (0.2-1); Globulin 3.4 gm/dl (2.5-4.0); Thyroid Stimulating Hormone 4.4 uIu/ml (0.300-4.500); Total Protein 6.1 gm/dl (6.4-8.2)
[2021-05-25] MEDS: DABIGATRAN ETEXILATE 75 MG CAP PO SCH ×2 (08:24→21:03)
[2021-05-25] MEDS: DIGOXIN 0.125 MG TAB PO SCH (08:26)
[2021-05-25] MEDS: VERAPAMIL HCL 180 MG TABCR PO SCH (08:26)
[2021-05-25] MEDS: TRIAMTERENE/HCTZ 37.5/25MG CAP PO SCH (08:26)
[2021-05-25] MEDS: NYSTATIN OINT 15 GM TUBE EXT SCH ×3 (08:27→21:04)
[2021-05-25] MEDS ORDERED: BACLOFEN 10 MG TAB PO STA (12:08)
--- NOTE | 2021-05-25 12:13 | Orthopedic Progress Note ---
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 Hinged knee brace on the left knee that is locked at 0 degrees to 40 degrees. PT/OT protocols. Continue to use immobilizer or hinged knee brace at all times. Weightbearing as tolerated. DVT prophylaxis-patient is currently on dabigatran twice daily, SCDs Pain management as written. DC planning-patient will need to try and increase her ambulation abilities. We discussed being able to discharge home but she will need to be able to ambulate significantly more than she has now. If she is unable to increase her ambulation, she may need to consider transfer to a rehabilitation center. We also discussed that she will probably require another surgery to repair the probable retinacular tear as well as remove what appears to be part of the Hemovac drain in the knee joint. She is understandably reluctant to have another surgery but we discussed that it may be necessary for her to regain normal ambulation. (2) Foreign body of left knee: Plan: On lateral view of x-ray there appears to be part of Hemovac drain posterior to the patella (3) Status post left knee replacement: Admission and Anticipated Discharge Date Admission Date: May 23, 2021 Subjective Patient sitting up in her bed awake and alert. She appears comfortable. She is currently wearing her hinged knee brace at this time. She appears to have the knee in approximately 40 degrees of flexion. The patient did work with PT shortly after her visit. Physical therapy felt that she was having significant difficulties with ambulation because of spasm and contracture of her hip flexors as well as her left ankle vero into plantarflexion. Overall, her pain has been controlled. Physical Exam Constitutional: WD/WN, vitals as above Musculoskeletal: Knee: + skin erythema (Minimal at the central aspect of the left knee incision with mild serous dr), + surgical incision (Anterior left knee well approximated with christophe in place) and + limited ROM of knee (Extension of left knee difficult with left knee flexion contracture); no ecchymosis Psychiatric: A+Ox3, euthymic affect Speech: normal rate/rhythm/volume of speech Results & Data ([facility]) Vital Signs (Past 12 Hours) Vital Signs Temp Pulse Pulse Resp BP Pulse Ox 05/25/21 08:26 72 05/25/21 07:42 36.8 C 72 18 120/75 94
--- NOTE | 2021-05-25 12:26 | Hospitalist Progress Note ---
Date of Service May 25, 2021 Assessment & Plan (1) Ambulatory dysfunction: Plan: 76yo female presenting with ambulatory dysfunction, worsening pain and spasm of LLE. Patient has been admitted to the Orthopedic Surgery service. There is some concern for left prosthetic joint infection given wound dehiscence and she is presently on IV Vancomycin Vancomycin continued from outpatient as had returned to OR 05/09 for irrigation (initial surgery 04/15/[address] Matson at [facility]) and has been on since that time Remains on Vancomycin --> ?consideration for de-escalation if no prior cx MRSA or if taken to OR would obtain cx to guide therapy. Consider consultation with ID to guide therapy/recs for CRP levels to switch to chronic oral suppressive therapy if thoughts for infected prosthesis if no plans for exchange if there is concern for continued infection. ESR/CRP elevated 41/5.67 on admission WBC now wnl PT/OT consulted --> rec SNF at discharge. CM to follow (2) Status post left knee replacement: Plan: Patient is s/p left knee total arthroplasty performed by Dr. Matson at [facility] on 04/15/21. Concern for post-op infection as patient had some wound dehiscence and drainage. She returned to the OR on 05/09/21 for irrigation and has been on Vancomycin since. Elevated ESR and CRP on admit and would follow in next day or two to ensure improvement . Patient is afebrile, HD stable, non-toxic in appearance. She does have a mildly elevated WBC count to 11.2 with neutrophil predominance --> now wnl. Has been afebrile XR with possible foreign body present -- defer management/further investigation to orthopedics to see if needs to return to the OR for further eval. Would obtain cx from OR to assist with abx management if done/possible de-escalation from vancomycin if no prior cx/concern for MRSA Continued follow up with orthopedics at discharge (3) Leg muscle spasm: Plan: As above -Continue Flexeril PRN --> got doses past 2 days, not gotten this morning and reporting continued spasms --> asked RN to administer 10mg baclofen x 1 now Mag 2.1 on AM labs no hx RLS but could consider checking ferritin level in AM but suspect given will be elevated in setting of infxn Monitor response, continue if effective (4) Hypothyroidism: Plan: Patient states she is no longer on thyroid medication. Last TSH on record from 01/21/21 normal at 3.74 TSH slightly elevated 4.67, Plan on repeat TSH with T4 and T3 --> repeat TSH wnl, T3/4 pending (5) HTN (hypertension): Plan: Blood pressure stable and acceptable 120/75 -Pain management with Tylenol PRN, Oxycodone and Dilaudid PRN per primary team -Continue Triamterene/HCTZ, verapamil (also on for afib) -Continue to monitor (6) Atrial fibrillation: Plan: Rate controlled. Patient anticoagulated on Pradaxa -Continue Digoxin, verapamil -Continue Pradaxa for now - if plans for OR would HOLD (7) Complete heart block: Plan: Patient with pacer in place. No acute issues (8) Hypokalemia: Plan: previously 3.2 -- repeat 3.5 mag wnl ?if from her HCTZ use/lack of PO intake previously Continue to monitor labs Plan: continued inpatient stay baclofen x 1 now for leg spasm Remains on Vancomycin --> consideration for de-escalation if no prior cx MRSA or if taken to OR would obtain cx to guide therapy. Consider consultation with ID to guide therapy/recs for CRP levels to switch to chronic oral suppressive therapy if thoughts for infected prosthesis if no plans for exchange if there is concern for continued infection Will need continued f/u orthopedics at discharge, continue immobilizer PT/OT with recs for SNF --> CM to follow Admission and Anticipated Discharge Date Admission Date: May 23, 2021 Subjective patient evaluated this afternoon. Sleeping upon entry to room. had been up with therapy earlier today and was able to utilize immobilizer for support pain controlled, somewhat with what has been ordered and not gotten anything since this morning having some posterior R thigh leg spasms -- will order dose of baclofen x 1 to see if effective. Instructed to ask if pain not improved for additional medication. No fever , chills, chest pain, shortness of breath, n/v/adb pain at this time. Review of Systems Review of Systems: All systems reviewed & are unremarkable except as noted in HPI & below Physical Exam Physical Exam: Constitutional: WD/WN, sleeping in bed upon arrival, no acute distress eyes - pupils equal, reactive slightly dry mm, trachea midline without deviation resp: CTAB, no c/r/w, 94% on RA CV: irregularly irregular, no m/r/g, calves non-tender to palpation MSK: moves all extremities -- L knee in immobilizer/brace with underlying LIVIER wrap, pulses palpable b/l LE GI: +BS, soft, nontender Psych: alert, oriented, cooperative and calm Results & Data Results & Data ([facility]) Vital Signs (Past 12 Hours) Vital Signs Temp Pulse Pulse Resp BP Pulse Ox 05/25/21 08:26 72 05/25/21 07:42 36.8 C 72 18 120/75 94 Laboratory Results 05/25/21 05/25/21 05/25/21 Range/Units 06:19 06:19 06:19 WBC 8.02 (4.8-10.8) K/uL RBC 3.76 L (4.2-5.4) M/uL Hgb 11.2 L (12.0-16.0) g/dL Hct 33.8 L (37-47) % MCV 89.9 (80-100) fL MCH 29.8 (25-34) pg MCHC 33.1 (32-36) g/dL RDW Std Deviation 42.1 (36.4-46.3) fL RDW Coeff of Ehrnan 12.9 (11.5-14.5) % Plt Count 327 (130-400) K/uL MPV 8.8 (7.4-10.4) fL Immature Gran % (Auto) 0.1 % Neut % (Auto) 71.3 % Lymph % (Auto) 15.0 % Brooke % (Auto) 9.0 % Eos % (Auto) 4.0 % Baso % (Auto) 0.6 % Neut # (Auto) 5.72 (1.4-6.5) K/uL Lymph # (Auto) 1.20 (1.2-3.4) K/uL [place]oke # (Auto) 0.72 H (0.11-0.59) K/uL Eos # (Auto) 0.32 (0-0.5) K/uL Baso # (Auto) 0.05 (0-0.2) K/uL Immature Gran # (Auto) 0.01 (0.00-0.02) K/uL Sodium (136-145) mmol/L Potassium (3.5-5.1) mmol/L Chloride (98-107) mmol/L Carbon Dioxide (21-32) mmol/L Anion Gap (3-11) BUN (7-18) mg/dl Creatinine (0.6-1.2) mg/dl Est Cr Clr Drug Dosing ml/min Est GFR ( Amer) ml/min Est GFR (Non-Af Amer) ml/min BUN/Creatinine Ratio (10-20) Glucose (70-99) mg/dl Calcium (8.5-10.1) mg/dl Magnesium 2.1 (1.8-2.4) mg/dl Total Bilirubin (0.2-1) mg/dl AST (15-37) U/L ALT (12-78) Alkaline Phosphatase (45-117) U/L Total Protein (6.4-8.2) gm/dl Albumin (3.4-5.0) gm/dl Globulin (2.5-4.0) gm/dl Albumin/Globulin Ratio (0.9-2) TSH (0.300-4.500) uIu/ml Free T3 Pending 05/25/21 Range/Units 06:19 WBC (4.8-10.8) K/uL RBC (4.2-5.4) M/uL Hgb (12.0-16.0) g/dL Hct (37-47) % MCV (80-100) fL MCH (25-34) pg MCHC (32-36) g/dL RDW Std Deviation (36.4-46.3) fL RDW Coeff of Hernan (11.5-14.5) % Plt Count (130-400) K/uL MPV (7.4-10.4) fL Immature Gran % (Auto) % Neut % (Auto) % Lymph % (Auto) % [place]oke % (Auto) % Eos % (Auto) % Baso % (Auto) % Neut # (Auto) (1.4-6.5) K/uL Lymph # (Auto) (1.2-3.4) K/uL Brooke # (Auto) (0.11-0.59) K/uL Eos # (Auto) (0-0.5) K/uL Baso # (Auto) (0-0.2) K/uL Immature Gran # (Auto) (0.00-0.02) K/uL Sodium 134 L (136-145) mmol/L Potassium 3.5 (3.5-5.1) mmol/L Chloride 100 (98-107) mmol/L Carbon Dioxide 25 (21-32) mmol/L Anion Gap 9.0 (3-11) BUN 15 (7-18) mg/dl Creatinine 1.00 (0.6-1.2) mg/dl Est Cr Clr Drug Dosing 38.4 ml/min Est GFR ( Amer) 63.8 ml/min Est GFR (Non-Af Amer) 55.1 ml/min BUN/Creatinine Ratio 15.2 (10-20) Glucose 97 (70-99) mg/dl Calcium 9.4 (8.5-10.1) mg/dl Magnesium (1.8-2.4) mg/dl Total Bilirubin 0.6 (0.2-1) mg/dl AST 59 H (15-37) U/L ALT 45 (12-78) Alkaline Phosphatase 83 (45-117) U/L Total Protein 6.1 L (6.4-8.2) gm/dl Albumin 2.7 L (3.4-5.0) gm/dl Globulin 3.4 (2.5-4.0) gm/dl Albumin/Globulin Ratio 0.8 L (0.9-2) TSH 4.400 (0.300-4.500) uIu/ml Free T3 PG Care Time/CCT Total # of Minutes Spent Total Time Spent with Patient: Total time spent is greater than 50% in coordination of care (as documented) at patient's floor/unit and/or counseling patient: Coding Level of Care Code 85836 Subseq Hosp Care Lvl 2 Diagnoses Ambulatory dysfunction R26.2 Status post left knee replacement Z96.652 Leg muscle spasm M62.838 Hypothyroidism E03.9 HTN (hypertension) I10 Atrial fibrillation I48.19 Atrial fibrillation type: persistent (not longstanding) Complete heart block I44.2 Hypokalemia E87.6 (1) Atrial fibrillation Atrial fibrillation type: persistent (not longstanding) Qualified Code(s): I48.19 - Other persistent atrial fibrillation
[2021-05-25] MEDS: CYCLOBENZAPRINE HCL 5 MG TAB PO PRN (14:54)
[2021-05-25] MEDS: oxyCODONE HCL IR 5 MG TAB (IMMEDIATE RELEASE) PO PRN (17:38)
[2021-05-25] MEDS: SODIUM CHLORIDE 0.9% 1000ML 1,000 ML IV SCH (21:03)
[2021-05-25] MEDS: CHOLECALCIFEROL 1,000 UNITS 25 MCG TAB PO SCH (21:03)
[2021-05-26 06:15] LABS: Basophils # (auto) 0.07 K/uL (0-0.2); Basophils % (auto) 0.9 %; Eosinophils # (auto) 0.36 K/uL (0-0.5); Eosinophils % (auto) 4.4 %; Hematocrit (blood only) 35.2 % (37-47); Hemoglobin 11.9 g/dL (12.0-16.0); Immature Granulocytes # (auto) 0.02 K/uL (0.00-0.02); Immature Granulocytes % (auto) 0.2 %; Lymphocytes # (auto) 1.48 K/uL (1.2-3.4); Mean Corpuscular Hemoglobin 30.2 pg (25-34); Mean Corpuscular Hgb Conc 33.8 g/dL (32-36); Mean Corpuscular Volume 89.3 fL (80-100); Mean Platelet Volume 8.8 fL (7.4-10.4); Monocytes # (auto) 0.88 K/uL (0.11-0.59); Monocytes % (auto) 10.7 %; Neutrophils # (auto) 5.41 K/uL (1.4-6.5); Neutrophils % (auto) 65.8 %; Platelet Count 386 K/uL (130-400); RDW Coefficient of Variation 12.8 % (11.5-14.5); RDW Standard Deviation 41.9 fL (36.4-46.3); Red Blood Count 3.94 M/uL (4.2-5.4); White Blood Count 8.22 K/uL (4.8-10.8)
[2021-05-26] MEDS: VANCOMYCIN HCL 1,000 MG in SODIUM CHLORIDE 0.9% 250 ML IV SCH (06:25)
[2021-05-26] MEDS ORDERED: VANCOMYCIN TROUGH ONE (06:30)
[2021-05-26 06:56] LABS: Albumin Globulin Ratio 0.7 (0.9-2); Albumin Level 2.8 gm/dl (3.4-5.0); Bilirubin,Total 0.6 mg/dl (0.2-1); C Reactive Protein 4.73 mg/dl (0-0.29); Calcium 9.7 mg/dl (8.5-10.1); Creatinine Clr Calc Pharmacy 43.7 ml/min; Est GFR (African American) 74.5 ml/min; Est GFR (Non-African American) 64.3 ml/min; Globulin 3.8 gm/dl (2.5-4.0); Potassium 3.4 mmol/L (3.5-5.1); Total Protein 6.6 gm/dl (6.4-8.2)
[2021-05-26] MEDS ORDERED: POTASSIUM CHLORIDE CRTAB 20 MEQ TABCR PO STA (08:44)
[2021-05-26] MEDS ORDERED: POTASSIUM CHLORIDE 10 MEQ in SODIUM CHLORIDE 0.9% 1000ML 1,000 ML IV SCH (08:45)
--- NOTE | 2021-05-26 08:46 | Hospitalist Progress Note ---
Date of Service May 26, 2021 Assessment & Plan (1) Ambulatory dysfunction: Plan: 76yo female presenting with ambulatory dysfunction, worsening pain and spasm of LLE. Patient has been admitted to the Orthopedic Surgery service. There is some concern for left prosthetic joint infection given wound dehiscence and she is presently on IV Vancomycin Vancomycin continued from outpatient as had returned to OR 05/09 for irrigation (initial surgery 04/15/[address] Matson at [facility]) and has been on since that time Remains on Vancomycin --> ?consideration for de-escalation if no prior cx MRSA or if taken to OR would obtain cx to guide therapy. Consider consultation with ID to guide therapy/recs for CRP levels to switch to chronic oral suppressive therapy if thoughts for infected prosthesis if no plans for exchange if there is concern for continued infection. ESR/CRP elevated 41/5.67 on admission -> CRP improving, suspect ESR lagging behind WBC now wnl, afebrile PT/OT consulted --> rec SNF at discharge. CM to follow. Dispo per orthopedics (2) Status post left knee replacement: Plan: Patient is s/p left knee total arthroplasty performed by Dr. Matson at [facility] on 04/15/21. Concern for post-op infection as patient had some wound dehiscence and drainage. She returned to the OR on 05/09/21 for irrigation and has been on Vancomycin since. Elevated ESR and CRP on admit and would follow in next day or two to ensure improvement Patient is afebrile, HD stable, non-toxic in appearance. She did have a mildly elevated WBC count to 11.2 with neutrophil predominance --> now wnl. Has been afebrile XR with possible foreign body present -- defer management/further investigation to orthopedics to see if needs to return to the OR for further eval. Would obtain cx from OR to assist with abx management if done/possible de-escalation from vancomycin if no prior cx/concern for MRSA Continued follow up with orthopedics at discharge +/- ID/chronic suppressive therapy if no plans for poly/exchange Bowel regimen ordered for constipation --> on bed dyer currently. Miralax at home if this issue occurs. For bony pain --> ca elevated with low albumin however is on HCTZ (expect to account for ~0.5 raise in Ca with this)/triamterene. Held for today given lack of PO intake day prior. Does have hx elevated PTH with normal Vit D and would rec f/u with PCP outpatient for repeat PTH/Vit D levels for further evaluation of a primary hyperparathyroidism. Per PCP note, patient with osteoporosis on DEXA and repeatedly declined prescription drug therapy for this. Prior Vit D 46.3, PTH 88.3 in January 2021 --> On 2000 IU VIt D daily (3) Leg muscle spasm: Plan: As above -Continue Flexeril PRN --> got doses past 2 days, not gotten this morning and reporting continued spasms --> asked RN to administer 10mg baclofen x 1 now Mag 2.1 on AM labs -- repeating for low K today but now without muscle spasm Giving 20meq K (4) Hypothyroidism: Plan: Patient states she is no longer on thyroid medication. Last TSH on record from 01/21/21 normal at 3.74 TSH slightly elevated 4.67, Plan on repeat TSH with T4 and T3 --> repeat TSH wnl, T3 pending but Ft4 slightly elevated at 1.68 and would not start supplementation (5) HTN (hypertension): Plan: BP stable -Pain management with Tylenol PRN, Oxycodone and Dilaudid PRN per primary team -Continue Triamterene/HCTZ, verapamil (also on for afib) --> holding diuretic for today to improve hydration/prevent dehydration and encouraged PO intake. BP stable -Continue to monitor (6) Atrial fibrillation: Plan: Rate controlled. Patient anticoagulated on Pradaxa -Continue Digoxin, verapamil -Continue Pradaxa for now - if plans for OR would HOLD (7) Complete heart block: Plan: Patient with pacer in place. No acute issues (8) Hypokalemia: Plan: previously 3.2 -- repeat 3.5 --> repeat again 3.4 and ordered 20meq PO, but stated she didn't have great PO intake day prior Mag pending, previously wnl Holding diuretic for today, resume in AM if PO intake improved Continue to monitor labs (9) Foreign body of left knee: Plan: will need f/u as above for probable piece of hemovac in joint space as above on vanco, consider poly/exchange/intraop Cx to guide/de-escalate abx therapy (10) Vitamin D deficiency: Plan: hx of and osteoporosis Prior Vit D Mart 46.3, however PTH elevated to 88.3. No clonus or focal deficit, but would rec f/u with PCP at discharge for further investigation ?If an underlying primary hyperparathyroidism, especially given the constip ation/depression/etc (11) Osteoporosis: Plan: on DEXA, declined prescription tx and continued on vit D supplementation Plan: continued inpatient stay PT/OT -- if unable to improve ambulation considering SNF Needs outpt f/u for hyperparathyroidism given prior elevated PTH in January without significant Vit D deficiency Continues on Vanco --> consideration for de-escalation if no prior cx MRSA or if taken to OR would obtain cx to guide therapy. Consider consultation with ID to guide therapy/recs for CRP levels to switch to chronic oral suppressive therapy if thoughts for infected prosthesis if no plans for exchange if there is concern for continued infection Will need continued f/u orthopedics at discharge, continue immobilizer Admission and Anticipated Discharge Date Admission Date: May 23, 2021 Supervising Physician Co-Signing Physician Notes reviewed, case d/w L Butts PAC as above Subjective patient evaluated this morning. doing alright but attempting to have BM. passing gas but on bedpan currently when issues at home typically relieved with miralax -- will order bowel regimen to help her have movement. no nausea or feeling like she needs to vomit baclofen effective yesterday for muscle spasm and none appreciated today and instructed to ask if recurs/needed discussed likely should f/u with ortho for further surgical intervention/poly exchange vs discussing with ortho/ID for chronic immunosuppressive therapy if no exchange scheduled. no fever, chills, chest pain or shortness of beath reported. Review of Systems Review of Systems: All systems reviewed & are unremarkable except as noted in HPI & below Physical Exam Physical Exam: Constitutional: WD/WN, laying on bedpan, no acute distress eyes - pupils equal, reactive slightly dry mm but improved from days prior, trachea midline without deviation resp: CTAB, no c/r/w, 93% on RA CV: irregularly irregular, no m/r/g, calves non-tender to palpation, +PICC line MSK: moves all extremities -- L knee in immobilizer/brace with underlying LIVIER wrap, pulses palpable b/l LE GI: +BS, soft, nontender Psych: alert, oriented, cooperative and calm Results & Data Results & Data ([place]) Vital Signs (Past 12 Hours) Vital Signs Temp Pulse Resp BP Pulse Ox 05/26/21 07:51 36.5 C 83 18 123/69 93 05/25/21 23:22 36.7 C 75 15 128/74 94 Laboratory Results 05/26/21 05/26/21 05/26/21 Range/Units 06:02 06:02 06:02 WBC 8.22 (4.8-10.8) K/uL RBC 3.94 L (4.2-5.4) M/uL Hgb 11.9 L (12.0-16.0) g/dL Hct 35.2 L (37-47) % MCV 89.3 (80-100) fL MCH 30.2 (25-34) pg MCHC 33.8 (32-36) g/dL RDW Std Deviation 41.9 (36.4-46.3) fL RDW Coeff of Hernan 12.8 (11.5-14.5) % Plt Count 386 (130-400) K/uL MPV 8.8 (7.4-10.4) fL Immature Gran % (Auto) 0.2 % Neut % (Auto) 65.8 % Lymph % (Auto) 18.0 % Jones % (Auto) 10.7 % Eos % (Auto) 4.4 % Baso % (Auto) 0.9 % Neut # (Auto) 5.41 (1.4-6.5) K/uL Lymph # (Auto) 1.48 (1.2-3.4) K/uL Jones # (Auto) 0.88 H (0.11-0.59) K/uL Eos # (Auto) 0.36 (0-0.5) K/uL Baso # (Auto) 0.07 (0-0.2) K/uL Immature Gran # (Auto) 0.02 (0.00-0.02) K/uL ESR 48 H (0-30) mm/hr Sodium (136-145) mmol/L Potassium (3.5-5.1) mmol/L Chloride (98-107) mmol/L Carbon Dioxide (21-32) mmol/L Anion Gap (3-11) BUN (7-18) mg/dl Creatinine (0.6-1.2) mg/dl Est Cr Clr Drug Dosing ml/min Est GFR ( Amer) ml/min Est GFR (Non-Af Amer) ml/min BUN/Creatinine Ratio (10-20) Glucose (70-99) mg/dl Calcium (8.5-10.1) mg/dl Magnesium (1.8-2.4) mg/dl Total Bilirubin (0.2-1) mg/dl AST (15-37) U/L ALT (12-78) Alkaline Phosphatase (45-117) U/L C-Reactive Protein (0-0.29) mg/dl Total Protein (6.4-8.2) gm/dl Albumin (3.4-5.0) gm/dl Globulin (2.5-4.0) gm/dl Albumin/Globulin Ratio (0.9-2) Vancomycin Trough 12.0 (See Comment) mcg/ml 05/26/21 05/25/21 Range/Units 06:02 06:19 WBC (4.8-10.8) K/uL RBC (4.2-5.4) M/uL Hgb (12.0-16.0) g/dL Hct (37-47) % MCV (80-100) fL MCH (25-34) pg MCHC (32-36) g/dL RDW Std Deviation (36.4-46.3) fL RDW Coeff of Hernan (11.5-14.5) % Plt Count (130-400) K/uL MPV (7.4-10.4) fL Immature Gran % (Auto) % Neut % (Auto) % Lymph % (Auto) % Jones % (Auto) % Eos % (Auto) % Baso % (Auto) % Neut # (Auto) (1.4-6.5) K/uL Lymph # (Auto) (1.2-3.4) K/uL Jones # (Auto) (0.11-0.59) K/uL Eos # (Auto) (0-0.5) K/uL Baso # (Auto) (0-0.2) K/uL Immature Gran # (Auto) (0.00-0.02) K/uL ESR (0-30) mm/hr Sodium 133 L (136-145) mmol/L Potassium 3.4 L (3.5-5.1) mmol/L Chloride 100 (98-107) mmol/L Carbon Dioxide 25 (21-32) mmol/L Anion Gap 8.0 (3-11) BUN 17 (7-18) mg/dl Creatinine 0.88 (0.6-1.2) mg/dl Est Cr Clr Drug Dosing 43.7 ml/min Est GFR ( Amer) 74.5 ml/min Est GFR (Non-Af Amer) 64.3 ml/min BUN/Creatinine Ratio 19.0 (10-20) Glucose 99 (70-99) mg/dl Calcium 9.7 (8.5-10.1) mg/dl Magnesium 2.1 (1.8-2.4) mg/dl Total Bilirubin 0.6 (0.2-1) mg/dl AST 67 H (15-37) U/L ALT 51 (12-78) Alkaline Phosphatase 85 (45-117) U/L C-Reactive Protein 4.73 H (0-0.29) mg/dl Total Protein 6.6 (6.4-8.2) gm/dl Albumin 2.8 L (3.4-5.0) gm/dl Globulin 3.8 (2.5-4.0) gm/dl Albumin/Globulin Ratio 0.7 L (0.9-2) Vancomycin Trough (See Comment) mcg/ml PG Care Time/CCT Total # of Minutes Spent Total Time Spent with Patient: Total time spent is greater than 50% in coordination of care (as documented) at patient's floor/unit and/or counseling patient: Coding Level of Care Code 51090 Subseq Hosp Care Lvl 2 Diagnoses Ambulatory dysfunction R26.2 Status post left knee replacement Z96.652 Leg muscle spasm M62.838 Hypothyroidism E03.9 HTN (hypertension) I10 Atrial fibrillation I48.19 Atrial fibrillation type: persistent (not longstanding) Complete heart block I44.2 Hypokalemia E87.6 Foreign body of left knee S80.252A Vitamin D deficiency E55.9 Osteoporosis M81.0 (1) Atrial fibrillation Atrial fibrillation type: persistent (not longstanding) Qualified Code(s): I48.19 - Other persistent atrial fibrillation
--- NOTE | 2021-05-26 09:17 | Pharmacy Report ---
Pharmacy Vanc AUC Short Note - Date of Service May 26, 2021 - Assessment & Plan Assessment 76 year old F receiving vancomycin for wound dehiscence and drainage (continued from outpatient regimen). * s/p left knee total arthroplasty on 04/15/21. Pt returned to the OR on 05/09/21 for irrigation due to concerns of post operative infection and was then starting on daily vancomycin IV (plan for up to 4 weeks of therapy). Renal function stable. Plan Vancomycin * AUC/THEO is the preferred PK/PD target for vancomycin * AUC guided dosing is effective and associated with decreased risk of nephrotoxicity compared to traditional trough targets * Trough level of 12mcg/mL drawn this AM was a 24hr level and is therapeutic, correlates with AUC/THEO 400-600. * Continue dose of 1000 mg IV every 24 hours * Monitor trough levels every 3-5 days pending clinical status while admitted. Pharmacy will continue to follow and will adjust dose/frequency as necessary. Thank you.
--- NOTE | 2021-05-26 09:23 | Orthopedic Progress Note ---
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 Hinged knee brace on the left knee that is locked at 0 degrees to 40 degrees. PT/OT protocols. Continue to use immobilizer or hinged knee brace at all times. Weightbearing as tolerated. DVT prophylaxis-patient is currently on dabigatran twice daily, SCDs Pain management as written. DC planning-we discussed possible discharge home today. She would be able to follow-up with Dr. Matson this week. She will work with PT again today for ambulation. Even if she is nonweightbearing on the left lower extremity. If it seems she would be able to be safe at home to do her ADLs, we may be able to discharge her today. We discussed being able to discharge home but she will need to be able to ambulate significantly more than she has now. If she is unable to increase her ambulation, she may need to consider transfer to a rehabilitation center. We also discussed that she will probably require another surgery to repair the probable retinacular tear as well as remove what appears to be part of the Hemovac drain in the knee joint. She is understandably reluctant to have anot her surgery but we discussed that it may be necessary for her to regain normal ambulation. (2) Foreign body of left knee: Plan: On lateral view of x-ray there appears to be part of Hemovac drain posterior to the patella (3) Status post left knee replacement: Admission and Anticipated Discharge Date Admission Date: May 23, 2021 Subjective patient evaluated this morning. Sleeping upon entry to room. Pain is controlled. No changes from yesterday. No fever , chills, chest pain, shortness of breath, n/v/adb pain at this time. Physical Exam Constitutional: WD/WN, vitals as above Musculoskeletal: Knee: + skin erythema (Minimal at the central aspect of the left knee incision with mild serous dr), + surgical incision (Anterior left knee well approximated with christophe in place) and + limited ROM of knee (Extension of left knee difficult with left knee flexion contracture); no ecchymosis Psychiatric: A+Ox3, euthymic affect Speech: normal rate/rhythm/volume of speech Results & Data ([facility]) Vital Signs (Past 12 Hours) Vital Signs Temp Pulse Resp BP Pulse Ox 05/26/21 07:51 36.5 C 83 18 123/69 93 05/25/21 23:22 36.7 C 75 15 128/74 94
[2021-05-26] MEDS ORDERED: DOCUSATE SODIUM/SENNA 50/8.6MG TAB PO SCH (09:45)
[2021-05-26] MEDS: DIGOXIN 0.125 MG TAB PO SCH (10:14)
[2021-05-26] MEDS: DABIGATRAN ETEXILATE 75 MG CAP PO SCH ×2 (10:15→22:29)
[2021-05-26] MEDS: VERAPAMIL HCL 180 MG TABCR PO SCH (10:16)
[2021-05-26] MEDS: NYSTATIN OINT 15 GM TUBE EXT SCH ×3 (10:19→20:31)
[2021-05-26] MEDS: POLYETHYLENE (MIRALAX) 17 GM PACK PO SCH ×2 (10:26→20:30)
[2021-05-26] MEDS: oxyCODONE HCL IR 5 MG TAB (IMMEDIATE RELEASE) PO PRN (17:13)
[2021-05-26] MEDS: CHOLECALCIFEROL 1,000 UNITS 25 MCG TAB PO SCH (20:30)
[2021-05-26] MEDS: SODIUM CHLORIDE 0.9% 1000ML 1,000 ML IV SCH (20:35)
[2021-05-27] MEDS: ACETAMINOPHEN 500 MG TAB PO PRN (01:57)
[2021-05-27] MEDS: oxyCODONE HCL IR 5 MG TAB (IMMEDIATE RELEASE) PO PRN ×2 (01:57→01:59)
[2021-05-27 06:38] LABS: Hematocrit (blood only) 31.8 % (37-47); Hemoglobin 10.5 g/dL (12.0-16.0); Mean Corpuscular Hemoglobin 29.8 pg (25-34); Mean Corpuscular Volume 90.3 fL (80-100); Mean Platelet Volume 8.7 fL (7.4-10.4); Platelet Count 363 K/uL (130-400); RDW Standard Deviation 42.7 fL (36.4-46.3); Red Blood Count 3.52 M/uL (4.2-5.4); White Blood Count 7.88 K/uL (4.8-10.8)
[2021-05-27 07:17] LABS: BUN Creatinine Ratio 19.7 (10-20); Calcium 9.2 mg/dl (8.5-10.1); Creatinine Clr Calc Pharmacy 45.2 ml/min; Est GFR (African American) 77.7 ml/min; Potassium 3.5 mmol/L (3.5-5.1)
[2021-05-27] MEDS: VANCOMYCIN HCL 1,000 MG in SODIUM CHLORIDE 0.9% 250 ML IV SCH (07:17)
--- NOTE | 2021-05-27 07:49 | Orthopedic Progress Note ---
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 Hinged knee brace on the left knee that is locked at 0 degrees to 40 degrees. PT/OT protocols. Continue to use immobilizer or hinged knee brace at all times. Weightbearing as tolerated. DVT prophylaxis-patient is currently on dabigatran twice daily, SCDs Pain management as written. DC planning-the patient will be discharged this morning. Her will be here to pick her up soon and they will go directly to [facility]. Patient was kept n.p.o. after midnight last night so she will be able to proceed with surgery later today. (2) Foreign body of left knee: Plan: On lateral view of x-ray there appears to be part of Hemovac drain posterior to the patella (3) Status post left knee replacement: Admission and Anticipated Discharge Date Admission Date: May 23, 2021 Subjective Patient lying in bed comfortably today. No complaints with the left knee. no fever, chills, chest pain or shortness of breath reported. Physical Exam Constitutional: WD/WN, vitals as above Musculoskeletal: Knee: + skin erythema (Minimal at the central aspect of the left knee incision with mild serous dr), + surgical incision (Anterior left knee well approximated with christophe in place) and + limited ROM of knee (Extension of left knee difficult with left knee flexion contracture); no ecchymosis Psychiatric: A+Ox3, euthymic affect Speech: normal rate/rhythm/volume of speech Results & Data ([facility]) Vital Signs (Past 12 Hours) Vital Signs Temp Pulse Resp BP Pulse Ox 05/27/21 07:38 36.6 C 70 18 124/67 97 05/26/21 22:25 37.1 C 72 16 125/67 96
--- NOTE | 2021-06-03 13:31 | Discharge Summary ---
Date of Service June 03, 2021 Admission HPI Per Admitting Provider Patient is a 76-year-old white female who had undergone a total knee arthroplasty by Dr. Ti Matson in April. The patient states that she was doing well postoperatively however she ended up having part of her wound dehisce. She was taken back to surgery early May and underwent irrigation and debridement of the wound dehiscence along with I believe a retinacular repair. Dr. Matson placed her on IV vancomycin 1000 mg daily secondary to her wound dehiscence. She was placed in an immobilizer to keep her from bending the knee to ensure healing. She was started on home health PT and nursing care after her second surgery. The patient states that she was having spasms off and on in the left lower extremity. This was around the knee mostly and also sometimes in the hamstring region and also the quadriceps regions. She denies any low back pain and no pain in the left buttock radiating down into the foot. Patient was having ever-increasing ability to ambulate secondary to the spasms. She is accompanied by her presently who states that within the last 48 hours she continued to have multiple spasms and continued pain in the left lower extremity. Dr. Matson had ordered a muscle relaxer for the patient of which she approximately had 2 doses which did not seem to help. An appointment was scheduled for her tomorrow to see Dr. Matson in the office however patient continued to have pain in the left knee and inability to ambulate and they came into the emergency room to be seen. After examination of the patient and attempts to ambulate her it was felt that she would not be able to go home and is being admitted for ambulation dysfunction. Principal Diagnosis Left knee retinacular tear post TKA Ambulatory dysfunction Discharge Exam Constitutional WD/WN, vitals as above Musculoskeletal Knee: + skin erythema (Minimal at the central aspect of the left knee incision with mild serous dr), + surgical incision (Anterior left knee well approximated with christophe in place) and + limited ROM of knee (Extension of left knee difficult with left knee flexion contracture); no ecchymosis Psychiatric A+Ox3, euthymic affect Speech: normal rate/rhythm/volume of speech Discharge Data Allergies Allergy/AdvReac Type Severity Reaction Status Date / Time simvastatin Allergy Unknown MYALGIA Verified 05/23/21 14:19 Sulfa (Sulfonamide Allergy Unknown Verified 05/23/21 14:19 Antibiotics) Consultations 05/23/21 16:41 ED Decision to Admit Stat 05/23/21 19:19 Consult Hospitalist Routine Hospital Course (1) Ambulatory dysfunction: Ambulation dysfunction likely secondary to 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 Hinged knee brace on the left knee that is locked at 0 degrees to 40 degrees. PT/OT protocols. Continue to use immobilizer or hinged knee brace at all times. Weightbearing as tolerated. DVT prophylaxis-patient is currently on dabigatran twice daily, SCDs Pain management as written. DC planning-the patient will be discharged this morning. Her will be here to pick her up soon and they will go directly to [facility]. Patient was kept n.p.o. after midnight last night so she will be able to proceed with surgery later today. (2) Foreign body of left knee: On lateral view of x-ray there appears to be part of Hemovac drain posterior to the patella (3) Status post left knee replacement: Total Time Total Time Spent Total Time Spent (In Minutes): 60 Discharge Plan Discharge Items Patient Disposition: Home - Self-Care Reason For Visit: AMBULATORY DISFUNCTION S/P TKA Discharge Diagnosis: Ambulatory dysfunction History of left TKA Activity: Per Instructions section Weightbearing: Left weightbearing Weightbearing Comment: As tolerated in hinged brace Non-emergency contact: Surgeon Call non-emergency contact if: your pain is not controlled, your pain is worsening and your temperature is above 101 Follow-up/Referrals: Vivien Fragoso MD [Primary Care Provider] - Diet: Regular Addtl Attending Provider Instructions: ACTIVITY RECOMMENDATIONS: SELF CARE INSTRUCTIONS AFTER TOTAL KNEE REPLACEMENT A. You may need to continue a physical therapy program after discharge from the hospital. There are several options available to you. Your doctor will assist you in selecting the best one for you. 1. An out-patient facility 3 times a week for therapy. 2. Home therapy for 1 to 2 weeks with outpatient therapy to follow. 3. Continue working on all exercises taught by physical therapy three times a day for 20 minutes on non-therapy days. Your goals should be to increase the bending of your knee to 90 degrees and beyond and to fully straighten your knee. Ice and elevate knee after exercise. B. Weight as tolerated with a walker or as instructed by your physician. C. It is okay to shower if minimal to no drainage from incision. No Baths. Do not soak wound. D. Make walking a part of your daily routine. Be up as much as comfortable with rest periods throughout the day. Rest with leg elevation is very important. Use the ice wrap frequently for the first 3-4 weeks. E. There are no restrictions on activities. You may ride in a car, shop, participate in guest attendant and all social activities. F. Wear the long elastic stockings (KHOA hose) 20 hours a day for one month after surgery. They can be removed several times a day for laundering and when showering. G. The hinged knee brace should be on the left knee at all times. Range of motion is 0 degrees to 40 degrees only at this time. SPECIAL CARE INSTRUCTIONS: VERY IMPORTANT TO READ AND REVIEW A. Take Pradaxa (blood thinning medications) as directed by your doctor. If on Coumadin, have a pro-time (blood test) drawn according to your doctor's instructions. This will tell the doctor how well the Coumadin is thinning your blood. B. There are a few signs you need to watch for after you are home. Call [facility] if you notice any of the followin. Increased severe knee pain. Some pain is expected especially when you exercise. 2. Increased swelling in your leg or knee; pain or swelling of the calf muscle in either lower leg. 3. Any redness or fluid drainage from the incision. 4. Shortness of breath or chest pain. 5. A Temperature of 101 degrees F or greater. C. Please call [facility] at if you have any concerns or questions about your operation or recovery. The doctor or his nurse will return your call promptly. D. You must take antibiotics before dental work, bladder, bowel or other surgery. Your doctor will provide you with a permanent care to carry describing this precaution. FOLLOW UP VISIT: If appointment is not already scheduled: Please call [facility] to make a follow-up appointment With Dr. Matson for this week at . Pending Studies at Discharge: No Stand-Alone Forms: My [employer], Smoking Cessation Medications and DC Order Prescriptions: Continued triamterene-hydrochlorothiazid 37.5-25 mg capsule 1 cap PO DAILY Qty: 90 RF: 3 verapamil 360 mg capsule,ext rel. pellets 24 hr 360 mg PO DAILY Qty: 90 RF: 3 digoxin 125 mcg (0.125 mg) tablet 125 mcg PO DAILY Qty: 90 RF: 3 cyclobenzaprine 5 mg tablet 5 mg PO BID PRN (Reason: muscle spasm) Qty: 30 RF: 0 acetaminophen [Tylenol] 325 mg tablet 325 mg PO Q6H PRN (Reason: Pain) RF: 0 cholecalciferol (vitamin D3) [Vitamin D3] 2,000 unit tablet 2,000 unit PO HS RF: 0 Discontinued Pradaxa 150 mg capsule 150 mg PO BID Qty: 180 RF: 3 Discharge Orders: Discharge Order (Routine); Ordered 05/27/21 Ordered By: Thony Segovia Admission Data Admit Date/Time: 05/23/21 17:16 Attending Provider: Lj Castorena Admit Provider: Lj Castorena Primary Care Provider: Vivien Fragoso Other Providers: Tony Munoz George A ; Vitaliy Ruano Other Interventions: Discharge Summary Assessment (RN) Last Done: 05/27/21 08:51
== END 2021-05-27 09:15 | disposition home or self-care (01) | DRG 558 ==
LOC: ED 12:47 → SUATTDRO 17:16 → 3N 17:16

== ENCOUNTER 2023-09-05 11:54 | Inpatient (IN) ==
--- NOTE | 2023-09-05 12:13 | Emergency Department Note ---
Impression & Plan Weakness, Anemia, Leukocytosis, Urinary incontinence, Hypomagnesemia, Status post chemotherapy, Heme positive stool ED Provider Note NAME: LISA KEEN AGE: 78 SEX: F : 1945 ARRIVES VIA: Ambulance INFORMANT: [Patient] ED PROVIDER(S): [Hoonrio Kaufman MD] CHIEF COMPLAINT: Weakness HISTORY OF PRESENT ILLNESS: The patient is a 78-year-old female with breast cancer, A-fib and history of CVA. She had chemotherapy 4 days ago on Thursday. The patient states that yesterday, her arms were weak from the hands to the elbows. She had some tingling. This morning, she awoke and felt weakness in both legs. She is so weak she cannot get around on her own. She lives with her . She was incontinent of urine last evening, she does not have cough or congestion, she is not short of breath, no headache or chest pain. There has been no vomiting or diarrhea. She admits that she may have some dehydration as she has not been keeping up with fluids. PMHx/PSHx/Social Hx: See Below PHYSICAL EXAM: GENERAL: Patient is in no acute distress. HEENT: No acute trauma, normocephalic atraumatic, mucous membranes moist, no nasal congestion. NECK: No stridor, no adenopathy, no meningismus, trachea is midline. LUNGS: Decreased breath sounds on the right, no respiratory distress or wheezing. HEART: No murmurs, regular rate, irregular rhythm. ABDOMEN: Soft, nontender, no peritonitis. EXTREMITIES: No cyanosis, full range of motion of all the joints without pain or difficulty. NEUROLOGIC: Oriented x 3, no acute motor or sensory deficits, no focal weakness. She has some generalized extremity tremor. There is no extremity drift or cerebellar dysfunction. No speech slur or facial droop. SKIN: No jaundice, no diaphoresis. Rectal: Brown stool, heme positive. DIFFERENTIAL DIAGNOSIS: Bacteremia or sepsis, UTI, stroke or TIA, chemotherapy reaction, electrolyte imbalance, anemia, among others. EMERGENCY DEPARTMENT PROCEDURES: MEDICAL DECISION MAKING: There is a mild leukocytosis consistent with potential infection. The patient was anemic with a hemoglobin of 7.6. This was a drop for her when looking back at previous testing. Rectal exam showed brown stool, the stool was heme positive. There was a normal platelet count. INR was 1.1. Magnesium is low at 1.4. No renal failure. Lactic acid level was not elevated making severe sepsis less likely. No concerning liver enzyme elevation. ECG showed atrial fibrillation, consistent with her past history, no acute ischemia. Cardiac enzyme testing x 1 is not consistent with acute cardiac injury. TSH was within normal parameters. Chest x-ray did not show pneumonia or CHF. On exam, the patient was mildly tachycardic at times with her A-fib. She was not hypotensive or febrile. The patient was given IV Protonix, 1 L of IV saline. She was given 180 mg of oral verapamil, she thinks she forgot to take her morning of verapamil dose. She received IV magnesium. She received IV cefepime as empiric antibiotic coverage. The patient is still trying to give us a urine sample. A urine culture has been ordered from the small amount of urine already obtained. I did speak with the patient about her findings, I spoke with her family. I do think she requires a hospital stay. She has weakness, she is unable to walk, she just received chemotherapy. She is quite anemic with a low magnesium and a potential UTI. I did speak with case management, the on-call hospitalist was consulted. Prior/Outside records/notes reviewed: Today's EMS notes describing her presentation and transport to this hospital. ECG per my interpretation: Indication was weakness. The ECG shows atrial fibrillation with a rate of 92 with some PVCs. There is some baseline artifact. There is no acute ST elevation. There is a right bundle branch block. QTc is 462. Continuous Cardiac Monitoring per my interpretation: An order was placed for continuous cardiac monitoring. The monitor shows a rate of 88 with atrial fibrillation. Imaging/x-ray results per my interpretation: Chest x-ray does not show mediastinal widening, pneumonia or pneumothorax. Some chronic changes were noted. Chronic Medical/Social conditions affecting care: Advanced age, history of breast cancer currently undergoing chemotherapy. Care/Management discussed with: Case management, the on-call hospitalist. Level of care consideration(s): After review of the information above and other included data: --I believe the patient requires escalation of care to admission Critical Care Note: I have personally spent 43 minutes of critical care time in the direct management of this patient. This includes bedside care, interpretation of diagnostic studies, and testing, discussion with consultants, patient, and family members, and other required patient management activities. This 43 minutes is in excess of all separately billable procedures. DISPOSITION: Admission Past Med/Surg History Medical History Cardiac murmur intermittent noted Moderate MR and TR on 2020 ECHO Breast cancer metastasized to axillary lymph node Left- diagnosed Mar 2023 Anaplasmosis hx Rheumatic fever hx childhood. Osteoporosis declines meds Dyslipidemia denies Depression Hypothyroidism History of CVA (cerebrovascular accident) hx stroke 2009. no residuals. HTN (hypertension) Pacemaker Medtronic...last checked at EP office 04/06/23 Complete heart block Per EP records- s/p pacemaker placement 2016 Atrial fibrillation dx yrs ago. on [facility] Surgical History (Updated 09/05/23 @ 15:07 by Honorio Kaufman MD) Port-A-Cath in place (05/25/23) Insertion Right Subclavian Access Port with Fluoroscopy(Right) - [place], Status post left knee replacement (04/2021) complicated by joint infection - x4 surgeries total. Most recent Jan 2023. History of permanent cardiac pacemaker placement Family History Unknown Cancer Thyroid disorder History of arthritis Sister Breast cancer Other Family history non-contributory Denies family history of Ovarian cancer Prostate cancer Myocardial infarction Colorectal cancer Social History Smoking Status: Never smoker Second Hand Exposure: No; Do You Dip or Chew Tobacco: No; Hx Substance Use: No Preferred Language: Yi Communication Ability: Effective Visual Impairment: No Limitations Hearing Ability: Normal Skin Grader Required: No Beliefs That Will Affect Care: None marital status: Current Living Situation: Spouse current occupational status: retired How many Children do You have: 1 Feels Safe at Home: Yes Diet: regular during the past year weight has: remained stable Seatbelt Use: always Sunscreen Use: Yes Assistive Devices: None Allergies Allergies Allergy/AdvReac Type Severity Reaction Status Date / Time simvastatin Allergy Unknown muscle Verified 07/20/23 13:38 aches Sulfa (Sulfonamide Allergy Unknown ? rash Verified 07/20/23 13:38 Antibiotics) Home Meds Home Medications Medication Instructions Recorded Confirmed acetaminophen 325 mg tablet 325 mg PO Q6H PRN Pain 01/10/19 09/05/23 (Tylenol) cholecalciferol (vitamin D3) 25 25 mcg PO QPM 08/06/22 09/05/23 mcg (1,000 unit) capsule fluticasone propionate 50 2 spray intranasal UD PRN allergy 08/06/22 09/05/23 mcg/actuation nasal symptoms spray,suspension fluoxetine 20 mg tablet 30 mg PO QAM 05/22/23 09/05/23 triamterene 37.5 0 cap PO QAM 05/22/23 09/05/23 mg-hydrochlorothiazide 25 mg capsule verapamil 360 mg 24 hr 360 mg PO QAM 05/22/23 09/05/23 capsule,extended release diphenoxylate-atropine 2.5 1 tab PO QID PRN Other 09/05/23 09/05/23 mg-0.025 mg tablet lorazepam 0.5 mg tablet 0 mg PO Q8H PRN anxiety 09/05/23 09/05/23 potassium chloride 20 mEq 20 meq PO DAILY 09/05/23 09/05/23 tablet,extended release(part/cryst) timolol maleate 0.25 % eye drops 1 drp ophthalmic (eye) QAM 09/05/23 09/05/23 Previous Rx's Medication Instructions Recorded apixaban 5 mg tablet (Eliquis) 5 mg PO BID #60 tabs 10/24/22 levothyroxine 112 mcg tablet 112 mcg PO QAM #90 tabs 08/10/23 Results & Data (ED) Vital Signs Vital Signs - 24 hr 09/05/23 12:32 09/05/23 12:37 09/05/23 12:37 Temperature 37 C Temperature Source Oral Pulse Rate 100 H 105 H Pulse Rate [Apical] Respiratory Rate 22 Respiratory Depth Blood Pressure 147/94 H Blood Pressure [Right Arm] Blood Pressure Mean 111 Blood Pressure Mean [Right Arm] Pulse Oximetry 96 97 Oxygen Delivery Method Room Air Room Air Sepsis Recent Fever Within 48 Hours No Sepsis New/Unexplained Change in Mental Status N/A Sepsis Action Taken by Nursing Physician Notified 09/05/23 12:37 09/05/23 12:37 Temperature Temperature Source Pulse Rate 106 H Pulse Rate [Apical] 104 H Respiratory Rate 20 Respiratory Depth Normal Blood Pressure Blood Pressure [Right Arm] 147/94 H Blood Pressure Mean Blood Pressure Mean [Right Arm] 111 Pulse Oximetry 96 95 Oxygen Delivery Method Room Air Room Air Sepsis Recent Fever Within 48 Hours Sepsis New/Unexplained Change in Mental Status Sepsis Action Taken by [facility] Medications Current Medication List: was personally reviewed by me Laboratory Data Attestation: I reviewed the patient's lab results. 09/05/23 12:33 09/05/23 12:33 Lab Results 09/05/23 09/05/23 Range/Units 12:33 13:26 WBC 14.85 H (4.8-10.8) K/ul RBC 2.46 L (4.20-5.40) M/uL Hgb 7.6 L (12.0-16.0) g/dl Hct 22.8 L (37.0-47.0) % MCV 92.7 (80.0-100.0) fL MCH 30.9 (25.0-34.0) pg MCHC 33.3 (32.0-36.0) g/dL RDW Std Deviation 64.1 H (36.4-46.3) fL RDW Coeff of Hernan 19.4 H (11.5-14.5) % Plt Count 216 (130-400) K/uL MPV 10.5 (9.4-12.4) fL Immature Gran % (Auto) 1.1 % Neut % (Auto) 90.0 % Lymph % (Auto) 7.5 % Terry % (Auto) 1.3 % Eos % (Auto) 0.0 % Baso % (Auto) 0.1 % Reticulocyte % (Auto) 0.79 (0.50-2.00) % Neut # (Auto) 13.34 H (1.40-6.50) K/uL Lymph # (Auto) 1.12 L (1.20-3.40) K/uL Terry # (Auto) 0.20 (0.11-0.59) K/uL Eos # (Auto) 0.00 (0.00-0.50) K/uL Baso # (Auto) 0.02 (0.00-0.20) K/uL Reticulocyte # 0.020 (0.020-0.100) 10^6/uL Immature Gran # (Auto) 0.17 (0.01-0.20) K/uL PT 12.1 H (9.0-12.0) Seconds INR 1.1 (0.9-1.1) APTT 57 H (21-31) Seconds PTT Ratio 2.0 Sodium 134 L (136-145) mmol/L Potassium 4.0 (3.5-5.1) mmol/L Chloride 99 (98-107) mmol/L Carbon Dioxide 28 (21-32) mmol/L Anion Gap 7 (3-11) BUN 20 (6-23) mg/dl Creatinine 0.80 (0.6-1.2) mg/dl Est Cr Clr Drug Dosing 51.2 ml/min Est GFR ( Amer) 82.4 ml/min Est GFR (Non-Af Amer) 71.1 ml/min BUN/Creatinine Ratio 25.0 H (10-20) Glucose 94 (70-99(Fasting)) mg/dl Lactate 1.5 (0.4-2.0) mmol/L Calcium 8.5 L (8.6-10.3) mg/dl Phosphorus 2.2 L (2.5-4.9) mg/dl Magnesium 1.4 L (1.7-2.4) mg/dl Iron 25 L (35-150) mcg/dl TIBC 294 (250-450) mcg/dl Unsaturated IBC 269 (155-355) mcg/dl Transferrin % Sat 9 L (15-50) % Total Bilirubin 0.7 (0.2-1.0) mg/dl AST 17 (13-39) U/L ALT 37 (7-52) U/L Alkaline Phosphatase 63 (34-104) U/L Troponin I High Sens 12.0 (0-14) pg/ml Total Protein 5.6 L (6.0-8.3) gm/dl Albumin 3.3 L (3.4-5.0) gm/dl Globulin 2.3 L (2.5-4.0) gm/dl Albumin/Globulin Ratio 1.4 (0.9-2) Vitamin B12 451 (180-914) pg/ml Folate 7.89 (>5.38) ng/ml TSH 4.343 (0.300-4.500) uIu/ml Urine Color Cancelled Urine Appearance Cancelled Urine pH Cancelled Ur Specific [place] Cancelled Urine Protein Cancelled Urine Glucose (UA) Cancelled Urine Ketones Cancelled Urine Blood Cancelled Urine Nitrite Cancelled Urine Bilirubin Cancelled Urine Urobilinogen Cancelled Ur Leukocyte Esterase Cancelled Urine WBC (Auto) Cancelled Urine RBC (Auto) Cancelled U Hyaline Cast (Auto) Cancelled U Epithel Cells (Auto) Cancelled Urine Bacteria (Auto) Cancelled Ur Renal Epithelial Cell Cancelled Urine Crystals Cancelled Calcium Oxalate Crystal Cancelled Uric Acid Crystals Cancelled Triple Phos Crystals Cancelled Other Crystals Cancelled Amorphous Sediment Cancelled Granular Casts Cancelled Waxy Casts Cancelled RBC Casts Cancelled WBC Casts Cancelled Other Casts Cancelled Urine Mucus Cancelled Urine Other Cancelled Urine Trichomonas Cancelled Urine Yeast Cancelled Urine Sperm Cancelled Ur Oval Fat Bodies Cancelled Blood Type O Positive Antibody Screen NEGATIVE Crossmatch See Detail Administered Medications Magnesium Sulfate/Dextrose (Magnesium Sulfate / D5w) 1 gm in 100 mls @ 100 mls/hr IV Q1H [facility] Stop: 09/05/23 15:15 Last Admin: 09/05/23 14:50 Dose: 100 mls/hr Documented By: Infusion: 09/05/23 14:30 Dose: Infused Documented By: Admin: 09/05/23 13:30 Dose: 100 mls/hr Documented By: KASI Lactated Ringer's (Lr) 1,000 mls @ 100 mls/hr IV .Q10H [facility] Stop: 09/06/23 10:59 Last Admin: 09/05/23 14:48 Dose: 100 mls/hr Documented By: ANAHY Discontinued Medications Gabapentin (Gabapentin 100 Mg Cap) 100 mg PO NOW STA Stop: 09/05/23 14:10 Last Admin: 09/05/23 14:39 Dose: 100 mg Documented By: ANAHY Sodium Chloride (Nss) 500 mls @ 999 mls/hr IV .Q31M TRI Stop: 09/05/23 12:45 Last Infusion: 09/05/23 14:08 Dose: Infused Documented By: Admin: 09/05/23 13:30 Dose: 999 mls/hr Documented By: KASI Sodium Chloride (Nss) 500 mls @ 999 mls/hr IV .Q31M ONE Stop: 09/05/23 13:49 Last Infusion: 09/05/23 14:08 Dose: Infused Documented By: Admin: 09/05/23 13:30 Dose: 999 mls/hr Documented By: KASI Pantoprazole Sodium 40 mg/ (Syringe) 10 mls @ 5 mls/min IV NOW ONE Stop: 09/05/23 13:46 Last Admin: 09/05/23 14:40 Dose: 5 mls/min Documented By: ANAHY Famotidine (Pepcid 20mg Iv Push) 20 mg in 5 mls @ 2.5 mls/min IV NOW STA Stop: 09/05/23 13:33 Last Admin: 09/05/23 14:30 Dose: 2.5 mls/min Documented By: ANAHY Pantoprazole Sodium 80 mg/ (Dextrose) 120 mls @ 400 mls/hr IV NOW ONE Stop: 09/05/23 13:49 Last Admin: 09/05/23 14:40 Dose: 400 mls/hr Documented By: ANAHY Cefepime HCl (Maxipime) 2,000 mg in 20 mls @ 5 mls/min IV NOW STA; Protocol Stop: 09/05/23 13:35 Last Admin: 09/05/23 14:30 Dose: 5 mls/min Documented By: ANAHY Lactated Ringer's (Lr) 500 mls @ 999 mls/hr IV .Q31M ONE Stop: 09/05/23 14:44 Last Infusion: 09/05/23 14:49 Dose: Infused Documented By: Admin: 09/05/23 14:34 Dose: 999 mls/hr Documented By: ANAHY Verapamil HCl (Verapamil Hcl 180 Mg Tabcr) 180 mg PO NOW STA Stop: 09/05/23 13:33 Last Admin: 09/05/23 14:39 Dose: 180 mg Documented By: ANAHY Imaging Data Radiologist's Impression: Chest X-Ray 09/05/23 12:08 XR chest 1V portable HISTORY: weakness COMPARISON: Chest 05/25/2023. FINDINGS: No pneumothorax. No pleural effusions. Is left-sided dual-chamber pacemaker. The heart remains moderately enlarged. This remains unchanged. There is a right subclavian Port-A-Cath which terminates in the proximal SVC. This is also unchanged. No focal lung consolidations to suggest pneumonia. No evidence for pulmonary edema. No acute fractures. IMPRESSION: No significant change compared to the prior study. No acute process. Stable cardiomegaly. ACT 112: Negative or not required by law. Electronically signed by: Jaun Olivares M.D. 09/05/2023 12:47 PM Discharge Plan Visit Data Chief Complaint: Weakness Stated Complaint: WEAKNESS ED Provider: Honorio Kaufman Discharge Problem: Weakness, Anemia, Leukocytosis, Urinary incontinence, Hypomagnesemia, Status post chemotherapy, Heme positive stool Patient Disposition: Admitted As Inpatient Condition: Fair Forms Stand Alone Forms: [facility] Prescriptions Prescriptions: No Action Eliquis 5 mg tablet 5 mg PO BID Qty: 60 11RF Hold Instructions: Resume on 05/29/23. levothyroxine 112 mcg tablet 112 mcg PO QAM Qty: 90 0RF cholecalciferol (vitamin D3) 25 mcg (1,000 unit) capsule 25 mcg PO QPM Rx Instructions: otc, unable to verify 09/05/23 fluticasone propionate 50 mcg/actuation spray,suspension 2 spray intranasal UD PRN (Reason: allergy symptoms) Rx Instructions: not on file with pharmacy 09/05/23 administer into each nostril acetaminophen [Tylenol] 325 mg tablet 325 mg PO Q6H PRN (Reason: Pain) Rx Instructions: otc, unable to verify 09/05/23 verapamil 360 mg capsule,ext rel. pellets 24 hr 360 mg PO QAM triamterene-hydrochlorothiazid 37.5-25 mg capsule 0 cap PO QAM Rx Instructions: original directions: 1 cap daily last filled in September 2022 fluoxetine 20 mg tablet 30 mg PO QAM diphenoxylate-atropine 2.5-0.025 mg tablet 1 tab PO QID PRN (Reason: Other) potassium chloride 20 mEq tablet,ER particles/crystals 20 meq PO DAILY timolol maleate 0.25 % drops 1 drp ophthalmic (eye) QAM lorazepam 0.5 mg tablet 0 mg PO Q8H PRN (Reason: anxiety) Rx Instructions: original directions: 0.5 mg q8h last filled in April 2023 Referrals Referrals: Vivien Fragoso MD [Primary Care Provider] - Discharge Problem: Anemia Qualifiers: Anemia type: unspecified type Qualified Code(s): D64.9 - Anemia, unspecified Leukocytosis Qualifiers: Leukocytosis type: unspecified Qualified Code(s): D72.829 - Elevated white blood cell count, unspecified Urinary incontinence Qualifiers: Urinary Incontinence type: unspecified incontinence Qualified Code(s): R32 - Unspecified urinary incontinence
--- NOTE | 2023-09-05 12:48 | XRay Report ---
XR chest 1V portable HISTORY: weakness COMPARISON: Chest 05/25/2023. FINDINGS: No pneumothorax. No pleural effusions. Is left-sided dual-chamber pacemaker. The heart kenny ins moderately enlarged. This remains unchanged. There is a right subclavian Port-A-Cath which termin ates in the proximal SVC. This is also unchanged. No focal lung consolidations to suggest pneumonia. No evidence for pulmonary edema. No acute fractures. IMPRESSION: No significant change compared to the prior study. No acute process. Stable cardiomegaly. ACT 112: Negative or not required by law. Electronically signed by: Jaun Olivares M.D. 09/05/2023 12:47 PM
[2023-09-05 12:57] LABS: Basophils # (auto) 0.02 K/uL (0.00-0.20); Basophils % (auto) 0.1 %; Hematocrit (blood only) 22.8 % (37.0-47.0); Hemoglobin 7.6 g/dl (12.0-16.0); Immature Granulocytes # (auto) 0.17 K/uL (0.01-0.20); Immature Granulocytes % (auto) 1.1 %; Lymphocytes # (auto) 1.12 K/uL (1.20-3.40); Lymphocytes % (auto) 7.5 %; Mean Corpuscular Hemoglobin 30.9 pg (25.0-34.0); Mean Corpuscular Hgb Conc 33.3 g/dL (32.0-36.0); Mean Corpuscular Volume 92.7 fL (80.0-100.0); Mean Platelet Volume 10.5 fL (9.4-12.4); Monocytes % (auto) 1.3 %; Neutrophils # (auto) 13.34 K/uL (1.40-6.50); Platelet Count 216 K/uL (130-400); RDW Coefficient of Variation 19.4 % (11.5-14.5); RDW Standard Deviation 64.1 fL (36.4-46.3); Red Blood Count 2.46 M/uL (4.20-5.40); White Blood Count 14.85 K/ul (4.8-10.8)
[2023-09-05 12:59] LABS: INR 1.1 (0.9-1.1); Partial Thromboplastin Time 57 Seconds (21-31); Prothrombin Time 12.1 Seconds (9.0-12.0)
[2023-09-05 13:05] LABS: Albumin Globulin Ratio 1.4 (0.9-2); Albumin Level 3.3 gm/dl (3.4-5.0); Bilirubin,Total 0.7 mg/dl (0.2-1.0); Calcium 8.5 mg/dl (8.6-10.3); Creatinine Clr Calc Pharmacy 51.2 ml/min; Est GFR (African American) 82.4 ml/min; Est GFR (Non-African American) 71.1 ml/min; Globulin 2.3 gm/dl (2.5-4.0); Magnesium 1.4 mg/dl (1.7-2.4); Total Protein 5.6 gm/dl (6.0-8.3)
[2023-09-05 13:21] LABS: Thyroid Stimulating Hormone 4.343 uIu/ml (0.300-4.500)
[2023-09-05] MEDS: MAGNESIUM SULFATE / D5W 1 GM/100 ML BAG IV SCH ×2 (13:30→18:13)
[2023-09-05] MEDS: SODIUM CHLORIDE 0.9% 500 ML IV ONE (13:30)
[2023-09-05] MEDS: SODIUM CHLORIDE 0.9% 500 ML IV SCH (13:30)
--- NOTE | 2023-09-05 13:34 | History & Physical Report ---
Date of Service September 05, 2023 Assessment & Plan (1) Anemia: Plan: -Admit to the PCU on tele -Currently in afib with RVR in the low 100's but otherwise stable -Presented to the ED with progressive peripheral neuropathy, generalized weakness, and foul smelling urine -Noted to have a Hgb of 7.6, down from 12.8 as of July 01 of this year -At this time the exact source of her anemia is unknown, differential includes iron deficiency, possible blood loss, chemotherapy induced -Will obtain type/cross, Fe panel with B12 and folate levels -Unsure if she is having a GI bleed at this time or if her bleed could be pelvic in nature with recent spotting -Will obtain complete US of the pelvis for further evaluation -Blood consent obtained on admission, suspect she will require transfusion after hydration -Will obtain type/cross and hold 2 units PRBC's, monitor CBC q6h, transfuse for a Hgb < 7.0 -Will place GI consult to follow -Hold Eliquis for now, last dose was this am -Has been hemodynamically without major bleeding, will hold reversal at this time -S/P 1L NSS in the ED >Will give 500 mL LR bolus on admission to complete her sepsis bolus >Will start maintenance LR x 2 bags once LR bolus is complete -BL KHOA's for DVT PPX -Clear liquid diet for now -Two large bore IV's order placed -AM CMP, mag, PT/INR (2) Generalized weakness: Plan: -Likely multifactorial including ongoing chemotherapy treatment, dehydration/poor oral intake, low mag level, anemia, and possible infection -Denies recent falls/trauma -Will continue too treat acute causes as able -PT/OT consults placed -Fall precuations (3) Atrial fibrillation with RVR: Plan: -Noted to be in afib RVR with HR in the low 100's on arrival, does have a known hx of Afib and is on Elqiuis with last does this am -Denies chest discomfort or SOB -High sen trop is WNL -Likely in RVR on arrival due to low mag level and not taking am dose of PO Verapamil -S/P home dose of Verapamil and 2gm IV amg sulfate in the ED -Will continue to replete electrolytes as needed -Will use pre IV medications as needed, will hold for now -Will need to hold Eliquis until acute bleed is ruled out (4) Leukocytosis: Plan: -Noted to have a leukocytosis of 14 with neutrophil predominance of 13 -Unsure if this is reactive or due to possible infection -Reported recent foul-smelling urine >Was straight-cathed in the ED but only produced enough of a sample to obtain urine culture at this time >CXR negative for pneumonia, no other infectious signs/symptoms at this time -Lactate was 1.5 in the ED -S/P one dose of Cefepime and 1L NSS in the ED -Will give 500 mL LR bolus now to complete her sepsis bolus -Start q24h Ceftriaxone for now as she has previous grown pansensitive Proteus Mirabilis on urine cultures -Will attempt to get another UA after further re-hydration (5) Hypomagnesemia: Plan: -Noted to be 1.4 in the ED -Likely due to recent diarrhea and poor oral intake -Potassium is WNL -Ordered 2 bags of 1gm IV Mag-sulfate in the ED -Will order an additional 2 bags of IV mag-sulfate to be given on admission -Monitor AM electrolytes (6) Chemotherapy-induced peripheral neuropathy: Plan: -Likely due to a combination of chemotherapy exacerbated by low mag levels -Will continue to replete electrolytes as needed -Will order phos level on admission -Will start 100 mg BID Gabapentin for now, patient is in agreement with starting during admission >Increase as able (7) Depression: Plan: -Continue fluoxetine Plan The patient was discussed with Dr. Soriano at the time of the admission History of Present Illness Chief Complaint: Generalized weakness, paresthesias, foul smelling urine Primary Care Provider: Vivien Fragoso MD Vicki is a 78 year old female with PMH significant for stage IIIC left breast cancer currently on Taxol/Phesgo therapy atrial fibrillation (on Eliquis), complete heart block S/P pacemaker placement, HTN, HLP, previous CVA, and rheumatic fever who presented to the [facility] ED on 09/05/23 with complaints of generalized weakness, upper extremity paresthesias, and foul smelling urine over the past 24 hours. She was noted to be tachycardic with HR in the low 100's on arrival but was otherwise stable. Labs were significant for a leukocytosis of 14 with neutrophil predominance of 13, hgb of 7.6 (down from 12.8 as of 07/01/23), sodium of 134, mag of 1.4. Chest xray was read as negative for acute findings. The ED performed a JEFF and the patient was noted to be Hemoccult positive. A straight cath urine sample was obtained, the patient only had enough urine at that time for a urine culture. Prior to admission the patient was given 1L NSS, ordered 2 bags of 1gm IV mag-sulfate, a dose of cefepime, and her home am dose of 180 mg PO Verapamil. At the time of the exam the patient was sitting in bed in no acute distress with her sitting bedside, history was obtained from both. She is currently following with [facility] and had her 6th round of chemotherapy on 09/01/23. She has been experiencing progressive neuropathy in the BL arms and legs since chemotherapy was started, she has not yet tried medication therapy for this. Over the past 2-3 weeks, prior to this past week, she had been experiencing multiple episodes of non-bloody diarrhea daily. However, over the past week her diarrhea resolved. She came to the ED this am for significant generalized weakness and concerns for foul smelling urine this am. Denies recent fever, chills, chest pain, SOB, cough, abd pain, nausea, vomiting, dysuria, hematuria, melena, LE swelling, and recent trauma. When asked about bright red blood, her explains that the patient has been spotting in her depends over the past week, they are unsure of where she is bleeding from though. She has only been using tylenol for pain. Denies recent NSAID, tobacco, or alcohol, use. She is a full code and her would make medical decisions for her if she cannot make them herself. Please refer to Dr. Soriano's attestation for any changes to the treatment plan Allergies Allergy/AdvReac Type Severity Reaction Status Date / Time simvastatin Allergy Unknown muscle Verified 07/20/23 13:38 aches Sulfa (Sulfonamide Allergy Unknown ? rash Verified 07/20/23 13:38 Antibiotics) Home Medications Medication Instructions Recorded Confirmed Type acetaminophen 325 mg tablet 325 mg PO Q6H PRN Pain 01/10/19 09/05/23 History (Tylenol) cholecalciferol (vitamin D3) 25 25 mcg PO QPM 08/06/22 09/05/23 History mcg (1,000 unit) capsule fluticasone propionate 50 2 spray intranasal UD PRN allergy 08/06/22 09/05/23 History mcg/actuation nasal symptoms spray,suspension apixaban 5 mg tablet (Eliquis) 5 mg PO BID #60 tabs 10/24/22 09/05/23 Rx fluoxetine 20 mg tablet 30 mg PO QAM 05/22/23 09/05/23 History triamterene 37.5 0 cap PO QAM 05/22/23 09/05/23 History mg-hydrochlorothiazide 25 mg capsule verapamil 360 mg 24 hr 360 mg PO QAM 05/22/23 09/05/23 History capsule,extended release levothyroxine 112 mcg tablet 112 mcg PO QAM #90 tabs 08/10/23 09/05/23 Rx diphenoxylate-atropine 2.5 1 tab PO QID PRN Other 09/05/23 09/05/23 History mg-0.025 mg tablet lorazepam 0.5 mg tablet 0 mg PO Q8H PRN anxiety 09/05/23 09/05/23 History potassium chloride 20 mEq 20 meq PO DAILY 09/05/23 09/05/23 History tablet,extended release(part/cryst) timolol maleate 0.25 % eye drops 1 drp ophthalmic (eye) QAM 09/05/23 09/05/23 History Past Med/Surg History Medical History (Updated 09/05/23 @ 14:49 by Miguel Chavarria PA-C) Cardiac murmur intermittent noted Moderate MR and TR on 2020 ECHO Breast cancer metastasized to axillary lymph node Left- diagnosed Mar 2023 Anaplasmosis hx Rheumatic fever hx childhood. Osteoporosis declines meds Dyslipidemia denies Depression Hypothyroidism History of CVA (cerebrovascular accident) hx stroke 2009. no residuals. HTN (hypertension) Pacemaker Medtronic...last checked at EP office 04/06/23 Complete heart block Per EP records- s/p pacemaker placement 2016 Atrial fibrillation dx yrs ago. on Eliquis Surgical History (Updated 05/26/23 @ 13:07 by Reta Duncan RN) Port-A-Cath in place (05/25/23) Insertion Right Subclavian Access Port with Fluoroscopy(Right) - Breezy Ace, Status post left knee replacement (04/2021) complicated by joint infection - x4 surgeries total. Most recent Jan 2023. History of permanent cardiac pacemaker placement Family History Unknown Cancer Thyroid disorder History of arthritis Sister Breast cancer Other Family history non-contributory Denies family history of Ovarian cancer Prostate cancer Myocardial infarction Colorectal cancer Social History (Updated 05/12/23 @ 11:59 by Stephanie Sanchez RN) Smoking Status: Never smoker Second Hand Exposure: No; Do You Dip or Chew Tobacco: No; Hx Substance Use: No Preferred Language: Burmese Communication Ability: Effective Visual Impairment: No Limitations Hearing Ability: Normal Front Line Leader Required: No Beliefs That Will Affect Care: None marital status: Current Living Situation: Spouse current occupational status: retired How many Children do You have: 1 Feels Safe at Home: Yes Diet: regular during the past year weight has: remained stable Seatbelt Use: always Sunscreen Use: Yes Assistive Devices: None Physical Exam Physical Exam: Physical Exam: General: In no acute distress, stated age, chronically ill appearing but non- toxic appearing HEENT: Normocephalic, atraumatic, no scleral icterus, pupils around round, symmetrical, and reactive to light, dry mucus membranes, trachea midline, no thyromegaly Chest/Pulm: Mediport located in the right upper chest is without signs of infection, No respiratory distress, symmetrical chest expansion, clear breath sounds throughout Cardiac: irregular rate and rhythm, no murmurs noted Abdomen: Negative for ascites and bruising, normoactive bowel sounds, soft, non-tender to palpation throughout Musculoskeletal: Symmetrical and without signs of acute trauma, upper and lower extremities with full ROM, no atrophy, spasticity, or flaccidity Extremities: Radial, dorsalis pedis, and posterior tibial pulses are intact and symmetrical, no edema noted in the BL LE's Skin: Warm, dry, no rashes , lesions, or scars noted Neuro: Alert and oriented to person, place, month, year, and president, no focal defects, CN II-XII tested and intact, no tremors noted Psych: No acute distress, calm and cooperative during the exam Results & Data Results & Data Vital Signs (Past 12 Hours) Vital Signs Temp Pulse Pulse Resp BP BP Pulse Ox 09/05/23 12:37 106 H 95 09/05/23 12:37 104 H 20 147/94 H 96 09/05/23 12:37 97 09/05/23 12:37 37 C 105 H 22 147/94 H 96 09/05/23 12:32 100 H O2 Del Method 09/05/23 12:37 Room Air 09/05/23 12:37 Room Air 09/05/23 12:37 Room Air 09/05/23 12:37 Room Air 09/05/23 12:32 Laboratory Results Abnormal lab results 09/05/23 09/05/23 Range/Units 12:33 13:26 WBC 14.85 H (4.8-10.8) K/ul RBC 2.46 L (4.20-5.40) M/uL Hgb 7.6 L (12.0-16.0) g/dl Hct 22.8 L (37.0-47.0) % RDW Std Deviation 64.1 H (36.4-46.3) fL RDW Coeff of Hernan 19.4 H (11.5-14.5) % Neut # (Auto) 13.34 H (1.40-6.50) K/uL Lymph # (Auto) 1.12 L (1.20-3.40) K/uL PT 12.1 H (9.0-12.0) Seconds APTT 57 H (21-31) Seconds Sodium 134 L (136-145) mmol/L BUN/Creatinine Ratio 25.0 H (10-20) Calcium 8.5 L (8.6-10.3) mg/dl Magnesium 1.4 L (1.7-2.4) mg/dl Iron 25 L (35-150) mcg/dl Transferrin % Sat 9 L (15-50) % Total Protein 5.6 L (6.0-8.3) gm/dl Albumin 3.3 L (3.4-5.0) gm/dl Globulin 2.3 L (2.5-4.0) gm/dl Crossmatch See Detail Diagnostic Findings Chest X-Ray 09/05/23 12:08 XR chest 1V portable HISTORY: weakness COMPARISON: Chest 05/25/2023. FINDINGS: No pneumothorax. No pleural effusions. Is left-sided dual-chamber pacemaker. The heart remains moderately enlarged. This remains unchanged. There is a right subclavian Port-A-Cath which terminates in the proximal SVC. This is also unchanged. No focal lung consolidations to suggest pneumonia. No evidence for pulmonary edema. No acute fractures. IMPRESSION: No significant change compared to the prior study. No acute process. Stable cardiomegaly. ACT 112: Negative or not required by law. Electronically signed by: Jaun Olivares M.D. 09/05/2023 12:47 PM ECG Additional Comments: Atrial fibrillation with premature ventricular or aberrantly conducted complexes Right bundle branch block Left anterior fascicular block Bifascicular block Septal infarct , age undetermined Abnormal ECG When compared with ECG of 16-JAN-2023 12:48, Atrial fibrillation has replaced Atrial flutter (RBBB and left anterior fascicular block) has replaced Incomplete right bundle branch block Septal infarct is now Present Code Status & VTE Plan Code Status Full code VTE Prophylaxis Plan VTE Prophylaxis will be ordered: Yes Supervising Physician Co-Signing Physician Notes Patient seen and examined, chart reviewed, case discussed with Miguel Chavarria PA-C and I agree with the assessment and plan as above except as otherwise noted Labs and images reviewed 78yo F hx L breast ca on Taxol/PHesgo, afib on eliquis, T3 heart block s/o pacer, CVA presents with extremity paresthesias, weakness, and foul-smelling urine for 24 hours. On ER assessment she has a hemoglobin decreased from 12.8 07/01/2019 4-7.6 with mild tachycardia, and a leukocytosis with neutrophilic predominance but no left shift. Chest x-ray does not show any evidence of fluid overload or pneumonia. Patient was Hemoccult positive in the ER. Patient has acute severe weakness with Hemoccult positive stool although no melena hematochezia, and BUN is not elevated and no epigastric pain. She has a transferrin saturation of 9% and is recently also received chemotherapy. Suspect chemotherapy suppressed combined with iron deficiency most likely etiology, does have a positive stool and was placed on PPI drip with GI consult as a precaution although low overall suspicion for GI bleed. last dose of chemo was Thursday. Will transfuse for acute symptomatic anemia, additionally suspect that hemoglobin will further drop post crystalloid resuscitation. Subsequently follow transfusion goal of either 7.0 (no history of ischemic heart disease, although has had complete heart block), or symptomatic anemia. Hemoglobin trended overnight. Recommend Venofer course once she is no longer requiring blood. B12/folate and reticulocyte count for RI index calculation have been ordered. Magnesium is low, repleted on admission. She does have a leukocytosis with foul-smelling urine and acute weakness, UA is pending but this has not been able to be drawn as patient is clinically very dry and has not produced enough urine to run a proper sample. 500 cc additional fluids infusing at time of assessment, this will meet 30 cc/kg IBW goal. ABW is only 1875cc and pt is also receiving blood. She does not appear toxic. Blood cultures have been drawn agree with Olvin as above, no history of resistant organisms. UC has been sent, UA will be performed once patient's urine production increases. PG Care Time/CCT Total # of Minutes Spent Total Time Spent with Patient: Total time spent is greater than 50% in coordination of care (as documented) at patient's floor/unit and/or counseling patient: [place] [address] INT INP/OBS CARE 3/75MIN Patient Type Established History Comprehensive Exam Comprehensive Medical Decision Making High Complexity Diagnoses Anemia D64.9 Generalized weakness R53.1 Atrial fibrillation with RVR I48.91 Leukocytosis D72.829 Hypomagnesemia E83.42 Chemotherapy-induced peripheral neuropathy G62.0; T45.1X5A Depression F32.9
[2023-09-05 13:52] LABS: Reticulocyte % 0.79 % (0.50-2.00); Reticulocytes # 0.02 10^6/uL (0.020-0.100)
[2023-09-05] MEDS ORDERED: SODIUM CHLORIDE 0.9% 250 ML IV PRN (14:11)
[2023-09-05] MEDS ORDERED: LACTATED RINGER'S 1,000 ML IV SCH (14:15)
[2023-09-05 14:27] LABS: Phosphorus 2.2 mg/dl (2.5-4.9)
[2023-09-05] MEDS: FAMOTIDINE 20MG IV PUSH 20 MG/5 ML SYR IV STA (14:30)
[2023-09-05] MEDS: CEFEPIME 2,000 MG/20 ML VIAL IV STA (14:30)
[2023-09-05] MEDS: LACTATED RINGER'S 500 ML IV ONE (14:34)
[2023-09-05] MEDS: VERAPAMIL HCL 180 MG TABCR PO STA (14:39)
[2023-09-05] MEDS: GABAPENTIN 100 MG CAP PO STA (14:39)
[2023-09-05] MEDS: PANTOprazole 40 MG in SYRINGE 0 ML IV ONE (14:40)
[2023-09-05] MEDS: PANTOprazole 80 MG in DEXTROSE 5% 100 ML IV ONE (14:40)
[2023-09-05 14:42] LABS: Folate (Folic Acid),Ser orPlas 7.89 ng/ml (>5.38)
[2023-09-05] MEDS: LACTATED RINGER'S 1,000 ML IV SCH (14:48)
[2023-09-05] MEDS ORDERED: SODIUM PHOSPHATE 3 MMOL/1 ML INFUSION IV STA (15:26)
[2023-09-05] MEDS ORDERED: LORazepam 0.5 MG TAB PO PRN (16:12)
--- NOTE | 2023-09-05 16:26 | Ultrasound Report ---
ULTRASOUND OF THE PELVIS CLINICAL HISTORY: Anemia. Spotting. COMPARISON STUDY: Pelvic CT dated 05/27/2023. TECHNIQUE: Real-time, grayscale, and color flow sonography of the pelvis is performed transabdominall y. Images are reviewed in the transverse and longitudinal planes. FINDINGS: Uterus: The uterus is enlarged, heterogeneous, and infiltrated by densely shadowing calcified fibroid s. This was also seen on the recent CT scan. The uterus measures 12.1 x 9.5 x 9.8 cm. Endometrium: The endometrium is completely obscured by extensive calcified fibroids Ovaries: The ovaries were not visualized due to overlying bowel gas. Pelvis: There is no free fluid in the cul-de-sac. No concerning adnexal lesion is seen. IMPRESSION: 1. Enlarged and heterogeneous uterus which is diffusely infiltrated by density calcified fibroids. 2. The endometrium is completely obscured by shadowing calcified fibroids. 3. Nonvisualization of the ovaries. 4. No adnexal lesion is seen. ACT 112: Negative or not required by law. Electronically signed by: Honorio Jeffers M.D. 09/05/2023 4:25 PM
[2023-09-05] MEDS: SODIUM PHOSPHATE 15 MMOL in DEXTROSE 5% 250 ML IV ONE (16:58)
[2023-09-05 17:28] LABS: Adenovirus PCR Not Detected (NotDetected); Bordetella parapertussis PCR Not Detected (NotDetected); Bordetella pertussis PCR Not Detected (NotDetected); Chlamydia pneumoniae PCR Not Detected (NotDetected); Coronavirus 229E PCR Not Detected (NotDetected); Coronavirus CoV-2 (COVID19)PCR Not Detected (NotDetected); Coronavirus HKU1 PCR Not Detected (NotDetected); Coronavirus NL63 PCR Not Detected (NotDetected); Coronavirus OC43PCR Not Detected (NotDetected); Human Metapneumovirus PCR Not Detected (NotDetected); Influenza A PCR Not Detected (NotDetected); Influenza B PCR Not Detected (NotDetected); Mycoplasma pneumoniae PCR Not Detected (NotDetected); Parainfluenza Virus 1 PCR Not Detected (NotDetected); Parainfluenza Virus 2 PCR Not Detected (NotDetected); Parainfluenza Virus 3 PCR Not Detected (NotDetected); Parainfluenza Virus 4 PCR Not Detected (NotDetected); Respiratory Syncytial VirusPCR Not Detected (NotDetected); Rhinovirus/Enterovirus PCR Not Detected (NotDetected)
[2023-09-05 18:36] LABS: Hematocrit (blood only) 31.1 % (37.0-47.0); Hemoglobin 10.3 g/dl (12.0-16.0); Mean Corpuscular Hemoglobin 30.3 pg (25.0-34.0); Mean Corpuscular Hgb Conc 33.1 g/dL (32.0-36.0); Mean Corpuscular Volume 91.5 fL (80.0-100.0); Mean Platelet Volume 10.5 fL (9.4-12.4); Platelet Count 236 K/uL (130-400); RDW Coefficient of Variation 19.5 % (11.5-14.5); RDW Standard Deviation 63.9 fL (36.4-46.3); White Blood Count 18.85 K/ul (4.8-10.8)
[2023-09-05] MEDS: cefTRIAXone SODIUM 2,000 MG in DEXTROSE 5 % MINI-B 50 ML IV SCH (19:19)
[2023-09-05] MEDS: GABAPENTIN 100 MG CAP PO SCH (21:05)
[2023-09-05] MEDS: PANTOprazole 40 MG in SYRINGE 0 ML IV SCH (21:05)
[2023-09-06 00:41] LABS: Hematocrit (blood only) 27.7 % (37.0-47.0); Hemoglobin 9.1 g/dl (12.0-16.0); Mean Corpuscular Hemoglobin 30.1 pg (25.0-34.0); Mean Corpuscular Hgb Conc 32.9 g/dL (32.0-36.0); Mean Corpuscular Volume 91.7 fL (80.0-100.0); Mean Platelet Volume 10.4 fL (9.4-12.4); Platelet Count 191 K/uL (130-400); RDW Coefficient of Variation 19.4 % (11.5-14.5); RDW Standard Deviation 64.1 fL (36.4-46.3); Red Blood Count 3.02 M/uL (4.20-5.40); White Blood Count 13.17 K/ul (4.8-10.8)
[2023-09-06 01:38] LABS: A calco-baum cmplx NotReported Not Detected (NotDetected); Bact fragilis Not Reported Not Detected (NotDetected); Blood Culture Id Panel See PCR Comment (NotDetected); C auris Not Reported Not Detected (NotDetected); CTX-M Resistant Gene Not Detected (NotDetected); Calbicans Not Reported Not Detected (NotDetected); Candida glabrata Not Reported Not Detected (NotDetected); Candida krusei Not Reported Not Detected (NotDetected); Cneoformans/gatti Not Reported Not Detected (NotDetected); Cparapsilosis Not Reported Not Detected (NotDetected); E cloacae compx Not Reported Not Detected (NotDetected); Efaecalis Not Reported Not Detected (NotDetected); Efaecium Not Reported Not Detected (NotDetected); Enterobacterales DETECTED (NotDetected); Enterobacterales Not Reported DETECTED (NotDetected); Escherichia coli Not Reported DETECTED (NotDetected); H influenzae Not Reported Not Detected (NotDetected); IMP Resistant Gene Not Detected (NotDetected); K aerogenes Not Reported Not Detected (NotDetected); KPC Resistant Gene Not Detected (NotDetected); Koxytoca Not Reported DETECTED (NotDetected); Kpneumoniae grp Not Reported Not Detected (NotDetected); Lmonocyt Not Reported Not Detected (NotDetected); N meningitidis Not Reported Not Detected (NotDetected); NDM Resistant Gene Not Detected (NotDetected); OXA 48 Like Resistant Gene Not Detected (NotDetected); P aeruginosa Not Reported Not Detected (NotDetected); Proteus spp Not Reported Not Detected (NotDetected); Salmonella spp Not Reported Not Detected (NotDetected); Smarcescens Not Reported Not Detected (NotDetected); Staph lugdunensis Not Reported Not Detected (NotDetected); Staph spp. Not Reported Not Detected (NotDetected); Staphaureus Not Reported Not Detected (NotDetected); Staphepi Not Reported Not Detected (NotDetected); Stenmaltophilia Not Reported Not Detected (NotDetected); Strep agal(GrpB) Not Reported Not Detected (NotDetected); Strep pneum Not Reported Not Detected (NotDetected); Strep pyog (GrpA) Not Reported Not Detected (NotDetected); Strep spp Not Reported Not Detected (NotDetected); VIM Resistant Gene Not Detected (NotDetected); mcr-1 Colistin Resistant Gene Not Detected (NotDetected)
[2023-09-06] MEDS: CEFEPIME 2,000 MG in SYRINGE 0 ML IV SCH (02:30)
[2023-09-06 02:40] LABS: Appearance Urine Clear (Clear); Bacteria Urine Automated Negative (Negative); Bilirubin Urine Negative (Negative); Blood Urine 3+ (Negative); Cast Urine Automated 0 /lpf (0-5); Color Urine Yellow; Glucose Urine UA Negative (Negative); Ketones Urine Negative (Negative); Leukocyte Esterase Urine 1+ (Negative); Nitrite Urine Negative (Negative); Protein Urine Negative (Negative); Specific Gravity Urine 1.004 (1.000-1.030); Urobilinogen Urine Negative (Negative)
[2023-09-06] MEDS: LEVOTHYROXINE SODIUM 112 MCG TABLET PO SCH (05:42)
[2023-09-06 06:52] LABS: Hematocrit (blood only) 26.4 % (37.0-47.0); Mean Corpuscular Hemoglobin 30.7 pg (25.0-34.0); Mean Corpuscular Hgb Conc 34.1 g/dL (32.0-36.0); Mean Corpuscular Volume 90.1 fL (80.0-100.0); Mean Platelet Volume 10.2 fL (9.4-12.4); Platelet Count 204 K/uL (130-400); RDW Coefficient of Variation 19.5 % (11.5-14.5); Red Blood Count 2.93 M/uL (4.20-5.40); White Blood Count 10.97 K/ul (4.8-10.8)
[2023-09-06 07:12] LABS: Albumin Globulin Ratio 1.4 (0.9-2); Albumin Level 2.9 gm/dl (3.4-5.0); BUN Creatinine Ratio 19.7 (10-20); Bilirubin,Total 0.5 mg/dl (0.2-1.0); Calcium 7.9 mg/dl (8.6-10.3); Creatinine Clr Calc Pharmacy 56.8 ml/min; Est GFR (African American) 95.2 ml/min; Est GFR (Non-African American) 82.2 ml/min; Globulin 2.1 gm/dl (2.5-4.0); Magnesium 2.3 mg/dl (1.7-2.4); Potassium 3.5 mmol/L (3.5-5.1)
[2023-09-06 07:38] LABS: INR 1.1 (0.9-1.1); Prothrombin Time 11.7 Seconds (9.0-12.0)
--- NOTE | 2023-09-06 07:53 | Hospitalist Progress Note ---
Date of Service September 06, 2023 Assessment & Plan (1) Septic shock: Plan: Patient gram-negative bacteremia urinary source. Preliminary PCR suggest Klebsiella. Patient on cefepime therapy. Blood cultures obtained at time of code on the second set.\\ MRSA nasal swabs obtained Patient initiated on blood pressure support after a liter of crystalloid preceding her CODE BLUE Pending CT scan abdomen pelvis and CT scan chest with contrast to rule out PE (2) Atrial fibrillation with RVR: Plan: -afib RVR with HR known hx of Afib and has ppm concern would be from uti poa, hypomagnesemia plus not taking home verapamil -High sen trop is WNL on presentation additional troponin pending -S/P home dose of Verapamil and 2gm IV amg sulfate in the ED -Will need to hold Eliquis until acute blood anemia is ruled out (3) Anemia: Plan: anemia source unclear, Hgb of 7.6,is having some gynb bleeding, U/s confirms fibroids which could lead to dysfunctional bleeding typically on eliquis no on hold -Blood consent obtained on admission, iron low tibc normal also with h/p PE when breast cancer was diagnosed, 05/30 BID PPI Pt generally weak with anemia, PT/OT eval (4) Chemotherapy-induced peripheral neuropathy: Plan: -left breast cancer, last tx 08/25/23 neoadjuvant taxol/phesgo Likely due to a combination of chemotherapy exacerbated by low mag levels -Will start 100 mg BID Gabapentin for now, patient is in agreement with starting during admission Pt has hyponatremia, and low phosphorous, will use sodium phos , follow hyponatremia (5) Depression: Plan: -Continue fluoxetine Plan [place] is guarded family is updated transition to ICU care with Dr. Boggs Admission and Anticipated Discharge Date Admission Date: September 05, 2023 Subjective Patient was seen on 2 occasions today. First visit the patient was without significant distress felt weak and tired had no focal complaints was informed that she did have urinary tract infection and were continue cefepime therapy In the afternoon around 1300 hrs. was notified by nursing of low blood pressure. Bolus was ordered. I was summoned to the bedside the patient was hypotensive in Trendelenburg she was hypothermic here attempted to close placed warm blankets ordered additional fluid bolus and albumin however the patient lost her consciousness and blood pressure and a CODE BLUE was called. Patient was resuscitated CPR was performed patient received at least 4 doses of epinephrine and 3 bicarbonate infusions. Blood pressure and pulse was regained CPR was stopped patient was intubated by the GlideScope by Dr. Boggs. Levophed was initiated patient was moved to the ICU Physical Exam Physical Exam: Examination prior to the code patient was oriented and talking to me she, describes right-sided abdominal pain which is in the mid abdomen I did palpate her right upper quadrant there is no significant tenderness or hepatosplenomegaly I did palpate her lower quadrant there is no rebound or guarding guarding. Her card exam is regular at the time she was in a paced rhythm on the monitor her lungs were clear Results & Data Results & Data Vital Signs (Past 12 Hours) Vital Signs Temp Pulse Pulse Resp BP BP Pulse Ox 09/06/23 02:29 98.4 F 112 H 20 130/82 95 09/05/23 23:21 97.7 F 78 16 109/76 94 09/05/23 21:56 86 09/05/23 21:53 09/05/23 21:30 120 H 09/05/23 21:25 98.7 F 108 H 22 119/77 96 09/05/23 21:00 90/55 L 09/05/23 21:00 76 16 92 09/05/23 20:00 107/69 09/05/23 20:00 85 18 93 Pulse Ox O2 Del Method O2 Del Method 09/06/23 02:29 Room Air 09/05/23 23:21 Room Air 09/05/23 21:56 09/05/23 21:53 95 Room Air 09/05/23 21:30 09/05/23 21:25 Room Air 09/05/23 21:00 09/05/23 21:00 09/05/23 20:00 09/05/23 20:00 Laboratory Results Reviewed CBC reviewed chemistry reviewed coagulation studies reviewed postintubation chest x-ray Discussed case with Dr. Boggs Updated family at bedside PG Care Time/CCT Total # of Minutes Spent Total Time Spent with Patient: Total time spent is greater than 50% in coordination of care (as documented) at patient's floor/unit and/or counseling patient: Coding Diagnoses Septic shock A41.9; R65.21 Atrial fibrillation with RVR I48.91 Anemia D64.9 Chemotherapy-induced peripheral neuropathy G62.0; T45.1X5A Depression F32.9
[2023-09-06] MEDS: VERAPAMIL HCL 180 MG TABCR PO SCH (08:02)
[2023-09-06] MEDS: POTASSIUM CHLORIDE CRTAB 20 MEQ TABCR PO SCH (08:02)
[2023-09-06] MEDS: FLUoxetine HCL 10 MG CAP PO SCH (08:03)
[2023-09-06] MEDS: TIMOLOL MALEATE 0.25% OP SOLN 5 ML BTL OP SCH (08:04)
[2023-09-06] MEDS: FLUoxetine HCL 20 MG CAP PO SCH (08:05)
[2023-09-06] MEDS: ACETAMINOPHEN 1,000 MG/100 ML VIAL IV PRN (12:28)
[2023-09-06 12:39] LABS: Hematocrit (blood only) 28.4 % (37.0-47.0); Hemoglobin 9.4 g/dl (12.0-16.0); Mean Corpuscular Hemoglobin 30.4 pg (25.0-34.0); Mean Corpuscular Hgb Conc 33.1 g/dL (32.0-36.0); Mean Corpuscular Volume 91.9 fL (80.0-100.0); Mean Platelet Volume 10.2 fL (9.4-12.4); Platelet Count 236 K/uL (130-400); RDW Coefficient of Variation 19.8 % (11.5-14.5); RDW Standard Deviation 65.5 fL (36.4-46.3); Red Blood Count 3.09 M/uL (4.20-5.40); White Blood Count 9.41 K/ul (4.8-10.8)
[2023-09-06] MEDS: HEPARIN 100 UNIT/ML 5ML FLUSH FLUSH PRN (12:58)
[2023-09-06] MEDS: SODIUM CHLORIDE 0.9% 500 ML IV ONE ×2 (13:05→13:22)
[2023-09-06] MEDS ORDERED: ALBUMIN 25% 25 GM/100 ML VIAL IV STA (13:22)
[2023-09-06 13:26] LABS: Hematocrit (blood only) 30.3 % (37.0-47.0); Hemoglobin 9.6 g/dl (12.0-16.0); Mean Corpuscular Hemoglobin 30.4 pg (25.0-34.0); Mean Corpuscular Hgb Conc 31.7 g/dL (32.0-36.0); Mean Corpuscular Volume 95.9 fL (80.0-100.0); Mean Platelet Volume 10.2 fL (9.4-12.4); Nucleated RBC # (auto) 0.02 K/uL (0.00-0.12); Nucleated RBC % (auto) 0.2 %; Platelet Count 225 K/uL (130-400); RDW Coefficient of Variation 19.8 % (11.5-14.5); RDW Standard Deviation 68.1 fL (36.4-46.3); Red Blood Count 3.16 M/uL (4.20-5.40); White Blood Count 10.92 K/ul (4.8-10.8)
--- NOTE | 2023-09-06 14:00 | Procedure Note ---
Procedure Note Date of Service September 06, 2023 Note INTUBATION PROCEDURE NOTE: Attending: Dr Kim Boggs MD Patient was evaluated and plan to intubate was made for cardiac arrest and unresponsiveness. Sedative agent used: None Paralysis agent used: None Emergent consent was implied given patients rapidly declining clinical status and need for airway protection. The patient was prepared in the appropriate fashion. The patient was easily pre-oxygenated by using [id number]-[id number]-yept ventilation. With help of glide scope grade 2 vocal cords were visualized and 7.5 Romanian ETT was introduced on first attempt to 23 cm at the lip. The stylette was removed and balloon was inflated with 10mL of air. Appropriate Colorimetric change was appreciated for at least 10 breaths. Bilateral chest rise and breath sounds were appreciated without air sounds in the epigastrium. Patient tolerated the procedure well and there were no immediate complications. Chest Xray to follow for confirming placement. Coding CPT Codes Resuscitation - Resuscitation: 26341 Endotracheal Intubation, emergency ([id number]) [facility] [place] Procedure Codes (Charges) Resuscitation Resuscitation: 32467 Endotracheal Intubation, emergency
--- NOTE | 2023-09-06 14:00 | Procedure Note ---
Procedure Note Date of Service September 06, 2023 Note CODE BLUE note: CODE BLUE was called as patient was found to be unresponsive. As per RN patient was complaining of right flank pain earlier today which got worse, patient was hypotensive and unresponsive CPR was already started when I entered the room. Monitor showed paced rhythm with no ST-T wave changes. Patient was given total 4 rounds of epi, 3 A of bicarb. ROSC was achieved at the end of it. She was started on Levophed at 0.4 and transferred to the ICU Patient's family/ was in the room" to happen. I personally spoke with the patient after achieving ROSC. Please note the above document was generated using voice recognition software. It may contain grammatical, syntax or spelling errors.Any formal questions or concerns about the content, text or information contained within the body of this dictation should be directly addressed to the provider for clarification. Coding CPT Codes Resuscitation - Resuscitation: 87365 Heart/lung resuscitation CPR ([id number]) [facility] Procedure Codes (Charges) Resuscitation Resuscitation: 33062 Heart/lung resuscitation CPR
[2023-09-06] MEDS ORDERED: STAT IV Infusion **Titration per Protocol STA (14:03)
--- NOTE | 2023-09-06 14:16 | XRay Report ---
SINGLE VIEW CHEST CLINICAL HISTORY: Respiratory failure. Intubation. FINDINGS: An AP, portable, supine chest radiograph is compared to study dated 09/05/2023 and correlate d with chest CT dated 05/27/2023. An endotracheal tube has been placed. The tip projects approximatel y 3 cm above the monika. A right subclavian central venous infusion port and a 2-lead cardiac pacemak er are unchanged in position. The heart is markedly enlarged noting atherosclerotic calcification of the thoracic aorta. There is pulmonary vascular congestion. Bilateral airspace opacities likely repre sent interstitial edema. There is chronic elevation right hemidiaphragm. Atelectasis is noted at the lung bases. No large pleural effusion or pneumothorax is seen. The skeletal structures are osteopenic . The bony thorax is grossly intact. IMPRESSION: 1. Endotracheal tube placement as above. 2. Cardiomegaly and cardiac pacemaker with evidence of congestive failure. ACT 112: Negative or not required by law. Electronically signed by: Honorio Jeffers M.D. 09/06/2023 2:15 PM
[2023-09-06] MEDS: Standard Conc; 4 MG in 250 mL for HYPOTENSION IV SCH (14:47)
[2023-09-06] MEDS: HYDROCORTISONE SOD SUCCINATE 100 MG/2 ML VIAL IV ONE (14:49)
[2023-09-06] MEDS ORDERED: SODIUM BICARBONATE 8.4% 150 MEQ in WATER, STERILE 1,000 ML IV SCH (15:00)
[2023-09-06] MEDS ORDERED: VANCOMYCIN HCL 1,500 MG in SODIUM CHLORIDE 0.9% 500 ML IV ONE ×2 (15:03→15:15)
[2023-09-06] MEDS: fentaNYL citrate PF 100 MCG/2 ML VIAL ONE (15:03)
[2023-09-06] MEDS ORDERED: VANCOMYCIN CONSULT ACTIVE PRN (15:03)
[2023-09-06 15:06] LABS: iSTAT Art Bld Gas pCO2 Correct 26 mmHg (35-46); iSTAT Art Bld Gas pH Corrected 7.552 (7.35-7.45); iSTAT Arterial Blood Gas HCO3 22 meg/L (19-24); iSTAT Arterial Blood Gas pCO2 26 mmHg (35-46); iSTAT Arterial Blood Gas pH 7.55 (7.35-7.45); iSTAT Arterial Blood Gas pO2 205 mmHg (80-95); iSTAT Arterial Blood Gas pO2 C 205; iSTAT Carbon Dioxide 23 mmol/L (24-31); iSTAT Hematocrit 24 % (37-47); iSTAT Hemoglobin 8.2 g/dl (12.0-16.0); iSTAT Potassium 5.2 mmol/L (3.3-5.0); iSTAT Site Art Line; iSTAT Sodium 141 mmol/L (135-144)
[2023-09-06] MEDS: NOREPINEPHRINE/D5W 4 MG/250 ML IV ONE (15:07)
[2023-09-06] MEDS: NOREPINEPHRINE/D5W 4 MG/250 ML PLCT IV SCH (15:09)
[2023-09-06] MEDS: VASOPRESSIN 20 UNITS in 0.9 % SODIUM CHLORIDE 100 ML IV SCH (15:09)
--- NOTE | 2023-09-06 15:13 | Critical Care Consultation ---
Date of Consultation September 06, 2023 Assessment & Plan (1) Septic shock: (2) Heme positive stool: (3) Status post chemotherapy: (4) Weakness: (5) History of CVA (cerebrovascular accident): Plan Reason Critically Ill: 78-year-old female past medical history of stage III breast cancer on chemotherapy, A-fib on apixaban, dyslipidemia presents to the hospital with generalized weakness. Had a CODE BLUE and was sent to the ICU for further care Neuro - [facility] ICU: Unable to assess Cardiac - -- Cardiac arrest Etiology is not clear right now Could be septic POCUS showed increased RVOT but patient has underlying history of significant bilateral atrial enlargement. EF seem to be decreased Respiratory - -- VDRF Postcardiac arrest Continue with ventilatory support Keep RASS -1 GI - -- Right flank pain Etiology is not clear POCUS did not show any free fluid within the belly RENAL/LYTES - -- Monitor BUNs/creatinine Avoid nephrotoxic medication - -- Continue with Hou catheter ENDO - -- ICU hyperglycemia protocol HEME - -- Normocytic anemia ID - -- No clear source of infection UA was negative for bacteria Did have chemotherapy recently --Prophylaxis VTE: Apixaban at home GI: Pantoprazole Lines: Right femoral, right femoral radial, Hou, ETT Diet: N.p.o. Plan: Strict ins and outs Follow-up random cortisol, TSH, procalcitonin Repeat CBC, CMP, blood culture Add vasopressin to Levophed and if need be additional epinephrine. Additional 2 A of bicarb will be given to the patient. Follow-up ABG Give a dose of vancomycin, continue with cefepime and add Flagyl Will consider bicarb drip based on the lab finding Family were at bedside including , daughter as well as granddaughter were updated regarding patient's critical condition and the need for multiple vasopressors. I have personally spent 102 minutes of critical care time in the direct management of this patient. This is a life/limb threatening event. This includes time spent evaluating patient, direct bedside care, chart review, placing orders, interpretation of diagnostic studies, discussion with consultants, patient, and family members, as well as other required patient management activities. This time is exclusive of all separately billable procedures, and teaching time and separate from and in addition to any other critical care service time. History of Present Illness Attending Physician: Alden Monet MD History of Present Illness 78-year-old female was admitted to the hospital for generalized weakness. Past medical history: Stage IIIc breast cancer on chemotherapy, A-fib on Eliquis, complete heart block status post permanent pacemaker, hypertension, CVA She was found to be anemic and her apixaban was hold for 24 hours. CODE BLUE was called as patient was found to be unresponsive. As per the RN patient was complaining of right flank pain following which she got hypotensive, hypothermic and then unresponsive After patient was resuscitated. She was intubated and brought to the ICU. In the ICU patient was already maxed out on Levophed. Vasopressin was added. She was given 200 mg of hydrocortisone. She was breathing over the vent in the high 30s, 25 mg of fentanyl was given Extremities were cool to touch. She was not following any commands. History was obtained from previous chart Allergies Allergy/AdvReac Type Severity Reaction Status Date / Time simvastatin Allergy Unknown muscle Verified 07/20/23 13:38 aches Sulfa (Sulfonamide Allergy Unknown ? rash Verified 07/20/23 13:38 Antibiotics) Home Medications Medication Instructions Recorded Confirmed Type acetaminophen 325 mg tablet 325 mg PO Q6H PRN Pain 01/10/19 09/05/23 History (Tylenol) cholecalciferol (vitamin D3) 25 25 mcg PO QPM 08/06/22 09/05/23 History mcg (1,000 unit) capsule fluticasone propionate 50 2 spray intranasal UD PRN allergy 08/06/22 09/05/23 History mcg/actuation nasal symptoms spray,suspension apixaban 5 mg tablet (Eliquis) 5 mg PO BID #60 tabs 10/24/22 09/05/23 Rx fluoxetine 20 mg tablet 30 mg PO QAM 05/22/23 09/05/23 History triamterene 37.5 0 cap PO QAM 05/22/23 09/05/23 History mg-hydrochlorothiazide 25 mg capsule verapamil 360 mg 24 hr 360 mg PO QAM 05/22/23 09/05/23 History capsule,extended release levothyroxine 112 mcg tablet 112 mcg PO QAM #90 tabs 08/10/23 09/05/23 Rx diphenoxylate-atropine 2.5 1 tab PO QID PRN Other 09/05/23 09/05/23 History mg-0.025 mg tablet lorazepam 0.5 mg tablet 0 mg PO Q8H PRN anxiety 09/05/23 09/05/23 History potassium chloride 20 mEq 20 meq PO DAILY 09/05/23 09/05/23 History tablet,extended release(part/cryst) timolol maleate 0.25 % eye drops 1 drp ophthalmic (eye) QAM 09/05/23 09/05/23 History Patient History Medical History Cardiac murmur intermittent noted Moderate MR and TR on 2020 ECHO Breast cancer metastasized to axillary lymph node Left- diagnosed Mar 2023 Anaplasmosis hx Rheumatic fever hx childhood. Osteoporosis declines meds Dyslipidemia denies Depression Hypothyroidism History of CVA (cerebrovascular accident) hx stroke 2009. no residuals. HTN (hypertension) Pacemaker Med[employer]...last checked at EP office 04/06/23 Complete heart block Per EP records- s/p pacemaker placement 2016 Atrial fibrillation dx yrs ago. on [facility] Surgical History (Updated 09/05/23 @ 15:07 by Honorio Kaufman MD) Port-A-Cath in place (05/25/23) Insertion Right Subclavian Access Port with Fluoroscopy(Right) - Breezy Ace, Status post left knee replacement (04/2021) complicated by joint infection - x4 surgeries total. Most recent Jan 2023. History of permanent cardiac pacemaker placement Family History Unknown Cancer Thyroid disorder History of arthritis Sister Breast cancer Other Family history non-contributory Denies family history of Ovarian cancer Prostate cancer Myocardial infarction Colorectal cancer Social History Smoking Status: Never smoker Second Hand Exposure: No; Do You Dip or Chew Tobacco: No; Hx Alcohol Use: No Hx Substance Use: No Preferred Language: Maldivian Communication Ability: Effective Visual Impairment: No Limitations Hearing Ability: Normal Booth Operator Required: No Beliefs That Will Affect Care: None marital status: Current Living Situation: Spouse Current Living Situation Comment: with current occupational status: retired How many Children do You have: 1 Feels Safe at Home: Yes Safety Concerns: Feels Safe At This Time Diet: regular during the past year weight has: remained stable Seatbelt Use: always Sunscreen Use: Yes Assistive Devices: Bedside Commode and Walker Assistive Devices Comment: glasses with patient, walker at home Review of Systems 2 Review of Systems: Unobtainable due to endotracheal tube Physical Exam 2 Physical Exam: Constitutional: No acute distress HEENT: Sluggish pupillary response Respiratory system: Decreased air entry bilaterally, no wheeze, rhonchi, mild crackles bilaterally, positive left-sided PPM CVS: S1-S2 positive, no murmurs or gallops, distant heart sounds Abdomen: Soft, nontender, nondistended, positive bowel sounds x4 Extremities: +1 pulses bilaterally radialis/ dorsalis pedis, no cyanosis, positive pitting edema bilaterally Neuro: Intubated Psych: Unable to assess G/U: Positive Hou Skin: no rashes, warm and dry Lymphatic: no cervical or axillary lymphadenopathy Results & Data Results & Data Vital Signs (Past 12 Hours) Vital Signs Temp Pulse Pulse Resp BP Pulse Ox O2 Del Method 09/06/23 13:16 65 78/58 L 09/06/23 13:00 63/46 L 09/06/23 11:57 36.7 C 71 20 91 Room Air 09/06/23 09:20 104 H 09/06/23 08:02 36.7 C 134 H 22 112/88 95 Room Air 09/06/23 02:29 36.9 C 112 H 20 130/82 95 Room Air Laboratory Results 09/06/23 13:10 Coding Level of Care Code 23462 CRITICAL CARE 1ST 30-74M Diagnoses Septic shock A41.9; R65.21 Heme positive stool R19.5 Status post chemotherapy Z92.21 Weakness R53.1 History of CVA (cerebrovascular accident) Z86.73 Comment [id number]
[2023-09-06] MEDS ORDERED: metroNIDAZOLE 500 MG/100 ML BAG IV SCH (15:15)
--- NOTE | 2023-09-06 15:15 | Procedure Note ---
Procedure Note Date of Service September 06, 2023 Note Procedure: Inserting ultrasound-guided central line painting machine operator: Dr. Kim Boggs Indication: Hypotension Consent: Emergent consent was implied Anesthesia: 1% lidocaine without epinephrine local. Procedure: Consent was verified and timeout performed. Appropriate imaging studies were reviewed prior to the procedure. Under aseptic and sterile condition, right femoral vein was accessed under direct ultrasound guidance. Guidewire was confirmed to be within the lumen of vein with the help of ultrasound. Catheter was introduced via Seldinger technique. Guide a wire was removed. Good non-pulsatile blood flow was appreciated from all the ports. The catheter was placed at 24 cm [address] in place. BioPatch was applied to the catheter and a sterile Tegaderm dressing was applied over the catheter with careful attention to sterility. Patient tolerated the procedure well. Blood loss: Less than 2 cc Complications: None Coding CPT Codes Tubes, Drains, and Vasc Access - Tubes, Drains, and Vasc Access: [id number] Place catheter in vein superior or inferior vena cava ([id number]) Tubes, Drains, and Vasc Access - Tubes, Drains, and Vasc Access: [id number] Ultrasound Guidance For Vascular ([id number]) [facility] [place] Codes (Charges) Tubes, Drains, and Vasc Access Procedure 1: Tubes, Drains, and Vasc Access: [id number] Place catheter in vein superior or inferior vena cava Procedure 2: Tubes, Drains, and Vasc Access: [id number] Ultrasound Guidance For Vascular
[2023-09-06] MEDS: SODIUM BICARB 8.4% INJ 50 MEQ/50 ML SYR IV STA (15:17)
[2023-09-06] MEDS: EPINEPHrine INJ 1 MG/ML AMP IV STA (15:18)
--- NOTE | 2023-09-06 15:18 | Procedure Note ---
Procedure Note Date of Service September 06, 2023 Note ARTERIAL LINE PROCEDURE NOTE: Procedure: Arterial Line Placement Attending: Dr. Kim Boggs MD Indication: Monitoring on Pressors Anesthesia: General Emergent consent was obtained A time-out was completed verifying correct patient, procedure, site, positioning, and implant(s) or special equipment if applicable. Patients right groin was prepped and draped in the usual sterile fashion. Ultrasound guidance was used to aid needle placement. A 20g Arrow arterial line was introduced into the right femoral artery. Catheter was threaded, and the needle was removed with appropriate pulsatile blood return. Good waveform was observed on the monitor. The patient tolerated the procedure well. Confirmation of placement with ultrasound. Images saved to medical record. Complications: None Blood Loss: Less than 2 cc Coding CPT Codes Tubes, Drains, and Vasc Access - Tubes, Drains, and Vasc Access: [id number] Arterial Cath/Cannulation Sampling/Monitoring/Transfusion ([id number]) Tubes, Drains, and Vasc Access - Tubes, Drains, and Vasc Access: [id number] Ultrasound Guidance For Vascular ([id number]) [facility] [place] Procedure Codes (Charges) Tubes, Drains, and Vasc Access Procedure 1: Tubes, Drains, and Vasc Access: [id number] Arterial Cath/Cannulation Sampling/Monitoring/Transfusion Procedure 2: Tubes, Drains, and Vasc Access: [id number] Ultrasound Guidance For Vascular
[2023-09-06 15:23] LABS: INR 1.4 (0.9-1.1); Partial Thromboplastin Ratio 1.1; Partial Thromboplastin Time 32 Seconds (21-31); Prothrombin Time 14.9 Seconds (9.0-12.0)
[2023-09-06] MEDS ORDERED: DC ALL ANTICOAGULANTS STA (15:27)
[2023-09-06] MEDS ORDERED: ALTEPLASE, RECOMBINANT 50 MG in EMPTY BAG 0 ML IV STA (15:27)
[2023-09-06] MEDS ORDERED: PRIMARY PLUMSET, PE LINED TUBING, 113 IN, NON-DEHP (2260-0500) IV STA (15:27)
[2023-09-06] MEDS ORDERED: SODIUM CHLORIDE 0.9% 50 ML BAG IV STA (15:27)
[2023-09-06] MEDS ORDERED: Nursing to Pharmacy Communication SCH (15:30)
[2023-09-06] MEDS ORDERED: ALTEPLASE 50mg IV over 2hr **For PE (high bleed/submassive) IV STA (15:34)
[2023-09-06] MEDS ORDERED: SODIUM BICARB 8.4% INJ 50 MEQ/50 ML SYR IV STA (15:38)
[2023-09-06] MEDS ORDERED: NSS 50 ML--Send if TPA given as SVP IV ONE (15:45)
[2023-09-06] MEDS ORDERED: PRIMARY PLUMSET--Send if TPA given as SVP IV ONE (15:45)
--- NOTE | 2023-09-06 15:47 | Discharge Summary ---
Date of Service September 06, 2023 Admission HPI Per Admitting Provider Vicki is a 78 year old female with PMH significant for stage IIIC left breast cancer currently on Taxol/Phesgo therapy atrial fibrillation (on Eliquis), complete heart block S/P pacemaker placement, HTN, HLP, previous CVA, and rheumatic fever who presented to the [facility] ED on 09/05/23 with complaints of generalized weakness, upper extremity paresthesias, and foul smelling urine over the past 24 hours. She was noted to be tachycardic with HR in the low 100's on arrival but was otherwise stable. Labs were significant for a leukocytosis of 14 with neutrophil predominance of 13, hgb of 7.6 (down from 12.8 as of 07/01/23), sodium of 134, mag of 1.4. Chest xray was read as negative for acute findings. The ED performed a JEFF and the patient was noted to be Hemoccult positive. A straight cath urine sample was obtained, the patient only had enough urine at that time for a urine culture. Prior to admission the patient was given 1L NSS, ordered 2 bags of 1gm IV mag-sulfate, a dose of cefepime, and her home am dose of 180 mg PO Verapamil. At the time of the exam the patient was sitting in bed in no acute distress with her sitting bedside, history was obtained from both. She is currently following with [facility] and had her 6th round of chemotherapy on 09/01/23. She has been experiencing progressive neuropathy in the BL arms and legs since chemotherapy was started, she has not yet tried medication therapy for this. Over the past 2-3 weeks, prior to this past week, she had been experiencing multiple episodes of non-bloody diarrhea daily. However, over the past week her diarrhea resolved. She came to the ED this am for significant generalized weakness and concerns for foul smelling urine this am. Denies recent fever, chills, chest pain, SOB, cough, abd pain, nausea, vomiting, dysuria, hematuria, melena, LE swelling, and recent trauma. When asked about bright red blood, her explains that the patient has been spotting in her depends over the past week, they are unsure of where she is bleeding from though. She has only been using tylenol for pain. Denies recent NSAID, tobacco, or alcohol, use. She is a full code and her would make medical decisions for her if she cannot make them herself. Please refer to Dr. Soriano's attestation for any changes to the treatment plan Principal Diagnosis Septic shock influenced by recent chemotherapy Gram-negative bacteremia Gram-negative UTI present on admission Discharge Exam Patient was seen on 2 occasions today. First visit the patient was without significant distress felt weak and tired had no focal complaints was informed that she did have urinary tract infection and were continue cefepime therapy In the afternoon around 1300 hrs. was notified by nursing of low blood pressure. Bolus was ordered. I was summoned to the bedside the patient was hypotensive in Trendelenburg she was hypothermic here attempted to close placed warm blankets ordered additional fluid bolus and albumin however the patient lost her consciousness and blood pressure and a CODE BLUE was called. Patient was resuscitated CPR was performed patient received at least 4 doses of epinephrine and 3 bicarbonate infusions. Blood pressure and pulse was regained CPR was stopped patient was intubated by the GlideScope by Dr. Boggs. Levophed was initiated patient was moved to the ICU pt was placed on nor epi, epi and vasopressin, given hydrocortisone, additional doses of bicarb and epi, she eventually had declining Blood pressures discussion with family if at the time of worsening additional resuscitation efforts would be futile, they agreed to no additional resuscitation but to keep at the level we are at, the pt continued to decline. Discussion with family regarding attempts at possible TPA for PE however the pt did not survive to have medication sent up from pharmacy, she eventually ceased to have pulse and respirations once vent was stopped at 1545 hours on 09/06/23 Discharge Data Allergies Allergy/AdvReac Type Severity Reaction Status Date / Time simvastatin Allergy Unknown muscle Verified 07/20/23 13:38 aches Sulfa (Sulfonamide Allergy Unknown ? rash Verified 07/20/23 13:38 Antibiotics) Consultations 09/05/23 13:23 ED Decision to Admit Stat Ordered Studies 09/05/23 14:31 US pelvic complete Routine 09/06/23 14:01 US point of care ultrasound Urgent 09/06/23 14:01 CT angio chest PE protocol Stat 09/06/23 14:03 CT abd pelvis IV con only Urgent 09/06/23 14:12 CT abd pelvis IV con only Urgent Hospital Course (1) Septic shock: Patient gram-negative bacteremia urinary source. Preliminary PCR suggest Klebsiella. Patient on cefepime therapy. Blood cultures obtained at time of code on the second set.\\ MRSA nasal swabs obtained Patient initiated on blood pressure support after a liter of crystalloid preceding her CODE BLUE Pending CT scan abdomen pelvis and CT scan chest with contrast to rule out PE Pt was unstable to make it to scanner and did not surive to have attempts at last ditch tpa, pt 09/06/23 at 1545 hours cause of was septic shock, gram negative bacteremia, gram negative uti (2) Atrial fibrillation with RVR: -afib RVR with HR known hx of Afib and has ppm concern would be from uti poa, hypomagnesemia plus not taking home verapamil -High sen trop is WNL on presentation additional troponin pending -S/P home dose of Verapamil and 2gm IV amg sulfate in the ED - (3) Anemia: anemia source unclear, Hgb of 7.6,is having some gynb bleeding, U/s confirms fibroids which could lead to dysfunctional bleeding typically on eliquis no on hold -Blood consent obtained on admission, iron low tibc normal also with h/p PE when breast cancer was diagnosed, 05/30 BID PPI (4) Chemotherapy-induced peripheral neuropathy: -left breast cancer, last tx 08/25/23 neoadjuvant taxol/phesgo Pt has hyponatremia, and low phosphorous, recieved sodium phos (5) Depression: -Continue fluoxetine Total Time Total Time Spent Total Time Spent (In Minutes): greater than 30 minutes required to have pt interaction and dc Discharge Plan Discharge Items Patient Disposition: Discharge Diagnosis: septic shock gram negative bacteremia gram negative urinary tract infection Other Date/Time: 09/06/23 15:45 Coding Level of Care Code 87294 INP/OBS DISCH >30 MIN Diagnoses Septic shock A41.9; R65.21 Atrial fibrillation with RVR I48.91 Anemia D64.9 Chemotherapy-induced peripheral neuropathy G62.0; T45.1X5A Depression F32.9
--- NOTE | 2023-09-06 15:51 | Procedure Note ---
Procedure Note Date of Service September 06, 2023 Note Bedside Ultrasound: Lung: Right:-No pleural effusion, B-lines appreciated posteriorly Left:-No pleural effusion, B-lines posteriorly Heart: Decreased EF, RVOT increased in size, significant enlargement of bilateral atrium, pacemaker wire appreciated, no pericardial effusion Abdomen: No free-flowing abdominal fluid, no hydronephrosis appreciated bilaterally Please note the above document was generated using voice recognition software. It may contain grammatical, syntax or spelling errors.Any formal questions or concerns about the content, text or information contained within the body of this dictation should be directly addressed to the provider for clarification. Coding CPT Codes Pulmonary/Thoracic - Pulmonary and Thoracic: 32068 US, Chest, real time with imaging documentation ([id number]) [facility] [place] Procedure Codes (Charges) Pulmonary/Thoracic Procedure 1: Pulmonary and Thoracic: 14077 US, Chest, real time with imaging documentation
[2023-09-06 16:08] LABS: Albumin Globulin Ratio 1.5 (0.9-2); Albumin Level 1.9 gm/dl (3.4-5.0); BUN Creatinine Ratio 13.7 (10-20); Bilirubin,Total 0.7 mg/dl (0.2-1.0); Calcium 5.9 mg/dl (8.6-10.3); Creatinine Clr Calc Pharmacy 34.4 ml/min; Est GFR (African American) 52.1 ml/min; Est GFR (Non-African American) 44.9 ml/min; Globulin 1.3 gm/dl (2.5-4.0); Magnesium 2.3 mg/dl (1.7-2.4); Phosphorus 7.8 mg/dl (2.5-4.9); Potassium 5.5 mmol/L (3.5-5.1); Total Protein 3.2 gm/dl (6.0-8.3); Troponin I High Sensitivity 134.2 pg/ml (0-14)
[2023-09-06 16:24] LABS: Hematocrit (blood only) 26.6 % (37.0-47.0); Hemoglobin 8.9 g/dl (12.0-16.0); Mean Corpuscular Hemoglobin 30.4 pg (25.0-34.0); Mean Corpuscular Hgb Conc 33.5 g/dL (32.0-36.0); Mean Corpuscular Volume 93.2 fL (80.0-100.0); Mean Platelet Volume 10.8 fL (9.4-12.4); Nucleated RBC # (auto) 0.03 K/uL (0.00-0.12); Nucleated RBC % (auto) 0.4 %; Platelet Count 184 K/uL (130-400); RDW Coefficient of Variation 19.9 % (11.5-14.5); RDW Standard Deviation 65.3 fL (36.4-46.3); Red Blood Count 2.93 M/uL (4.20-5.40); White Blood Count 6.82 K/ul (4.8-10.8)
[2023-09-06 16:58] LABS: Basophils # (auto) 0.02 K/uL (0.00-0.20); Basophils % (auto) 0.3 %; Eosinophils # (auto) 0.01 K/uL (0.00-0.50); Eosinophils % (auto) 0.1 %; Immature Granulocytes # (auto) 0.34 K/uL (0.01-0.20); Lymphocytes % (auto) 26.4 %; Monocytes % (auto) 1.5 %; Neutrophils # (auto) 4.55 K/uL (1.40-6.50); Neutrophils % (auto) 66.7 %; RBC Morphology Unremarkable
[2023-09-06] MEDS ORDERED: SODIUM CHLORIDE 0.9% 10ML FLUSH IV ONE (17:59)
[2023-09-06] MEDS ORDERED: SODIUM BICARB 8.4% INJ 50 MEQ/50 ML SYR IV ONE ×2 (17:59)
[2023-09-06] MEDS ORDERED: PANTOprazole 40 MG in SYRINGE 0 ML IV SCH (21:00)
--- NOTE | 2023-09-08 07:07 | Electrocardiogram Report ---
Test Reason : Blood Pressure : / mmHG Vent. Rate : 092 BPM Atrial Rate : 000 BPM P-R Int : 000 ms QRS Dur : 124 ms QT Int : 374 ms P-R-T Axes : 000 -52 -17 degrees QTc Int : 462 ms Atrial fibrillation with premature ventricular or aberrantly conducted complexes Right bundle branch block Left anterior fascicular block Bifascicular block Abnormal ECG When compared with ECG of 16-JAN-2023 12:48, Atrial fibrillation has replaced Atrial flutter (RBBB and left anterior fascicular block) has replaced Incomplete right bundle branch block Confirmed by Justino Trent ([id number]) on 09/08/2023 7:07:15 AM Referred By: REFERRED SELF Confirmed By:Justino Trent
--- NOTE | 2023-09-09 12:59 | Electrocardiogram Report ---
Test Reason : Blood Pressure : / mmHG Vent. Rate : 067 BPM Atrial Rate : 092 BPM P-R Int : 000 ms QRS Dur : 148 ms QT Int : 448 ms P-R-T Axes : 035 -80 092 degrees QTc Int : 473 ms Sinus rhythm with complete heart block and Ventricular-paced rhythm with occasional Premature ventric ular complexes Abnormal ECG When compared with ECG of 05-SEP-2023 12:03, Electronic ventricular pacemaker has replaced Atrial fibrillation Atrial fibrillation is no longer Present Confirmed by Justino Trent ([id number]) on 09/09/2023 12:59:32 PM Referred By: REFERRED SELF Confirmed By:Justino Trent
== END 2023-09-06 18:00 | disposition expired | DRG 871 ==
LOC: ED 11:54 → EDINP 13:34 → SUATTDRO 13:34 → 2E 21:11 → 1E 09-06 14:03